=== PATIENT | male | born 1930 | race African-American/Black ===

== ENCOUNTER → 2017-09-13 | Outpatient (CLI) | payer MEDICARE, OTHER ==
--- NOTE | 2017-09-13 17:38 | RADIOLOGY REPORT (SQ) ---
EXAM DESCRIPTION: CHEST PA/LAT COMPLETED DATE/TIME: 09/13/2017 5:24 pm REASON FOR STUDY: Cough, Dementia in other diseases classified elsewhere with behavioral dist COMPARISON: 09/07/2016 EXAM PARAMETERS: NUMBER OF VIEWS: two views TECHNIQUE: Digital Frontal and Lateral radiographic views of the chest acquired. RADIATION DOSE: NA LIMITATIONS: none FINDINGS: LUNGS AND PLEURA: Mild chronic interstitial changes. No infiltrates or effusions. No mas s. MEDIASTINUM AND HILAR STRUCTURES: No masses or contour abnormalities. HEART AND VASCULAR STRUCTURES: No significant abnormality. BONES: No acute findings. HARDWARE: Pacemaker/defibrillator. OTHER: No other significant finding. IMPRESSION: Mild chronic lung changes with no acute cardiopulmonary disease. TECHNICAL DOCUMENTATION: JOB ID: [id number] [employer]- All Rights Reserved
== END ==
LOC: RAD 16:58
PROVIDERS: ATTEND Family Medicine
DX: R05 Cough (principal); F02.81 Dementia in other diseases classified elsewhere, unspecified severity, with behavioral disturbance
CPT/HCPCS: 71020

== ENCOUNTER 2017-09-17 15:45 | Emergency (ER) | payer MEDICARE, OTHER ==
[2017-09-17 16:36] LABS: ABSOLUTE EOSINOPHILS # (AUTO) 0.2 10^3/uL (0.0-0.6); ABSOLUTE LYMPHOCYTES (AUTO) 1.3 10^3/uL (0.5-4.7); ABSOLUTE MONOCYTES (AUTO) 0.5 10^3/uL (0.1-1.4); BASOPHILS % (AUTO) 0.5 % (0-2); EOSINOPHILS % (AUTO) 1.6 % (0-6); HEMOGLOBIN 17.9 g/dL (13.5-17.0); HGB HCT DIFFERENCE -2.2; LYMPHOCYTES % (AUTO) 12.9 % (13-45); MEAN CORPUSCULAR HEMOGLOBIN 33.1 pg (27.0-33.4); MEAN CORPUSCULAR VOLUME 104 fl (80-97); MONOCYTES % (AUTO) 4.6 % (3-13); RED CELL DISTRIBUTION WIDTH 17.7 % (11.5-14.0); SEGMENTED NEUTROPHILS % (AUTO) 80.4 % (42-78)
--- NOTE | 2017-09-17 16:37 | ER Document Report ---
ED Respiratory Problem - General Chief Complaint: Choked/Choking Stated Complaint: DIFFICULTY BREATHING Time Seen by Provider: 09/17/17 16:36 Mode of Arrival: Medic Information source: Patient, Relative - Patient's daughter is here with the patient. She is giving the information secondary to the patient having severe dementia. Cannot obtain history due to: Dementia TRAVEL OUTSIDE OF THE [place] IN LAST 30 DAYS: No - HPI Notes: Earlier today prior to arrival the patient was drinking water when he choked on it. He came out of his mouth and his nose. The daughter wanted him brought in to be examined to make sure he did not have any in his lungs. She states that he does see Dr. Monte and he had recent blood work however they have not gotten the results of it and she would like that as well. She states that he is due for a swallow study on the of this month and she is wondering if we can get it done today in the emergency department. Patient has no complaints - Related Data Allergies/Adverse Reactions: No Known Allergies Allergy (Unverified 12/06/11 18:45) Past Medical History - General Information source: [facility] Records Cannot obtain history due to: Dementia - Social History Smoking Status: Former Smoker Cigarette use (# per day): No Frequency of alcohol use: None Drug Abuse: None Lives with: Spouse/Significant other Family History: Reviewed & Not Pertinent - Past Medical History Cardiac Medical History: Reports: Hx Congestive Heart Failure, Hx Coronary Artery Disease, Hx Hypercholesterolemia, Hx Hypertension Denies: Hx Atrial Fibrillation, Hx Heart Attack, Hx Peripheral Vascular Disease, Hx Pulmonary Embolism, Hx Heart Murmur Pulmonary Medical History: Reports: Hx Bronchitis, Hx COPD, Hx Pneumonia Denies: Hx Asthma, Hx Respiratory Failure, Hx Sleep Apnea, Hx Tuberculosis Neurological Medical History: Reports: Hx Cerebrovascular Accident. Denies: Hx Seizures Renal/ Medical History: Reports: Hx Benign Prostatic Hyperplasia. Denies: Hx End Stage Renal Disease, Hx Kidney Stones, Hx Peritoneal Dialysis Malignancy Medical History: Denies Hx Lung Cancer Musculoskeltal Medical History: Reports Hx Arthritis, Denies Hx Fibromyalgia, Denies Hx Multiple Sclerosis, Denies Hx Muscular Dystrophy Psychiatric Medical History: Reports: Hx Dementia Denies: Hx Depression Traumatic Medical History: Denies: Hx Fractures Past Surgical History: Reports: Hx Cardiac Surgery - pacemaker dfib placed, Hx Pacemaker - Immunizations Hx Diphtheria, Pertussis, Tetanus Vaccination: Yes - unk Hx Pneumococcal Vaccination: 10/17/08 Review of Systems - Review of Systems Notes: Systems is obtained from the daughter as the patient has dementia. It is limited tothis. Constitutional: denies: Fever EENT: Difficulty swallowing Respiratory: Cough, Short of breath Gastrointestinal: denies: Diarrhea, Vomiting Hematologic/Lymphatic: No symptoms reported Neurological/Psychological: Confusion, Dementia Physical Exam - Vital signs Vitals: Pulse Ox 98 09/17/17 15:49 - Notes Notes: PHYSICAL EXAMINATION: GENERAL: Mireya zazueta male sitting quietly in the bed appearing to be in no acute distress. HEAD: Atraumatic, normocephalic. EYES: Pupils equal round and reactive to light, extraocular movements intact, sclera anicteric, conjunctiva are normal. ENT: Nares patent, oropharynx clear without exudates. Moist mucous membranes. NECK: Normal range of motion, supple without lymphadenopathy LUNGS: Mild expiratory wheezes left greater than right. Rhonchi left lower lung base. HEART: Regular rate and rhythm without murmurs. Pacer left anterior chest wall no signs or symptoms of infection. ABDOMEN: Soft, nontender, nondistended abdomen. No guarding, no rebound. No masses appreciated. Musculoskeletal: Normal range of motion, no pitting or edema. No cyanosis. NEUROLOGICAL: Cranial nerves grossly intact. Normal speech, alert to self only. Normal sensory, motor exams PSYCH: Normal mood, normal affect. SKIN: Warm, Dry, normal turgor, no rashes or lesions noted. Course - Re-evaluation Re-evalutation: 09/17/17 19:57 Patient remained stable while in the emergency department. I did discuss with the patient's daughter that the patient did have increased sodium. I did tell her that she would need to have this blood test repeated in the next few days. I told her to encourage water for the patient. She verbalized understanding. Patient does have mildly increased troponin. He has renal insufficiency as well as dehydration as well as elevated troponins historically. Patient did not complain of any chest pain today. His EKG does not show any acute changes. Will be discharged home post follow-up. Discussed with the patient's daughter that end-stage dementia does result in the patient having failure to thrive which includes decreased p.o. intake she verbalized understanding - Vital Signs Vital signs: Temp Pulse Resp BP Pulse Ox 22 H 123/70 99 09/17/17 19:01 09/17/17 19:01 09/17/17 19:01 - Laboratory Result Diagrams: 09/17/17 16:15 09/17/17 16:15 Laboratory results interpreted by me: 09/17/17 09/17/17 09/17/17 16:15 16:15 18:30 Hgb 17.9 H Hct 55.9 H MCV 104 H RDW 17.7 H Plt Count 951 H Seg Neutrophils % 80.4 H Lymphocytes % 12.9 L Sodium 157.4 H Chloride 116 H BUN 23 H Creatinine 1.45 H Est GFR ( Amer) 56 L Est GFR (Non-Af Amer) 46 L Glucose 138 H Creatine Kinase 45 L Urine Urobilinogen 2.0 H Urine Ascorbic Acid 40 H - Diagnostic Test Radiology results interpreted by me: 09/17/17 17:02 No acute abnormality - EKG Interpretation by Me Rate: Tachycardia - 105 V paced - Transfer of Care Notes: 09/17/17 18:52 Review the labs as well as a chest x-ray results and EKG with the patient's daughter. I also went over adults of test on the end of August. I did tell the patient's daughter that the patient was mildly dehydrated and that he would need to be encouraged to take in fluids. She is to be discharged home in the care of his daughter. He is to follow-up this swallow study in the . I did tell the patient's daughter to watch the patient closely over the next week. If he develops shortness of breath fever or a productive cough he is to follow-up with his primary medical doctor immediately or present to the ER for further evaluation. Patient's daughter verbalized understanding she was agreeable to the discharge plan Discharge - Discharge Clinical Impression: Hypernatremia, Mild dehydration Dementia Qualifiers: Dementia type: unspecified type Condition: Stable Additional Instructions: Is encouraged the patient to drink water. Please also follow-up with his primary medical doctor within the next week for repeat sodium level. Please also follow-up with the swallow eval as scheduled on September 29. Return to emergency department if you have any concerns Referrals: ALANNA MONTE MD [Primary Care Provider] - Follow up in 3-5 days (Please have a repeat sodium level checked in the next week)
[2017-09-17 16:49] LABS: HEMATOCRIT 55.9 % (37.9-51.0)
--- NOTE | 2017-09-17 16:53 | RADIOLOGY REPORT (SQ) ---
11 EXAM DESCRIPTION: CHEST SINGLE VIEW COMPLETED DATE/TIME: 09/17/2017 4:40 pm REASON FOR STUDY: bed 4 db COMPARISON: 817 EXAM PARAMETERS: NUMBER OF VIEWS: One view. TECHNIQUE: Single frontal radiographic view of the chest acquired. RADIATION DOSE: NA LIMITATIONS: None. FINDINGS: LUNGS AND PLEURA: No opacities, masses or pneumothorax. No pleural effusion. MEDIASTINUM AND HILAR STRUCTURES: No masses. Contour normal. HEART AND VASCULAR STRUCTURES: Heart normal in size. Normal vasculature. BONES: No acute findings. HARDWARE: Left anterior chest wall AICD. OTHER: No other significant finding. IMPRESSION: Stable radiographic appearance of the chest. No evidence of acute cardiopulmonary proce ss. TECHNICAL DOCUMENTATION: JOB ID: [id number] [employer]- All Rights Reserved
[2017-09-17 16:58] LABS: ALANINE AMINOTRANSFERASE 22 U/L (21-72); ALBUMIN 4.4 g/dL (3.5-5.0); ALKALINE PHOSPHATASE 89 U/L (38-126); ANION GAP 17 (5-19); ASPARTATE AMINO TRANSFERASE 25 U/L (17-59); BILIRUBIN,DIRECT 0.3 mg/dL (0.0-0.4); BILIRUBIN,TOTAL 0.4 mg/dL (0.2-1.3); BLOOD UREA NITROGEN 23 mg/dL (7-20); CALCIUM 9.7 mg/dL (8.4-10.2); CARBON DIOXIDE 24 mmol/L (22-30); CHLORIDE 116 mmol/L (98-107); CREATINE KINASE 45 U/L (55-170); CREATININE RESULT 1.45 mg/dL (0.52-1.25); GLUCOSE 138 mg/dL (75-110); POTASSIUM 4.7 mmol/L (3.6-5.0); SODIUM 157.4 mmol/L (137-145); TOTAL PROTEIN 7.7 g/dL (6.3-8.2)
[2017-09-17 17:09] LABS: CREATINE KINASE MB 1.53 ng/mL (<4.55)
[2017-09-17 17:16] LABS: TROPONIN I 0.034 ng/mL
[2017-09-17] MEDS ORDERED: NORMAL SALINE 500 ML IV ONE (17:23)
[2017-09-17 19:00] LABS: APPEARANCE,URINE CLEAR; BILIRUBIN,URINE NEGATIVE (NEGATIVE); GLUCOSE, URINE NEGATIVE (NEGATIVE); KETONES,URINE NEGATIVE (NEGATIVE); LEUKOCYTE ESTERASE,URINE NEGATIVE (NEGATIVE); NITRITE,URINE NEGATIVE (NEGATIVE); PROTEIN,URINE NEGATIVE (NEGATIVE); URINE SPECIFIC GRAVITY 1.017
[2017-09-17 20:45] VITALS: BP 137/70
--- NOTE | 2017-09-18 09:19 | EKG REPORT ---
SEVERITY:- ABNORMAL ECG - VENTRICULAR-PACED COMPLEXES NONSPECIFIC ST DEPRESSION POSSIBLE ATRIAL FIBRILLATION , REPEAT EKG WITH NO BASELINE TREMORS IF POSSIBLE. : Confirmed by: David Alexis MD 18-Sep-2017 09:18:21
== END 2017-09-17 20:44 | disposition home or self-care (01) ==
LOC: ER 15:45
DX: E87.0 Hyperosmolality and hypernatremia (principal); E86.0 Dehydration; N28.9 Disorder of kidney and ureter, unspecified; R13.10 Dysphagia, unspecified; I25.10 Atherosclerotic heart disease of native coronary artery without angina pectoris; I10 Essential (primary) hypertension; J44.9 Chronic obstructive pulmonary disease, unspecified; R05 Cough; R00.0 Tachycardia, unspecified; R06.02 Shortness of breath; F03.90 Unspecified dementia, unspecified severity, without behavioral disturbance, psychotic disturbance, mood disturbance, and anxiety; Z87.891 Personal history of nicotine dependence; Z95.810 Presence of automatic (implantable) cardiac defibrillator
CPT/HCPCS: 93005; 99285; 96360; 36415; 82553; 82550; 85025; 80053; 81001; 84484; 71010; 93010; J7040

== ENCOUNTER → 2017-10-11 | Outpatient (CLI) | payer MEDICARE, OTHER ==
[2017-10-11 09:31] LABS: ANION GAP 9 (5-19); BLOOD UREA NITROGEN 24 mg/dL (7-20); CALCIUM 9.6 mg/dL (8.4-10.2); CARBON DIOXIDE 26 mmol/L (22-30); CHLORIDE 109 mmol/L (98-107); CREATININE RESULT 1.47 mg/dL (0.52-1.25); GLUCOSE 101 mg/dL (75-110); POTASSIUM 4.2 mmol/L (3.6-5.0); SODIUM 144.3 mmol/L (137-145)
--- NOTE | 2017-10-11 11:34 | ST Modified Barium Swallow ---
Recommendation - Recommendations Recommendations: No skilled intervention indicated, no diet change recommendations. Advised patient's daughter to alternate bites and sips, and encourage occasional dry swallows during meals. Voiced understanding. Medical Diagnoses - Medical Diagnoses Medical Diagnosis Description & ICD-10 Code(s): dysphagia R13.10 Other Medical Diagnoses/Co-Morbidities: Per family report- 2 prior CVAs, pacemaker ST Modified Barium Swallow - General Date: 10/11/17 Referring Physician: Rah Carreno MD Date of Onset: 09/11/17 - approximate onset date Reason for Referral: increased coughing at meals - History History obtained from: Family -: Medical - Patient arrived with daughter, who acted as historian. She reports that the patient has demonstrated increased coughing during meals for about 1 month. The patient has had 2 prior CVAs, most recent in 2013. No recent pneumonia reported. Medications: per medication list brought by daughter: allopurinol, aricept, aspirin, flomax, acetazolamide, lasix, levetracetam, omeprazole, proair HFA, simvastatin, temazepam, flonase Allergies: none reported - Functional Status Prior Functional Status: INDEPENDENT: feeding - independent - Subjective Patient/caregiver goal(s): safe swallow Cognitive-Linguistic Function: Moderately Impaired Speech Intelligibility: Moderately dysarthric Current Nutritional Means: PO Current PO diet: Regular Current symptoms: Coughing Pain: Patient reports, 0/5 - Objective Assessment: Upright, Left Lateral - Food Trials Used Food trials used: Thin liquids, Pureed, Regular The patient: Was Able to Self Feed - Oral-Motor Skills Laryngeal Function: Volitional Cough - wfl, no volitional swallow - Assessment Oral prep: Normal Labial closure: Adequate Leakage: None Mastication: Adequate Lingual Movement: Normal Oral stage: Age appropriate - Pharyngeal Stage Initiation of Pharyngeal Stage Reflex: Normal Decreased laryngeal elevation: No Reduced Velopharyngeal Closure: no Reduced pressure generation: No reduced tongue-based retraction: No Pre-swallow pooling in valleculae: None Pre-Swallow pooling in pyriforms: None Reduced Thyro-Hyoid approximation: No Reduced epiglottic excursion: No Multiple Swallows with: Cleared w/ Liquid Assist Post-swallow residulas vallecular: Mild Post-Swallow residuals in pyriforms: None Pharyngeal Stage Comments: Timely swallow reflex noted. Some mild residue present in valleculae after the swallow on multiple textures. Patient able to clear residue with a liquid wash or with second swallow, needed verbal cue to complete dry swallow to clear residue. Penetration of residue from thin liquid trial seen, no aspiration. - Fall Risk Assessment Medications/Conditions that increase fall risks include: Antidepressants, sedatives, anti-arrhythmic, diuretic, benzodiazipenes, neuroleptics. BP regulation problems, cardiac problems, balance or gait deficits, neurological problems. Is patient considered at risk for falls: age appropriate Fall Risk Actions Taken: No action needed - Behavioral Observations During evaluation process patient: was pleasant, was cooperative Mental Status: Other - some confusion noted - Treatment / Educational Needs: Treatment/Education Needs: Treatment consisted of patient education on the role of the Speech Pathologist. Patient's plan of care and golas were communicated as well as scheduling and attendance policies. Recommendations for initial home program were shared. Patient demonstrated understanding and verbalized agreement. - Impression/Summary Laryngeal Penetration: Yes, Flash, after swallow Consistency: Thin Tracheal Aspiration: no Patient presents with: Pharyngeal stage dysph., Mild-Moderate Risk of Aspiration: Mild Risk of nutritional compromise: WNL Evaluation and Findings: Timely swallow reflex seen, mild residue noted in valleculae after the swallow on multiple textures. Residue of thin liquid seen to penetrate, but did not aspirate. Residue cleared with second swallow, patient required verbal cue to complete second swallow. - Recommendations Solid diet recommendations: Regular - may be downgraded due to patient's comfort level or dentition Liquid Diet Modification: Thin Pt/Family education and followup with MD: Yes Dysphagia therapy with [employer]: no Recommended techniques: Fully Upright During Meal, Small Bites and Sips, Alternate Bites/Sips Information, Precautions and Recommendations: Patient (Verbal), Family Member ( Written), Family Member (Verbal) - Time Total Time: 20 - Plan of Care Strategies to optimize patient understanding include:: ongoing assessment of educational needs, implementation of educational strategies, and re-education. - - -: Thank you for the opportunity to work with this patient and his/her family. Should you have any questions about this patient's plan or progress, I can be reached at [phone]. Charge G Code? - - -: Yes ST F.L. Impairment Category - Rationale Based On Rationale Based On: Func. Asses. Tool Results - Swallowing Current G8996: CI 1-19% Impaired Goal G8997: CI 1-19% Impaired Discharge G8998: CI 1-19% Impaired
--- NOTE | 2017-10-11 14:53 | RADIOLOGY REPORT (SQ) ---
EXAM DESCRIPTION: COOKIE SWALLOW COMPLETED DATE/TIME: 10/11/2017 8:59 am REASON FOR STUDY: DYSPHAGIA R13.10 DYSPHAGIA, UNSPECIFIED COMPARISON: Modified barium swallow 04/12/2012 TECHNIQUE: Videofluoroscopic swallowing examination was performed in conjunction with speech patholo gy. Videofluoroscopic imaging was obtained and reviewed and these are the findings: RADIATION DOSE: 2 minutes 34 seconds of fluoroscopy was used. 2 images saved to PACS. LIMITATIONS: None FINDINGS: The patient was brought into the fluoro room and placed upright on a modified barium swall ow chair. The patient was then given multiple consistencies mixed with barium to swallow under live fluoroscopic video guidance. According to the Speech Pathologist there was no penetration or aspirat ion. Post swallow residual contrast seen within the vallecular. Mild cricopharyngeal hypertrophy. IMPRESSION: NO EVIDENCE OF PENETRATION OR ASPIRATIONPLEASE SEE SPEECH PATHOLOGIST REPORT FOR OTHER F INDINGS AND RECOMMENDATIONS. COMMENT: Quality ID [id number]: Final reports for procedures using fluoroscopy that document radiation exp osure indices, or exposure time and number of fluorographic images (if radiation exposure indices are not available) TECHNICAL DOCUMENTATION: JOB ID: [id number] [employer]- All Rights Reserved
== END ==
LOC: RAD 08:15
PROVIDERS: ATTEND Family Medicine
DX: R13.10 Dysphagia, unspecified (principal); F02.81 Dementia in other diseases classified elsewhere, unspecified severity, with behavioral disturbance
CPT/HCPCS: 36415; 80048; 74230; 92611; G8996; G8997; G8998

== ENCOUNTER 2018-04-19 21:20 | Inpatient (IN) | payer OTHER, MEDICARE ==
--- NOTE | 2018-04-19 21:53 | ER Document Report ---
ED Respiratory Problem - General Chief Complaint: Shortness Of Breath Stated Complaint: COUGH/CONGESTION Time Seen by Provider: 04/19/18 21:35 Mode of Arrival: Medic Information source: Relative TRAVEL OUTSIDE OF THE [place] IN LAST 30 DAYS: No - HPI Patient complains to provider of: Cough Onset: This afternoon Duration: Intermittent episodes Initiating Event: No: Allergy, Aspiration/Choking, Exertion, Exposure to chemicals, Exposure to dust, Exposure to fumes, Exposure to mold, Exposure to smoke, Out of meds, Sports/exercise, URI, Other Quality of pain: No pain Severity: Moderate Context: Other - DEBILITATED 2nd TO PRIOR CVA's. denies: Hx asthma, Hx CHF, Hx COPD, Malignancy, Recent cardiac event, Recent foreign travel, Recent long distance trvl, Recent immobilization, Recent surgery, Smoker Short of Breath: Mild Cough: Productive Sputum amount: Small - WEAKNESS, HAS DIFFICULTY MOBILIZING Associated symptoms: Congestion, Cough, Sweaty, Other - COMPLAINED THIS PM OF FEELING UNWELL. DAUGHTER SAYS THIS IS UNUSUAL.. denies: Chills, Fever Similar symptoms previously: Yes - NOT RECENT Recently seen / treated by doctor: No - Related Data Allergies/Adverse Reactions: No Known Allergies Allergy (Unverified 12/06/11 18:45) Past Medical History - General Information source: Relative - Social History Smoking Status: Former Smoker - QUIT DECADES AGO Chew tobacco use (# tins/day): No Frequency of alcohol use: Rare Drug Abuse: None Lives with: Family - DAUGHTER Family History: Reviewed & Not Pertinent Patient has suicidal ideation: No Patient has homicidal ideation: No - Past Medical History Cardiac Medical History: Reports: Hx Congestive Heart Failure, Hx Coronary Artery Disease, Hx Hypercholesterolemia, Hx Hypertension Denies: Hx Atrial Fibrillation, Hx Heart Attack, Hx Peripheral Vascular Disease, Hx Pulmonary Embolism, Hx Heart Murmur Pulmonary Medical History: Reports: Hx Bronchitis, Hx COPD, Hx Pneumonia Denies: Hx Asthma, Hx Respiratory Failure, Hx Sleep Apnea, Hx Tuberculosis Neurological Medical History: Reports: Hx Cerebrovascular Accident - x 2. Denies: Hx Seizures Endocrine Medical History: Reports: None Renal/ Medical History: Reports: Hx Benign Prostatic Hyperplasia. Denies: Hx End Stage Renal Disease, Hx Kidney Stones, Hx Peritoneal Dialysis Malignancy Medical History: Reports None, Denies Hx Lung Cancer GI Medical History: Reports: None Musculoskeltal Medical History: Reports Hx Arthritis, Denies Hx Fibromyalgia, Denies Hx Multiple Sclerosis, Denies Hx Muscular Dystrophy Psychiatric Medical History: Reports: Hx Dementia Denies: Hx Depression Traumatic Medical History: Reports: None. Denies: Hx Fractures Past Surgical History: Reports: Hx Cardiac Surgery - pacemaker dfib placed, Hx Pacemaker - Immunizations Hx Diphtheria, Pertussis, Tetanus Vaccination: Yes - unk Hx Pneumococcal Vaccination: 10/17/08 Review of Systems - Review of Systems Constitutional: See HPI EENT: No symptoms reported Cardiovascular: No symptoms reported Respiratory: See HPI Gastrointestinal: No symptoms reported Genitourinary: No symptoms reported Musculoskeletal: No symptoms reported Skin: No symptoms reported Neurological/Psychological: Weakness, Speech impairment - MILD, CHRONIC. denies : Confusion Physical Exam - Vital signs Vitals: Pulse Ox 98 04/19/18 21:28 Interpretation: Tachycardic, Tachypneic - General General appearance: Lethargic - MILD, AWAKENS TO VOICE In distress: None - HEENT Head: Normocephalic Eyes: Normal Conjunctiva: Normal Ears: Normal Nasal: Normal Mouth/Lips: Normal Mucous membranes: Dry - MILDLY Pharynx: Normal Neck: Normal, Supple - Respiratory Respiratory status: No respiratory distress, Tachypnea Chest status: Nontender Breath sounds: Rales - RML, Rhonchi - RML - Cardiovascular Rhythm: Regular Heart sounds: Normal auscultation Murmur: No - Abdominal Inspection: Normal Distension: No distension Bowel sounds: Hypoactive - Extremities General upper extremity: Normal inspection General lower extremity: Normal inspection - Neurological Neuro grossly intact: Yes Cognition: Normal Orientation: AAOx4 - Psychological Associated symptoms: Normal affect, Normal mood - Skin Skin Temperature: Warm Skin Moisture: Dry Skin Color: Normal Skin Turgor: Elastic Course - Vital Signs Vital signs: Temp Pulse Resp BP Pulse Ox 98.5 F 29 H 113/78 96 04/19/18 22:35 04/19/18 23:01 04/19/18 23:01 04/19/18 23:01 - Laboratory Result Diagrams: 04/19/18 21:20 04/19/18 21:20 Laboratory results interpreted by me: 04/19/18 04/19/18 04/19/18 21:20 21:20 21:20 Hct 52.0 H MCV 101 H RDW 16.1 H Plt Count 934 H Sodium 147.0 H Potassium 5.1 H BUN 24 H Creatinine 1.35 H Est GFR (Non-Af Amer) 50 L NT-Pro-B Natriuret Pep 4920 H Urine Protein Urine Urobilinogen Urine Ascorbic Acid 04/19/18 22:33 Hct MCV RDW Plt Count Sodium Potassium BUN Creatinine Est GFR (Non-Af Amer) NT-Pro-B Natriuret Pep Urine Protein 30 H Urine Urobilinogen 4.0 H Urine Ascorbic Acid 20 H - Diagnostic Test Radiology reviewed: Image reviewed, Reports reviewed - EKG Interpretation by Me EKG shows normal: abnormal: Sinus rhythm - PACED RHYTHM Rate: Normal Rhythm: PVC's Jacobson/QRS: IVCD - Consults DR. MONTE Time consulted: 23:47 Consulted provider: will see as inpatient Discharge - Discharge Clinical Impression: Dehydration, Hypoxemia, Tachypnea, CVA, old, hemiparesis Condition: Fair Disposition: ADMITTED OBSERVATION Admitting Provider: Wai Unit Admitted: Telemetry Referrals: ALANNA MONTE MD [Primary Care Provider] - Follow up as needed
[2018-04-19 21:59] LABS: HEMOGLOBIN 16.9 g/dL (13.5-17.0); MEAN CORPUSCULAR HEMOGLOBIN 32.9 pg (27.0-33.4); MEAN CORPUSCULAR HGB CONC 32.5 g/dL (32.0-36.0); MEAN CORPUSCULAR VOLUME 101 fl (80-97); PLATELET COUNT 934 10^3/uL (150-450); RED BLOOD COUNT 5.15 10^6/uL (4.35-5.55); RED CELL DISTRIBUTION WIDTH 16.1 % (11.5-14.0); WHITE BLOOD COUNT 7.6 10^3/uL (4.0-10.5)
[2018-04-19 22:13] LABS: ALANINE AMINOTRANSFERASE 27 U/L (21-72); ALBUMIN 4.1 g/dL (3.5-5.0); ALKALINE PHOSPHATASE 69 U/L (38-126); ANION GAP 12 (5-19); ASPARTATE AMINO TRANSFERASE 26 U/L (17-59); BILIRUBIN,DIRECT 0.4 mg/dL (0.0-0.4); BILIRUBIN,TOTAL 0.4 mg/dL (0.2-1.3); BLOOD UREA NITROGEN 24 mg/dL (7-20); CALCIUM 9.6 mg/dL (8.4-10.2); CARBON DIOXIDE 30 mmol/L (22-30); CHLORIDE 105 mmol/L (98-107); GLUCOSE 105 mg/dL (75-110); POTASSIUM 5.1 mmol/L (3.6-5.0); TOTAL PROTEIN 7.4 g/dL (6.3-8.2)
[2018-04-19 22:18] LABS: ABSOLUTE LYMPHOCYTES# (MANUAL) 1.1 10^3/uL (0.5-4.7); ABSOLUTE MONOCYTES # (MANUAL) 0.6 10^3/uL (0.1-1.4); ABSOLUTE NEUTROPHILS# (MANUAL) 5.5 10^3/uL (1.7-8.2); BAND NEUTROPHILS % (MANUAL) 4 % (3-5); BASOPHILS % (MANUAL) 1 % (0-2); EOSINOPHILS % (MANUAL) 4 % (0-6); LYMPHOCYTES % (MANUAL) 14 % (13-45); MONOCYTES % (MANUAL) 8 % (3-13); SEGMENTED NEUTROPHILS % (MAN) 69 % (42-78); TOTAL CELLS COUNTED 100
[2018-04-19 22:19] LABS: ANISOCYTOSIS 1+; PLATELET COMMENT INCREASED
[2018-04-19 22:22] LABS: POIKILOCYTOSIS SLIGHT; POLYCHROMASIA SLIGHT; TARGET CELLS SLIGHT
[2018-04-19 22:25] LABS: CREATINE KINASE MB 1.36 ng/mL (<4.55); TROPONIN I 0.022 ng/mL
--- NOTE | 2018-04-19 22:43 | RADIOLOGY REPORT (SQ) ---
EXAM DESCRIPTION: XR CHEST 1 VIEW COMPLETED DATE/TME: 04/19/2018 21:35 CLINICAL HISTORY: 87 years Male, CONGESTION, HYPOXEMIA COMPARISON: 12.2.17. 09/13/2017, report only. NUMBER OF VIEWS/TECHNIQUE: 1/AP FINDINGS: Adequate lung volume, mild chronic interstitial markings, normal cardiac silhouette, atherosclerosis, left cardiac stimulator with leads, and intact bony thorax. IMPRESSION: No acute cardiopulmonary findings.
[2018-04-19] MEDS ORDERED: LEVOFLOXACIN 750 MG/D5W RTU 750 MG/150 ML RTUPB IV ONE (22:45)
[2018-04-19] MEDS ORDERED: NORMAL SALINE 1000 ML 500 ML IV PRN (22:48)
[2018-04-19 22:51] LABS: APPEARANCE,URINE SLIGHTLY-CLOUDY; BILIRUBIN,URINE NEGATIVE (NEGATIVE); COLOR,URINE YELLOW; GLUCOSE, URINE NEGATIVE (NEGATIVE); KETONES,URINE NEGATIVE (NEGATIVE); LEUKOCYTE ESTERASE,URINE NEGATIVE (NEGATIVE); NITRITE,URINE NEGATIVE (NEGATIVE); PROTEIN,URINE 30 mg/dL (NEGATIVE); URINE SPECIFIC GRAVITY 1.019
[2018-04-19] MEDS ORDERED: NORMAL SALINE 1000 ML 1,000 ML IV PRN (23:54)
[2018-04-19] MEDS ORDERED: IPRATROPIUM/ALBUTEROL 0.5-2.5 MG/3 ML AMPUL NEB PRN (23:54)
[2018-04-19] MEDS ORDERED: ACETAMINOPHEN 325 MG TABLET PO PRN (23:54)
[2018-04-19] MEDS ORDERED: GUAIFENESIN SYRP 200 MG/10 ML UDC PO PRN (23:54)
[2018-04-20] MEDS ORDERED: ACETAMINOPHEN 325 MG TABLET PO PRN (00:39)
[2018-04-20 06:27] LABS: ABSOLUTE BASOPHILS # (AUTO) 0.1 10^3/uL (0.0-0.2); ABSOLUTE EOSINOPHILS # (AUTO) 0.2 10^3/uL (0.0-0.6); ABSOLUTE LYMPHOCYTES (AUTO) 0.8 10^3/uL (0.5-4.7); ABSOLUTE MONOCYTES (AUTO) 0.5 10^3/uL (0.1-1.4); ABSOLUTE NEUT (AUTO) 5.3 10^3/uL (1.7-8.2); BASOPHILS % (AUTO) 1.4 % (0-2); EOSINOPHILS % (AUTO) 2.4 % (0-6); HEMATOCRIT 43.2 % (37.9-51.0); LYMPHOCYTES % (AUTO) 11.8 % (13-45); MEAN CORPUSCULAR HEMOGLOBIN 32.5 pg (27.0-33.4); MEAN CORPUSCULAR HGB CONC 32.6 g/dL (32.0-36.0); MEAN CORPUSCULAR VOLUME 100 fl (80-97); MONOCYTES % (AUTO) 7.3 % (3-13); PLATELET COUNT 734 10^3/uL (150-450); RED BLOOD COUNT 4.33 10^6/uL (4.35-5.55); RED CELL DISTRIBUTION WIDTH 16.3 % (11.5-14.0); SEGMENTED NEUTROPHILS % (AUTO) 77.1 % (42-78); TOTAL CELLS COUNTED % (AUTO) 100 %; WHITE BLOOD COUNT 6.8 10^3/uL (4.0-10.5)
[2018-04-20 06:36] LABS: HEMOGLOBIN 14.1 g/dL (13.5-17.0)
[2018-04-20 06:41] LABS: ALANINE AMINOTRANSFERASE 24 U/L (21-72); ALBUMIN 3.3 g/dL (3.5-5.0); ALKALINE PHOSPHATASE 57 U/L (38-126); ANION GAP 11 (5-19); ASPARTATE AMINO TRANSFERASE 19 U/L (17-59); BILIRUBIN,DIRECT 0.3 mg/dL (0.0-0.4); BILIRUBIN,TOTAL 0.4 mg/dL (0.2-1.3); BLOOD UREA NITROGEN 23 mg/dL (7-20); CALCIUM 8.7 mg/dL (8.4-10.2); CARBON DIOXIDE 23 mmol/L (22-30); CHLORIDE 111 mmol/L (98-107); GLUCOSE 87 mg/dL (75-110); POTASSIUM 4.8 mmol/L (3.6-5.0); SODIUM 145.1 mmol/L (137-145); TOTAL PROTEIN 5.9 g/dL (6.3-8.2)
--- NOTE | 2018-04-20 07:35 | EKG REPORT ---
SEVERITY:- ABNORMAL ECG - VENTRICULAR-PACED COMPLEXES NON-DIAGNOSTIC : Confirmed by: David Alexis MD 20-Apr-2018 07:34:50
[2018-04-20] MEDS ORDERED: CEFTRIAXONE SODIUM 1,000 MG in DEXTROSE 5%-WATER 50 ML IV SCH (10:00)
[2018-04-20] MEDS ORDERED: CEFTRIAXONE 1 GM/D5W RTU 1 GM/50 ML RTUPB IV SCH (10:00)
[2018-04-20] MEDS: ACETAZOLAMIDE 250 MG TABLET PO SCH (11:04)
[2018-04-20] MEDS: ENOXAPARIN SODIUM INJ 30 MG/0.3 ML DISP.SYRIN SUBCUT SCH (11:04)
[2018-04-20] MEDS: ALLOPURINOL 100 MG TABLET PO SCH (11:08)
[2018-04-20] MEDS: ASPIRIN 81 MG TABLET, ENT COATED PO SCH (11:09)
[2018-04-20] MEDS: AZITHROMYCIN 250 MG TABLET PO SCH (11:09)
[2018-04-20] MEDS: LANSOPRAZOLE 30 MG TAB.RAP.DR PO SCH (11:10)
[2018-04-20] MEDS: LEVETIRACETAM 500 MG TABLET PO SCH ×2 (11:10→17:30)
[2018-04-20] MEDS: TAMSULOSIN HCL 0.4 MG CAP.SR.24H PO SCH (11:11)
[2018-04-20] MEDS: CEFEPIME 1 GM/D5W RTU 1 GM/50 ML RTUPB IV SCH ×2 (11:12→22:21)
[2018-04-20] MEDS ORDERED: NORMAL SALINE 1000 ML 1,000 ML IV PRN (11:50)
--- NOTE | 2018-04-20 11:59 | PDOC H&P ---
History of Present Illness Admission Date/PCP: 04/19/18 23:58 ALANNA MONTE MD Patient complains of: Cough congestion'sAnd weakness History of Present Illness: HEMANT GRIFFITH is a 87 year old male This is a 87-year-old male with a significant history of the dementia with the history of the stroke and chronic sinus problem with the cough currently live with the family brought to the emergency department because patients not feeling well and increasing more cough and congestion'sIn the emergency department initial workup was all stable and ER physician thought patients may have labile dehydration and possible underlying pneumonia and decided to admit in the hospital for further evaluations Patients receive the IV antibiotic and IV fluid when I saw the patient on the floor with the family on a bedside patient's feeling much better still with some mild cough and congestion's Patient as usual underlying significant dementia but alert awake's patient's speech is always slurred denied any other symptoms Past Medical History Cardiac Medical History: Reports: Congestive Heart Failure, Coronary Artery Disease, Hyperlipidema, Hypertension Denies: Atrial Fibrillation, Myocardial Infarction, Peripheral Vascular Disease, Pulmonary Embolism, Heart Murmur Pulmonary Medical History: Reports: Bronchitis, Chronic Obstructive Pulmonary Disease (COPD), Pneumonia Denies: Asthma, Respiratory Failure, Sleep Apnea, Tuberculosis Neurological Medical History: Reports: Ischemic CVA, Seizures Endocrine Medical History: Reports: None Renal/ Medical History: Denies: End Stage Renal Disease Malignancy Medical History: Reports: None Denies: Lung Cancer GI Medical History: Reports: None, Gastroesophageal Reflux Disease Musculoskeltal Medical History: Reports: Arthritis Denies: Fibromyalgia Psychiatric Medical History: Reports: Dementia, Depression - anxiety Traumatic Medical History: Reports: None Past Surgical History Past Surgical History: Reports: Pacemaker Social History Lives with: Family - DAUGHTER Smoking Status: Former Smoker Frequency of Alcohol Use: Social Hx Recreational Drug Use: No Drugs: None Hx Prescription Drug Abuse: No Family History Family History: Reviewed & Not Pertinent Parental Family History Reviewed: Yes Children Family History Reviewed: Yes Sibling(s) Family History Reviewed.: Yes Medication/Allergy Home Medications: Allopurinol [Zyloprim 100 mg Tablet] 100 mg PO DAILY 07/18/14 Aspirin [Aspirin EC] 81 mg PO DAILY 07/18/14 Donepezil HCl [Aricept] 10 mg PO QHS 07/18/14 Furosemide [Lasix 20 mg Tablet] 20 mg PO QAMP PRN 07/18/14 Tamsulosin HCl [Flomax 0.4 mg Cap.sr] 0.4 mg PO DAILY 07/18/14 Acetazolamide [Diamox 250 mg Tab] 250 mg PO DAILY 04/19/18 Levetiracetam 1,000 mg PO Q12 04/19/18 Omeprazole 40 mg PO DAILY 04/19/18 Simvastatin 20 mg PO QHS 04/19/18 Allergies/Adverse Reactions: No Known Allergies Allergy (Unverified 12/06/11 18:45) Review of Systems Constitutional: PRESENT: weakness. ABSENT: chills, fever(s), headache(s), weight gain, weight loss Eyes: ABSENT: visual disturbances Ears: ABSENT: hearing changes Cardiovascular: ABSENT: chest pain, dyspnea on exertion, edema, orthropnea, palpitations Respiratory: PRESENT: cough. ABSENT: hemoptysis Gastrointestinal: ABSENT: abdominal pain, constipation, diarrhea, hematemesis, hematochezia, nausea, vomiting Genitourinary: ABSENT: dysuria, hematuria Musculoskeletal: ABSENT: joint swelling Integumentary: ABSENT: rash, wounds Neurological: ABSENT: abnormal gait, abnormal speech, confusion, dizziness, focal weakness, syncope Psychiatric: ABSENT: anxiety, depression, homidical ideation, suicidal ideation Endocrine: ABSENT: cold intolerance, heat intolerance, menstrual abnormalities, polydipsia, polyuria Hematologic/Lymphatic: ABSENT: easy bleeding, easy bruising, lymphadenopathy Physical Exam Vital Signs: Temp Pulse Resp BP Pulse Ox 97.5 F 77 16 113/78 98 04/20/18 08:44 04/20/18 08:44 04/20/18 08:44 04/20/18 08:44 04/20/18 08:44 Intake & Output 04/19/18 04/20/18 04/21/18 06:59 06:59 06:59 Intake Total 140 Balance 140 Weight 60.2 kg Physical Exam: Patient have underlying significant dementia but pleasant alert awake's and the left-sided hemiparesis and spasticity's General appearance: PRESENT: no acute distress Head exam: PRESENT: atraumatic, normocephalic Eye exam: PRESENT: conjunctiva pink, EOMI, PERRLA. ABSENT: scleral icterus Ear exam: PRESENT: normal external ear exam Mouth exam: PRESENT: moist, tongue midline Neck exam: PRESENT: full ROM. ABSENT: carotid bruit, JVD, lymphadenopathy, thyromegaly Respiratory exam: PRESENT: clear to auscultation charley Cardiovascular exam: PRESENT: RRR. ABSENT: diastolic murmur, rubs, systolic murmur Pulses: PRESENT: normal dorsalis pedis pul, +2 pedal pulses bilateral Vascular exam: PRESENT: normal capillary refill GI/Abdominal exam: PRESENT: normal bowel sounds, soft. ABSENT: distended, guarding, mass, organolmegaly, rebound, tenderness Rectal exam: PRESENT: deferred Extremities exam: ABSENT: pedal edema Neurological exam: PRESENT: alert, awake, oriented to person, oriented to place , oriented to time. ABSENT: motor sensory deficit Additional comments: Patient have a left-sided hemiparesis from the old strokes Psychiatric exam: PRESENT: appropriate affect, normal mood. ABSENT: homicidal ideation, suicidal ideation Skin exam: PRESENT: dry, intact, warm. ABSENT: cyanosis, rash Results Laboratory Results: 04/20/18 05:31 04/20/18 05:31 04/20/18 04/20/18 05:31 05:31 WBC 6.8 RBC 4.33 L Hgb 14.1 D Hct 43.2 MCV 100 H MCH 32.5 MCHC 32.6 RDW 16.3 H Plt Count 734 H Seg Neutrophils % 77.1 Lymphocytes % 11.8 L Monocytes % 7.3 Eosinophils % 2.4 Basophils % 1.4 Absolute Neutrophils 5.3 Absolute Lymphocytes 0.8 Absolute Monocytes 0.5 Absolute Eosinophils 0.2 Absolute Basophils 0.1 Sodium 145.1 H Potassium 4.8 Chloride 111 H Carbon Dioxide 23 Anion Gap 11 BUN 23 H Creatinine 1.03 Est GFR ( Amer) > 60 Est GFR (Non-Af Amer) > 60 Glucose 87 Calcium 8.7 Total Bilirubin 0.4 AST 19 ALT 24 Alkaline Phosphatase 57 Total Protein 5.9 L Albumin 3.3 L Impressions: Chest X-Ray 04/19/18 21:35 IMPRESSION: No acute cardiopulmonary findings. Assessment & Plan - Diagnosis (1) Chronic obstructive pulmonary disease Qualifiers: COPD type: chronic bronchitis Is this a current diagnosis for this admission?: Yes Plan: Will continues to nebulizer treatment and IV antibiotic and get the sputum culture negative the CT of the chest to rule out underlying pneumonia (2) Cough Is this a current diagnosis for this admission?: Yes Plan: Continues to cough medications continues to nebulizer treatments (3) Dementia Qualifiers: Dementia type: unspecified type Dementia behavioral disturbance: with behavioral disturbance Qualified Code(s): F03.91 - Unspecified dementia with behavioral disturbance Is this a current diagnosis for this admission?: Yes Plan: stable (4) CVA, old, hemiparesis Is this a current diagnosis for this admission?: Yes (5) Dehydration Is this a current diagnosis for this admission?: Yes Plan: start iv fluid (6) Benign prostate hyperplasia Qualifiers: Lower urinary tract symptom detail: unspecified Is this a current diagnosis for this admission?: Yes (7) CAD (coronary artery disease) Qualifiers: Coronary Disease-Associated Artery/Lesion type: unspecified vessel or lesion type Is this a current diagnosis for this admission?: Yes Plan: stable (8) Hyperlipemia Qualifiers: Hyperlipidemia type: unspecified Qualified Code(s): E78.5 - Hyperlipidemia , unspecified Is this a current diagnosis for this admission?: Yes Plan: stable (9) Hypertension Qualifiers: Hypertension type: essential hypertension Qualified Code(s): I10 - Essential (primary) hypertension Is this a current diagnosis for this admission?: Yes Plan: stable (10) Seizure disorder Is this a current diagnosis for this admission?: Yes Plan: Continues to Kera - Time Time Spent: 30 to 50 Minutes Medications reviewed and adjusted accordingly: Yes Within: Other - Inpatient Certification Medical Necessity: Need Close Monitoring Due to Risk of Patient Decompensation, Need For IV Fluids, Need for IV Antibiotics Post Hospital Care: D/C Transport Assistant Documentation - Plan Summary Plan Summary: Admit the patient in IMCU start the patient on IV fluid and IV antibiotic wait for the all the cultures discussed with the patient's family and the bedside's get the seizures precautions
--- NOTE | 2018-04-20 15:18 | RADIOLOGY REPORT (SQ) ---
EXAM DESCRIPTION: CT CHEST WITHOUT COMPLETED DATE/TIME: 04/20/2018 2:57 pm REASON FOR STUDY: cough COMPARISON: Chest x-ray 04/19/2018 CT 03/18/2016 TECHNIQUE: CT scan performed of the chest without intravenous contrast. Images reviewed with lung, soft tissue and bone windows. Reconstructed coronal and sagittal MPR images reviewed. All images st ored on PACS. All CT scanners at this facility use dose modulation, iterative reconstruction, and/or weight based d osing when appropriate to reduce radiation dose to as low as reasonably achievable (ALARA). [facility]: Dose Right [facility]: CareDose [facility]: Dose Right [facility]: Teradose 4D [facility]: [employer] RADIATION DOSE: CT Rad equipment meets quality standard of care and radiation dose reduction techniq ues were employed. CTDIvol: 12.5 mGy. DLP: 455 mGy-cm. mGy. LIMITATIONS: No technical limitations. FINDINGS: LUNGS AND PLEURA: Mild centrilobular emphysematous changes. A 3 cm solid mass abuts the p leura posteriorly on the right on image 42 series 4. A 13 mm nodule is contiguous with the larger no dule and is seen on image 52 series 4. A partially calcified pleural plaque is present on the right. There is a small left pleural effusion. HILAR AND MEDIASTINAL STRUCTURES: No identified masses or abnormal nodes. No obvious aneurysm. HEART AND VASCULAR STRUCTURES: No aneurysm. No pericardial effusion. UPPER ABDOMEN: No significant findings. Limited exam. THYROID AND OTHER SOFT TISSUES: No significant abnormality. BONES: Scoliosis. HARDWARE: Pacemaker/defibrillator. OTHER: No other significant findings. IMPRESSION: 1. Right pulmonary nodules. Recommend PET-CT. Recommend biopsy. 2. Centrilobular emphysema. 3. Small left pleural effusion. 4. Scoliosis. TECHNICAL DOCUMENTATION: JOB ID: [id number] Quality ID # [id number]: Final reports with documentation of one or more dose reduction techniques (e.g., Au tomated exposure control, adjustment of the mA and/or kV according to patient size, use of iterative reconstruction technique) 2010 [employer]- All Rights Reserved Reading location - IP/workstation name: [email or web address]
[2018-04-20] MEDS ORDERED: LEVOFLOXACIN 500 MG/D5W RTU 500 MG/100 ML RTUPB IV SCH (22:00)
[2018-04-20] MEDS: DONEPEZIL HCL 5 MG TABLET PO SCH (22:20)
[2018-04-20] MEDS: SIMVASTATIN 10 MG TABLET PO SCH (22:21)
[2018-04-21] MEDS ORDERED: FUROSEMIDE INJ/PF 40 MG/4 ML SDV IV ONE (01:45)
[2018-04-21 05:39] LABS: ABSOLUTE BASOPHILS # (AUTO) 0.1 10^3/uL (0.0-0.2); ABSOLUTE EOSINOPHILS # (AUTO) 0.1 10^3/uL (0.0-0.6); ABSOLUTE LYMPHOCYTES (AUTO) 0.7 10^3/uL (0.5-4.7); ABSOLUTE MONOCYTES (AUTO) 0.5 10^3/uL (0.1-1.4); BASOPHILS % (AUTO) 1.2 % (0-2); HEMATOCRIT 48.1 % (37.9-51.0); HEMOGLOBIN 15.6 g/dL (13.5-17.0); LYMPHOCYTES % (AUTO) 9.5 % (13-45); MEAN CORPUSCULAR HEMOGLOBIN 32.6 pg (27.0-33.4); MEAN CORPUSCULAR HGB CONC 32.5 g/dL (32.0-36.0); MEAN CORPUSCULAR VOLUME 100 fl (80-97); MONOCYTES % (AUTO) 6.6 % (3-13); PLATELET COUNT 808 10^3/uL (150-450); RED CELL DISTRIBUTION WIDTH 16.5 % (11.5-14.0); SEGMENTED NEUTROPHILS % (AUTO) 80.7 % (42-78); TOTAL CELLS COUNTED % (AUTO) 100 %; WHITE BLOOD COUNT 7.4 10^3/uL (4.0-10.5)
[2018-04-21 06:01] LABS: ALANINE AMINOTRANSFERASE 20 U/L (21-72); ALBUMIN 3.6 g/dL (3.5-5.0); ALKALINE PHOSPHATASE 65 U/L (38-126); ANION GAP 13 (5-19); ASPARTATE AMINO TRANSFERASE 25 U/L (17-59); BILIRUBIN,DIRECT 0.4 mg/dL (0.0-0.4); BILIRUBIN,TOTAL 0.5 mg/dL (0.2-1.3); BLOOD UREA NITROGEN 19 mg/dL (7-20); CALCIUM 9.5 mg/dL (8.4-10.2); CARBON DIOXIDE 23 mmol/L (22-30); CHLORIDE 110 mmol/L (98-107); GLUCOSE 90 mg/dL (75-110); POTASSIUM 4.5 mmol/L (3.6-5.0); SODIUM 146.4 mmol/L (137-145); TOTAL PROTEIN 6.7 g/dL (6.3-8.2)
--- NOTE | 2018-04-21 09:09 | PDOC PROGRESS REPORT ---
Subjective Progress Note for:: 04/21/18 Subjective:: Patient is currently doing fair Patient's CT of the chest shows a right-sided pulmonary mass Patients also have a pacemaker interrogated and the patient's currently the battery is Patient's denied any chest pain denied any shortness of the breath Reason For Visit: PNEUMONIA Physical Exam Vital Signs: Temp Pulse Resp BP Pulse Ox 98.8 F 88 18 131/78 H 98 04/21/18 04:00 04/21/18 04:00 04/21/18 04:00 04/21/18 04:00 04/21/18 04:00 Intake & Output 04/20/18 04/21/18 04/22/18 06:59 06:59 06:59 Intake Total 140 1447 Output Total 1125 Balance 140 322 Weight 60.2 kg 59 kg General appearance: PRESENT: no acute distress Head exam: PRESENT: atraumatic, normocephalic Eye exam: PRESENT: conjunctiva pink, EOMI, PERRLA. ABSENT: scleral icterus Ear exam: PRESENT: normal external ear exam Mouth exam: PRESENT: moist, tongue midline Neck exam: PRESENT: full ROM. ABSENT: carotid bruit, JVD, lymphadenopathy, thyromegaly Respiratory exam: PRESENT: clear to auscultation charley Cardiovascular exam: PRESENT: RRR. ABSENT: diastolic murmur, rubs, systolic murmur Pulses: PRESENT: normal dorsalis pedis pul, +2 pedal pulses bilateral Vascular exam: PRESENT: normal capillary refill GI/Abdominal exam: PRESENT: normal bowel sounds, soft. ABSENT: distended, guarding, mass, organolmegaly, rebound, tenderness Rectal exam: PRESENT: deferred Extremities exam: ABSENT: pedal edema Neurological exam: PRESENT: alert, awake. ABSENT: motor sensory deficit Psychiatric exam: PRESENT: appropriate affect, normal mood. ABSENT: homicidal ideation, suicidal ideation Skin exam: PRESENT: dry, intact, warm. ABSENT: cyanosis, rash Results Laboratory Results: 04/21/18 05:20 04/21/18 05:20 04/21/18 04/21/18 05:20 05:20 WBC 7.4 RBC 4.80 Hgb 15.6 Hct 48.1 MCV 100 H MCH 32.6 MCHC 32.5 RDW 16.5 H Plt Count 808 H Seg Neutrophils % 80.7 H Lymphocytes % 9.5 L Monocytes % 6.6 Eosinophils % 2.0 Basophils % 1.2 Absolute Neutrophils 6.0 Absolute Lymphocytes 0.7 Absolute Monocytes 0.5 Absolute Eosinophils 0.1 Absolute Basophils 0.1 Sodium 146.4 H Potassium 4.5 Chloride 110 H Carbon Dioxide 23 Anion Gap 13 BUN 19 Creatinine 1.07 Est GFR ( Amer) > 60 Est GFR (Non-Af Amer) > 60 Glucose 90 Calcium 9.5 Total Bilirubin 0.5 AST 25 ALT 20 L Alkaline Phosphatase 65 Total Protein 6.7 Albumin 3.6 Impressions: Chest X-Ray 04/19/18 21:35 IMPRESSION: No acute cardiopulmonary findings. Chest CT 04/20/18 00:00 IMPRESSION: 1. Right pulmonary nodules. Recommend PET-CT. Recommend biopsy. 2. Centrilobular emphysema. 3. Small left pleural effusion. 4. Scoliosis. Assessment & Plan - Diagnosis (1) Chronic obstructive pulmonary disease Qualifiers: COPD type: chronic bronchitis Is this a current diagnosis for this admission?: Yes Plan: Will continues to nebulizer treatment and IV antibiotic and get the sputum culture negative the CT of the chest to rule out underlying pneumonia (2) Cough Is this a current diagnosis for this admission?: Yes Plan: Continues to cough medications continues to nebulizer treatments (3) Dementia Qualifiers: Dementia type: unspecified type Dementia behavioral disturbance: with behavioral disturbance Qualified Code(s): F03.91 - Unspecified dementia with behavioral disturbance Is this a current diagnosis for this admission?: Yes Plan: stable (4) CVA, old, hemiparesis Is this a current diagnosis for this admission?: Yes (5) Dehydration Is this a current diagnosis for this admission?: Yes Plan: Currently all resolved (6) Benign prostate hyperplasia Qualifiers: Lower urinary tract symptom detail: unspecified Is this a current diagnosis for this admission?: Yes (7) CAD (coronary artery disease) Qualifiers: Coronary Disease-Associated Artery/Lesion type: unspecified vessel or lesion type Is this a current diagnosis for this admission?: Yes Plan: stable (8) Hyperlipemia Qualifiers: Hyperlipidemia type: unspecified Qualified Code(s): E78.5 - Hyperlipidemia , unspecified Is this a current diagnosis for this admission?: Yes Plan: stable (9) Hypertension Qualifiers: Hypertension type: essential hypertension Qualified Code(s): I10 - Essential (primary) hypertension Is this a current diagnosis for this admission?: Yes (10) Seizure disorder Is this a current diagnosis for this admission?: Yes Plan: Continues to Ayaz (11) Cardiac pacemaker Is this a current diagnosis for this admission?: Yes Plan: Currently the battery is not working consult the cardiology for further evaluations (12) Pulmonary mass Is this a current diagnosis for this admission?: Yes Plan: Consult the pulmonary for further evaluations - Time Time Spent with patient: 15-24 minutes Medications reviewed and adjusted accordingly: Yes Anticipated discharge: Other Within: Other - Inpatient Certification Medical Necessity: Need Close Monitoring Due to Risk of Patient Decompensation, Need for IV Antibiotics Post Hospital Care: D/C Oversize Load Pilot Escort Documentation - Plan Summary Plan Summary: Discussed with the patient's family regarding the patient's current conditions with all the test reports we will wait for the further evaluations per cardiology and pulmonary
[2018-04-21] MEDS: ASPIRIN 81 MG TABLET, ENT COATED PO SCH (10:12)
[2018-04-21] MEDS: AZITHROMYCIN 250 MG TABLET PO SCH (10:13)
[2018-04-21] MEDS: ACETAZOLAMIDE 250 MG TABLET PO SCH (10:13)
[2018-04-21] MEDS: ALLOPURINOL 100 MG TABLET PO SCH (10:13)
[2018-04-21] MEDS: TAMSULOSIN HCL 0.4 MG CAP.SR.24H PO SCH (10:14)
[2018-04-21] MEDS: FUROSEMIDE 20 MG TABLET PO SCH (10:14)
[2018-04-21] MEDS: LEVETIRACETAM 500 MG TABLET PO SCH ×2 (10:14→18:41)
[2018-04-21] MEDS: LANSOPRAZOLE 30 MG TAB.RAP.DR PO SCH (10:14)
[2018-04-21] MEDS: ENOXAPARIN SODIUM INJ 30 MG/0.3 ML DISP.SYRIN SUBCUT SCH (10:15)
[2018-04-21] MEDS: HYDROXYUREA 500 MG CAPSULE PO SCH (10:17)
[2018-04-21] MEDS: CEFEPIME 1 GM/D5W RTU 1 GM/50 ML RTUPB IV SCH ×2 (10:18→22:18)
--- NOTE | 2018-04-21 17:22 | PDOC CONSULTATION ---
Consultation Consult Date: 04/21/18 Attending physician:: ALANNA MONTE Consult reason:: Abnormal chest x-ray/lung mass History of Present Illness Admission Date/PCP: 04/19/18 23:58 ALANNA MONTE MD History of Present Illness: HEMANT GRIFFITH is a 87 year old male,With multiple medical problems presented to the emergency room 3 or 4 days increasing shortness of breath and a cough is productive mostly of dry efforts occasionally productive of some clear phlegm no hemoptysis PPD is negative dates unknown no history of chronic lung diseases child or adolescent admits to exposure to passive smoke as a child as well as an adult he himself has smoked at least a pack a day for the last 60 years but has not smoked in the last 20 years. 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 He has no pets no recent travel does not know a history of angina- like chest pain sleeps on 1-2 pillows occasional PND occasional nocturnal cough and intermittent episodes of edema Past Medical History Cardiac Medical History: Reports: Congestive Heart Failure, Coronary Artery Disease, Hyperlipidema, Hypertension Denies: Atrial Fibrillation, Myocardial Infarction, Peripheral Vascular Disease, Pulmonary Embolism, Heart Murmur Pulmonary Medical History: Reports: Bronchitis, Chronic Obstructive Pulmonary Disease (COPD), Pneumonia Denies: Asthma, Respiratory Failure, Sleep Apnea, Tuberculosis EENT Medical History: Reports: Cataracts Neurological Medical History: Reports: Ischemic CVA, Seizures Denies: Multiple Sclerosis Endocrine Medical History: Reports: None Denies: Obesity Renal/ Medical History: Denies: End Stage Renal Disease Malignancy Medical History: Denies: Lung Cancer GI Medical History: Reports: None, Gastroesophageal Reflux Disease Denies: Crohn's Disease, Ulcerative Colitis Musculoskeltal Medical History: Reports: Arthritis Denies: Fibromyalgia Psychiatric Medical History: Reports: Dementia, Depression - anxiety Traumatic Medical History: Reports: Traumatic Brain Injury Hematology: Denies: Sickle Cell Disease Infectious Medical History: Denies: Clostridium Difficile Past Surgical History Past Surgical History: Reports: Pacemaker Social History Information Source: Relative, [facility] Records Lives with: Family - DAUGHTER Smoking Status: Former Smoker Cigarettes Packs Per Day: 2 Number of Years Smokin Last Time Smoked: 25 Passive smoke exposure as: Both Frequency of Alcohol Use: Social Hx Recreational Drug Use: No Drugs: None Hx Prescription Drug Abuse: No Do you have pets?: No Have you had any respiratory illnesses as a child?: No Have you been exposed to any sick contacts recently?: No Have you had any recent respiratory illnesses?: No Have you travelled outside of [place] in the past 12 months?: No Family History Parental Family History Reviewed: No Children Family History Reviewed: No Sibling(s) Family History Reviewed.: No Medication/Allergy Home Medications: Allopurinol [Zyloprim 100 mg Tablet] 100 mg PO DAILY 07/18/14 Aspirin [Aspirin EC] 81 mg PO DAILY 07/18/14 Donepezil HCl [Aricept] 10 mg PO QHS 07/18/14 Furosemide [Lasix 20 mg Tablet] 20 mg PO QAMP PRN 07/18/14 Tamsulosin HCl [Flomax 0.4 mg Cap.sr] 0.4 mg PO DAILY 07/18/14 Acetazolamide [Diamox 250 mg Tab] 250 mg PO DAILY 04/19/18 Levetiracetam 1,000 mg PO Q12 04/19/18 Omeprazole 40 mg PO DAILY 04/19/18 Simvastatin 20 mg PO QHS 04/19/18 Allergies/Adverse Reactions: No Known Allergies Allergy (Unverified 12/06/11 18:45) Review of Systems ROS unobtainable: Due to mental status Physical Exam Vital Signs: Temp Pulse Resp BP Pulse Ox 98.8 F 88 18 131/78 H 98 04/21/18 04:00 04/21/18 04:00 04/21/18 04:00 04/21/18 04:00 04/21/18 04:00 Intake & Output 04/20/18 04/21/18 04/22/18 06:59 06:59 06:59 Intake Total 140 1447 Output Total 1125 Balance 140 322 Weight 60.2 kg 59 kg General appearance: PRESENT: no acute distress, cooperative, disheveled, hard of hearing Head exam: PRESENT: atraumatic, normocephalic Eye exam: PRESENT: conjunctiva pale, EOMI. ABSENT: nystagmus Mouth exam: PRESENT: dry mucosa, neck supple, tongue midline Teeth exam: PRESENT: edentulous Neck exam: ABSENT: carotid bruit, JVD, lymphadenopathy, thyromegaly, tracheal deviation, tracheostomy Respiratory exam: PRESENT: crackles, decreased breath sounds, prolonged expiratory phas, rhonchi, unlabored. ABSENT: retraction, stridor Cardiovascular exam: PRESENT: RRR, +S1, +S2 Pulses: PRESENT: normal radial pulses GI/Abdominal exam: PRESENT: hypoactive bowel sounds, soft Extremities exam: ABSENT: calf tenderness, clubbing, joint swelling Musculoskeletal exam: PRESENT: deformity, dislocation Neurological exam: PRESENT: awake, oriented to person. ABSENT: oriented to place, oriented to time Psychiatric exam: PRESENT: flat affect Skin exam: PRESENT: dry, warm Results Laboratory Results: 04/21/18 05:20 04/21/18 05:20 04/21/18 04/21/18 05:20 05:20 WBC 7.4 RBC 4.80 Hgb 15.6 Hct 48.1 MCV 100 H MCH 32.6 MCHC 32.5 RDW 16.5 H Plt Count 808 H Seg Neutrophils % 80.7 H Lymphocytes % 9.5 L Monocytes % 6.6 Eosinophils % 2.0 Basophils % 1.2 Absolute Neutrophils 6.0 Absolute Lymphocytes 0.7 Absolute Monocytes 0.5 Absolute Eosinophils 0.1 Absolute Basophils 0.1 Sodium 146.4 H Potassium 4.5 Chloride 110 H Carbon Dioxide 23 Anion Gap 13 BUN 19 Creatinine 1.07 Est GFR ( Amer) > 60 Est GFR (Non-Af Amer) > 60 Glucose 90 Calcium 9.5 Total Bilirubin 0.5 AST 25 ALT 20 L Alkaline Phosphatase 65 Total Protein 6.7 Albumin 3.6 Impressions: Chest X-Ray 04/19/18 21:35 IMPRESSION: No acute cardiopulmonary findings. Chest CT 04/20/18 00:00 IMPRESSION: 1. Right pulmonary nodules. Recommend PET-CT. Recommend biopsy. 2. Centrilobular emphysema. 3. Small left pleural effusion. 4. Scoliosis. Assessment & Plan - Diagnosis (1) CVA, old, hemiparesis Is this a current diagnosis for this admission?: Yes Plan: Appears to have expressive and possibly receptive aphasia (2) Chronic obstructive pulmonary disease Qualifiers: COPD type: chronic bronchitis Is this a current diagnosis for this admission?: Yes Plan: Generic Name Dose Route Start Last Admin Trade Name Freq PRN Reason Stop Dose Admin Albuterol/Ipratropium 3 ml 04/19/18 23:54 Duoneb 3 Ml Ampul NEB 05/19/18 23:53 [id number] PRN SHORTNESS OF BREATH Guaifenesin 200 mg 04/19/18 23:54 04/21/18 01:10 Robitussin Syrup 200 Mg/10 Ml Ud Cup PO 05/19/18 23:53 200 mg Q4HP PRN COUGH (3) Dementia Qualifiers: Dementia type: unspecified type Dementia behavioral disturbance: with behavioral disturbance Qualified Code(s): F03.91 - Unspecified dementia with behavioral disturbance Is this a current diagnosis for this admission?: Yes (4) Pulmonary mass Is this a current diagnosis for this admission?: Yes Plan: Ultimately the decision was made as the where the patient should be aggressively pursued for this 3 cm pleural-based mass his underlying conditions of dementia CVA as well as his advanced age may preclude an aggressive workup long prolonged discussion with the family and the primary care physician are necessary
[2018-04-21] MEDS: SIMVASTATIN 10 MG TABLET PO SCH (22:18)
[2018-04-21] MEDS: DONEPEZIL HCL 5 MG TABLET PO SCH (22:18)
[2018-04-22 05:10] LABS: ABSOLUTE BASOPHILS # (AUTO) 0.1 10^3/uL (0.0-0.2); ABSOLUTE EOSINOPHILS # (AUTO) 0.2 10^3/uL (0.0-0.6); ABSOLUTE MONOCYTES (AUTO) 0.5 10^3/uL (0.1-1.4); ABSOLUTE NEUT (AUTO) 5.4 10^3/uL (1.7-8.2); BASOPHILS % (AUTO) 1.3 % (0-2); HEMATOCRIT 46.5 % (37.9-51.0); HEMOGLOBIN 15.4 g/dL (13.5-17.0); LYMPHOCYTES % (AUTO) 13.8 % (13-45); MEAN CORPUSCULAR HEMOGLOBIN 33.3 pg (27.0-33.4); MEAN CORPUSCULAR HGB CONC 33.1 g/dL (32.0-36.0); MEAN CORPUSCULAR VOLUME 101 fl (80-97); MONOCYTES % (AUTO) 6.8 % (3-13); PLATELET COUNT 855 10^3/uL (150-450); RED BLOOD COUNT 4.63 10^6/uL (4.35-5.55); RED CELL DISTRIBUTION WIDTH 16.1 % (11.5-14.0); SEGMENTED NEUTROPHILS % (AUTO) 75.1 % (42-78); TOTAL CELLS COUNTED % (AUTO) 100 %; WHITE BLOOD COUNT 7.2 10^3/uL (4.0-10.5)
[2018-04-22 05:27] LABS: ALANINE AMINOTRANSFERASE 21 U/L (21-72); ALBUMIN 3.4 g/dL (3.5-5.0); ALKALINE PHOSPHATASE 63 U/L (38-126); ANION GAP 12 (5-19); ASPARTATE AMINO TRANSFERASE 23 U/L (17-59); BILIRUBIN,DIRECT 0.4 mg/dL (0.0-0.4); BILIRUBIN,TOTAL 0.6 mg/dL (0.2-1.3); BLOOD UREA NITROGEN 22 mg/dL (7-20); CALCIUM 9.3 mg/dL (8.4-10.2); CARBON DIOXIDE 23 mmol/L (22-30); CHLORIDE 109 mmol/L (98-107); GLUCOSE 80 mg/dL (75-110); POTASSIUM 5.1 mmol/L (3.6-5.0); TOTAL PROTEIN 6.2 g/dL (6.3-8.2)
[2018-04-22] MEDS: ACETAZOLAMIDE 250 MG TABLET PO SCH (10:34)
[2018-04-22] MEDS: ALLOPURINOL 100 MG TABLET PO SCH (10:36)
[2018-04-22] MEDS: FUROSEMIDE 20 MG TABLET PO SCH (10:37)
[2018-04-22] MEDS: LEVETIRACETAM 500 MG TABLET PO SCH ×2 (10:37→17:39)
[2018-04-22] MEDS: TAMSULOSIN HCL 0.4 MG CAP.SR.24H PO SCH (10:37)
[2018-04-22] MEDS: ENOXAPARIN SODIUM INJ 30 MG/0.3 ML DISP.SYRIN SUBCUT SCH (10:37)
[2018-04-22] MEDS: HYDROXYUREA 500 MG CAPSULE PO SCH (10:37)
[2018-04-22] MEDS: LANSOPRAZOLE 30 MG TAB.RAP.DR PO SCH (10:37)
[2018-04-22] MEDS: ASPIRIN 81 MG TABLET, ENT COATED PO SCH (10:37)
[2018-04-22] MEDS: CEFEPIME 1 GM/D5W RTU 1 GM/50 ML RTUPB IV SCH ×2 (10:37→21:55)
[2018-04-22] MEDS: AZITHROMYCIN 250 MG TABLET PO SCH (10:37)
--- NOTE | 2018-04-22 10:53 | PDOC PROGRESS REPORT ---
Subjective Progress Note for:: 04/22/18 Subjective:: Patient is currently doing fair Patient's CT of the chest shows a right-sided pulmonary mass Patients also have a pacemaker interrogated and the patient's currently the battery is Patient's denied any chest pain denied any shortness of the breath Reason For Visit: PNEUMONIA Physical Exam Vital Signs: Temp Pulse Resp BP Pulse Ox 97.4 F 59 L 20 109/70 100 04/22/18 08:01 04/22/18 08:01 04/22/18 08:01 04/22/18 08:01 04/22/18 08:01 Intake & Output 04/21/18 04/22/18 04/23/18 06:59 06:59 06:59 Intake Total 1447 605 Output Total 1125 375 Balance 322 230 Weight 59 kg 63.5 kg General appearance: PRESENT: no acute distress, well-developed, well-nourished Head exam: PRESENT: atraumatic, normocephalic Eye exam: PRESENT: conjunctiva pink, EOMI, PERRLA. ABSENT: scleral icterus Ear exam: PRESENT: normal external ear exam Mouth exam: PRESENT: moist, tongue midline Neck exam: PRESENT: full ROM. ABSENT: carotid bruit, JVD, lymphadenopathy, thyromegaly Respiratory exam: PRESENT: clear to auscultation charley Cardiovascular exam: PRESENT: RRR. ABSENT: diastolic murmur, rubs, systolic murmur Pulses: PRESENT: normal dorsalis pedis pul, +2 pedal pulses bilateral Vascular exam: PRESENT: normal capillary refill GI/Abdominal exam: PRESENT: normal bowel sounds, soft. ABSENT: distended, guarding, mass, organolmegaly, rebound, tenderness Rectal exam: PRESENT: deferred Extremities exam: ABSENT: pedal edema Neurological exam: PRESENT: alert, awake, oriented to person. ABSENT: motor sensory deficit Psychiatric exam: PRESENT: appropriate affect, normal mood. ABSENT: homicidal ideation, suicidal ideation Skin exam: PRESENT: dry, intact, warm. ABSENT: cyanosis, rash Results Laboratory Results: 04/22/18 04:47 04/22/18 04:47 04/22/18 04/22/18 04:47 04:47 WBC 7.2 RBC 4.63 Hgb 15.4 Hct 46.5 MCV 101 H MCH 33.3 MCHC 33.1 RDW 16.1 H Plt Count 855 H Seg Neutrophils % 75.1 Lymphocytes % 13.8 Monocytes % 6.8 Eosinophils % 3.0 Basophils % 1.3 Absolute Neutrophils 5.4 Absolute Lymphocytes 1.0 Absolute Monocytes 0.5 Absolute Eosinophils 0.2 Absolute Basophils 0.1 Sodium 144.0 Potassium 5.1 H Chloride 109 H Carbon Dioxide 23 Anion Gap 12 BUN 22 H Creatinine 1.11 Est GFR ( Amer) > 60 Est GFR (Non-Af Amer) > 60 Glucose 80 Calcium 9.3 Total Bilirubin 0.6 AST 23 ALT 21 Alkaline Phosphatase 63 Total Protein 6.2 L Albumin 3.4 L Impressions: Chest X-Ray 04/19/18 21:35 IMPRESSION: No acute cardiopulmonary findings. Chest CT 04/20/18 00:00 IMPRESSION: 1. Right pulmonary nodules. Recommend PET-CT. Recommend biopsy. 2. Centrilobular emphysema. 3. Small left pleural effusion. 4. Scoliosis. Assessment & Plan - Diagnosis (1) Chronic obstructive pulmonary disease Qualifiers: COPD type: chronic bronchitis Is this a current diagnosis for this admission?: Yes Plan: Will continues to nebulizer treatment and IV antibiotic and get the sputum culture negative the CT of the chest to rule out underlying pneumonia (2) Cough Is this a current diagnosis for this admission?: Yes Plan: Continues to cough medications continues to nebulizer treatments (3) Dementia Qualifiers: Dementia type: unspecified type Dementia behavioral disturbance: with behavioral disturbance Qualified Code(s): F03.91 - Unspecified dementia with behavioral disturbance Is this a current diagnosis for this admission?: Yes Plan: stable (4) CVA, old, hemiparesis Is this a current diagnosis for this admission?: Yes (5) Dehydration Is this a current diagnosis for this admission?: Yes Plan: Currently all resolved (6) Benign prostate hyperplasia Qualifiers: Lower urinary tract symptom detail: unspecified Is this a current diagnosis for this admission?: Yes (7) CAD (coronary artery disease) Qualifiers: Coronary Disease-Associated Artery/Lesion type: unspecified vessel or lesion type Is this a current diagnosis for this admission?: Yes Plan: stable (8) Hyperlipemia Qualifiers: Hyperlipidemia type: unspecified Qualified Code(s): E78.5 - Hyperlipidemia , unspecified Is this a current diagnosis for this admission?: Yes Plan: stable (9) Hypertension Qualifiers: Hypertension type: essential hypertension Qualified Code(s): I10 - Essential (primary) hypertension Is this a current diagnosis for this admission?: Yes Plan: stable (10) Seizure disorder Is this a current diagnosis for this admission?: Yes Plan: Continues to Ayaz (11) Cardiac pacemaker Is this a current diagnosis for this admission?: Yes Plan: Very extensive discussions with the daughter regarding the patient's pacemaker battery is not working and the family decided to not go for changing the pacemaker battery at this point discussed with myself in the Dr. Gongora with the family and Dr. Nicole evaluate the patient as an outpatient (12) Pulmonary mass Is this a current diagnosis for this admission?: Yes Plan: Discussed with the daughter about the pulmonary mass and discussed with the Dr. Dillon and patient see actually outpatient Dr. Han for thrombocytosis and the family will discuss with Dr. Han as outpatients (13) Urinary tract infection Qualifiers: Urinary tract infection type: site unspecified Is this a current diagnosis for this admission?: Yes Plan: continue IV antibiotic - Time Time Spent with patient: 15-24 minutes Medications reviewed and adjusted accordingly: Yes Anticipated discharge: Home Within: within 24 hours - Inpatient Certification Medical Necessity: Need Close Monitoring Due to Risk of Patient Decompensation, Need for IV Antibiotics
[2018-04-22] MEDS: DONEPEZIL HCL 5 MG TABLET PO SCH (21:52)
[2018-04-22] MEDS: SIMVASTATIN 10 MG TABLET PO SCH (21:53)
[2018-04-23] MEDS: AZITHROMYCIN 250 MG TABLET PO SCH (09:29)
[2018-04-23] MEDS: ASPIRIN 81 MG TABLET, ENT COATED PO SCH (09:29)
[2018-04-23] MEDS: LANSOPRAZOLE 30 MG TAB.RAP.DR PO SCH (09:29)
[2018-04-23] MEDS: TAMSULOSIN HCL 0.4 MG CAP.SR.24H PO SCH (09:29)
[2018-04-23] MEDS: ALLOPURINOL 100 MG TABLET PO SCH (09:29)
[2018-04-23] MEDS: LEVETIRACETAM 500 MG TABLET PO SCH (09:29)
[2018-04-23] MEDS: FUROSEMIDE 20 MG TABLET PO SCH (09:29)
[2018-04-23] MEDS: CEFEPIME 1 GM/D5W RTU 1 GM/50 ML RTUPB IV SCH (09:29)
[2018-04-23] MEDS: HYDROXYUREA 500 MG CAPSULE PO SCH (09:30)
[2018-04-23] MEDS: ENOXAPARIN SODIUM INJ 30 MG/0.3 ML DISP.SYRIN SUBCUT SCH (09:30)
[2018-04-23] MEDS: ACETAZOLAMIDE 250 MG TABLET PO SCH (09:30)
--- NOTE | 2018-04-23 10:25 | PDOC DISCHARGE SUMMARY ---
General - Admit/Disc Date/PCP Admission Date/Primary Care Provider: 04/19/18 23:58 ALANNA MONTE MD Discharge Date: 04/23/18 - Discharge Diagnosis (1) Chronic obstructive pulmonary disease Is this a current diagnosis for this admission?: Yes Summary: Currently all stable (2) Cough Is this a current diagnosis for this admission?: Yes Summary: Currently all resolving (3) Dementia Is this a current diagnosis for this admission?: Yes Summary: Mr. current medication (4) CVA, old, hemiparesis Is this a current diagnosis for this admission?: Yes Summary: Continues to physical therapy at home (5) Dehydration Is this a current diagnosis for this admission?: Yes Summary: Currently all resolved (6) Benign prostate hyperplasia Is this a current diagnosis for this admission?: Yes (7) CAD (coronary artery disease) Is this a current diagnosis for this admission?: Yes Summary: Currently all stable (8) Hyperlipemia Is this a current diagnosis for this admission?: Yes Summary: stable (9) Hypertension Is this a current diagnosis for this admission?: Yes Summary: stable (10) Seizure disorder Is this a current diagnosis for this admission?: Yes Summary: cont the [facility] (11) Cardiac pacemaker Is this a current diagnosis for this admission?: Yes Summary: Per discussed with the cardiology the patient's pacemaker battery is not working and discussed with the family and family will decide later on with the Dr. Gongora as outpatients for further need any change the battery are not (12) Pulmonary mass Is this a current diagnosis for this admission?: Yes Summary: Currently see outpatients Dr. Han for thrombocytosis and the family is going to make an appointment to see her for this pulmonary mass (13) Urinary tract infection Is this a current diagnosis for this admission?: Yes Summary: Continues to Keflex - Additional Information Discharge Diet: As Tolerated Discharge Activity: Activity As Tolerated Prescriptions: Cephalexin Monohydrate [Keflex 500 mg Capsule] 500 mg PO TID #21 capsule Furosemide [Lasix 20 mg Tablet] 20 mg PO DAILY #30 tablet Hydroxyurea [Hydrea 500 mg Capsule] 500 mg PO DAILY #30 capsule Home Medications: Furosemide [Lasix 20 mg Tablet] 20 mg PO QAMP PRN 07/18/14 Acetazolamide [Diamox 250 mg Tab] 250 mg PO DAILY 3 Days #30 04/23/18 Allopurinol [Zyloprim 100 mg Tablet] 100 mg PO DAILY 3 Days #30 04/23/18 Aspirin [Aspirin EC] 81 mg PO DAILY 3 Days #30 04/23/18 Cephalexin Monohydrate [Keflex 500 mg Capsule] 500 mg PO TID #21 capsule Donepezil HCl [Aricept] 10 mg PO QHS 3 Days #30 04/23/18 Furosemide [Lasix 20 mg Tablet] 20 mg PO DAILY #30 tablet 04/23/18 Hydroxyurea [Hydrea 500 mg Capsule] 500 mg PO DAILY #30 capsule 04/23/18 Levetiracetam 1,000 mg PO Q12 3 Days #60 04/23/18 Omeprazole 40 mg PO DAILY 3 Days #30 04/23/18 Simvastatin 20 mg PO QHS 3 Days #30 04/23/18 Tamsulosin HCl [Flomax 0.4 mg Cap.sr] 0.4 mg PO DAILY 3 Days #30 04/23/18 History of Present Illness History of Present Illness: HEMANT GRIFFITH is a 87 year old male This is a 87-year-old male with a significant history of the dementia with the history of the stroke and chronic sinus problem with the cough currently live with the family brought to the emergency department because patients not feeling well and increasing more cough and congestion'sIn the emergency department initial workup was all stable and ER physician thought patients may have labile dehydration and possible underlying pneumonia and decided to admit in the hospital for further evaluations Patients receive the IV antibiotic and IV fluid when I saw the patient on the floor with the family on a bedside patient's feeling much better still with some mild cough and congestion's Patient as usual underlying significant dementia but alert awake's patient's speech is always slurred denied any other symptoms Hospital Course Hospital Course: This is a 87-year-old male with a significant history of dementia and cerebrovascular accident and multiple other comorbidity brought to the emergency department because of the patient's increasing the cough and altered mental status patients initially admitting in the hospital for possible questionable pneumonia and UTI patients treated with IV antibiotic and IV fluid and patient's response very well Also had a pacemakers which integrated and the battery is not working a Dr. Gongora was consulted and suggest the family to decide with the needs to be changed the battery are not family will discuss later as outpatients Dr. Gongora Underwent for the CT of the chest. Pulmonary nodules and mass and Dr. Dillon was consulted because of the advanced age with dementia Santana suggest most likely conservative management and discussed with the family to discuss the Dr. Han which patient see for the thrombocytosis in the next week with candidate for any treatments or any biopsy Since otherwise remained stable other medical problem is stable in patients at this point family desire to take her back home Physical Exam Vital Signs: Temp Pulse Resp BP Pulse Ox 97.4 F 61 16 104/61 98 04/23/18 07:30 04/23/18 07:30 04/23/18 07:30 04/23/18 07:30 04/23/18 07:30 Intake & Output 04/22/18 04/23/18 04/24/18 06:59 06:59 06:59 Intake Total 605 915 Output Total 375 Balance 230 915 Weight 63.5 kg 61.7 kg Physical Exam: dementia but alert awake General appearance: PRESENT: no acute distress, well-developed, well-nourished Head exam: PRESENT: atraumatic, normocephalic Eye exam: PRESENT: conjunctiva pink, EOMI, PERRLA. ABSENT: scleral icterus Ear exam: PRESENT: normal external ear exam Mouth exam: PRESENT: moist, tongue midline Neck exam: PRESENT: full ROM. ABSENT: carotid bruit, JVD, lymphadenopathy, thyromegaly Respiratory exam: PRESENT: clear to auscultation charley Cardiovascular exam: PRESENT: RRR. ABSENT: diastolic murmur, rubs, systolic murmur Pulses: PRESENT: normal dorsalis pedis pul, +2 pedal pulses bilateral Vascular exam: PRESENT: normal capillary refill GI/Abdominal exam: PRESENT: normal bowel sounds, soft. ABSENT: distended, guarding, mass, organolmegaly, rebound, tenderness Rectal exam: PRESENT: deferred Neurological exam: PRESENT: alert, awake, oriented to person. ABSENT: motor sensory deficit Psychiatric exam: PRESENT: appropriate affect, normal mood. ABSENT: homicidal ideation, suicidal ideation Skin exam: PRESENT: dry, intact, warm. ABSENT: cyanosis, rash Results Laboratory Results: 04/22/18 04:47 04/22/18 04:47 Impressions: Chest X-Ray 04/19/18 21:35 IMPRESSION: No acute cardiopulmonary findings. Chest CT 04/20/18 00:00 IMPRESSION: 1. Right pulmonary nodules. Recommend PET-CT. Recommend biopsy. 2. Centrilobular emphysema. 3. Small left pleural effusion. 4. Scoliosis. Qualifiers - * PATIENT BEING DISCHARGED WITH ANY OF THE FOLLOWING DIAGNOSIS: No VTE patient discharged on overlapping Therapy?: Yes Plan Time Spent: Greater than 30 Minutes - Discharge home with the stable conditions follow outpatients Dr. Han the oncology and outpatient cardiology
[2018-04-23 13:07] VITALS: BP 107/66
== END 2018-04-23 13:46 | disposition home health service (06) | DRG 641 ==
LOC: ER 21:20 → OBSVTOIN 23:58 → EH 23:58 → 3S 04-20 02:30
PROVIDERS: ADMIT Family Medicine; ATTEND Family Medicine
PROC: 3E0F73Z Introduction of Anti-inflammatory into Respiratory Tract, Via Natural or Artificial Opening (ICD-10-PCS; principal; 2018-04-20)
DX: E86.0 Dehydration (principal); N39.0 Urinary tract infection, site not specified; T82.111A Breakdown (mechanical) of cardiac pulse generator (battery), initial encounter; I69.359 Hemiplegia and hemiparesis following cerebral infarction affecting unspecified side; E87.5 Hyperkalemia; R91.8 Other nonspecific abnormal finding of lung field; F03.90 Unspecified dementia, unspecified severity, without behavioral disturbance, psychotic disturbance, mood disturbance, and anxiety; I69.320 Aphasia following cerebral infarction; I11.0 Hypertensive heart disease with heart failure; I50.9 Heart failure, unspecified; E78.5 Hyperlipidemia, unspecified; I25.10 Atherosclerotic heart disease of native coronary artery without angina pectoris; J44.9 Chronic obstructive pulmonary disease, unspecified; K21.9 Gastro-esophageal reflux disease without esophagitis; M19.90 Unspecified osteoarthritis, unspecified site; F41.9 Anxiety disorder, unspecified; N40.0 Benign prostatic hyperplasia without lower urinary tract symptoms; G40.909 Epilepsy, unspecified, not intractable, without status epilepticus; D47.3 Essential (hemorrhagic) thrombocythemia; J32.9 Chronic sinusitis, unspecified; Z87.891 Personal history of nicotine dependence; Z79.899 Other long term (current) drug therapy
CPT/HCPCS: 36415; 71045; 71250; 80053; 81001; 82553; 83605; 83880; 84484; 85025; 87040; 87086; 87088; 87186; 93005; 93010; 96365; 99285; J0692; J1650; J1940; J1956; J3490; J7030

== ENCOUNTER → 2018-05-01 | Outpatient (CLI) | payer OTHER, MEDICARE ==
--- NOTE | 2018-05-01 14:45 | RADIOLOGY REPORT (SQ) ---
EXAM DESCRIPTION: CHEST PA/LATERAL COMPLETED DATE/TIME: 05/01/2018 12:05 pm REASON FOR STUDY: CHRONIC OBSTRUCTIVE PULMONARY DISEASE, UNSPECIFIED COMPARISON: 04/19/2018. EXAM PARAMETERS: NUMBER OF VIEWS: two views TECHNIQUE: Digital Frontal and Lateral radiographic views of the chest acquired. RADIATION DOSE: NA LIMITATIONS: none FINDINGS: LUNGS AND PLEURA: The patient's CT examination dated 04/20/2018 demonstrates right pulmonar y nodules. Hyperinflation of the lungs and flattening of the diaphragms, findings suggest COPD. No acute pulmonary consolidation. No pneumothorax or pleural effusion. MEDIASTINUM AND HILAR STRUCTURES: No masses or contour abnormalities. HEART AND VASCULAR STRUCTURES: Stable appearance. BONES: No acute findings. HARDWARE: Cardiac pacemaker/ defibrillator, unchanged finding. OTHER: No other significant finding. IMPRESSION: 1 No significant interval changes since the prior examination dated 04/19/2018. No acute findings. TECHNICAL DOCUMENTATION: JOB ID: [id number] [employer]- All Rights Reserved Reading location - IP/workstation name: [email or web address]
== END ==
LOC: OD 11:49
PROVIDERS: ATTEND Family Medicine
DX: J44.9 Chronic obstructive pulmonary disease, unspecified (principal)
CPT/HCPCS: 71046

== ENCOUNTER → 2018-05-14 | Outpatient (CLI) | payer MEDICARE, OTHER ==
--- NOTE | 2018-05-15 09:23 | RADIOLOGY REPORT (SQ) ---
EXAM DESCRIPTION: PET CT SKULL/THIGH COMPLETED DATE/TIME: 05/14/2018 7:25 pm REASON FOR STUDY: LUNG NODULE R91.8 OTHER NONSPECIFIC ABNORMAL FINDING OF LUNG FIELD COMPARISON: Chest CT dated 04/20/2018. RADIONUCLIDE AND DOSE: 10.0 mCi F18 FDG The route of agent administration: Intravenous FASTING BLOOD SUGAR: 86 mg/dl CONTRAST TYPE AND DOSE: No CT contrast given. TECHNIQUE: Blood glucose level was verified. Above dose of FDG was injected intravenously. 2-D seg mented attenuation correction images were obtained from the base of the skull to the midthighs. Nonc ontrast CT images were obtained for attenuation correction and fusion with emission images. CT image s were performed without oral or intravenous contrast and are not sensitive for parenchymal lesions. A series of overlapping emission PET images were obtained. Images reviewed and manipulated at [facility] work [facility] by the radiologist. Images stored on PACS. LIMITATIONS: None. FINDINGS: HEAD AND NECK: No areas of abnormal metabolic activity in the soft tissues of the head and neck. CHEST: No areas of abnormal metabolic activity in the chest. The previously seen oval mass in the rig ht lung has decreased in size. Current measurement is 0.6 by 2 cm. No abnormal activity on PET imag ing. This mass is near the major fissure and could represent fluid and/or pleural thickening along t he fissure. ABDOMEN AND PELVIS: No areas of abnormal metabolic activity in the abdomen or pelvis. Expected physi ologic activity is present in the genitourinary system and bowel. PROXIMAL LOWER EXTREMITIES: No areas of abnormal metabolic activity in the soft tissues of the lower extremities. BONES: No abnormal metabolic activity in the visualized skeleton. ADDITIONAL CT FINDINGS: Right inguinal hernia containing a loop of adjacent small bowel. No bowel ob struction. Degenerative changes in the spine. OTHER: No other significant findings. Background blood pool activity mean SUV 1.53. Background live r activity mean SUV 2.01. IMPRESSION: 1. THE PREVIOUSLY SEEN OVAL MASS IN THE RIGHT LUNG HAS DECREASED IN SIZE. THERE IS NO ABNORMAL METAB OLIC ACTIVITY. THIS MASS IS ADJACENT TO THE MAJOR FISSURE AND COULD BE DUE TO FLUID OR PLEURAL THICK ENING ALONG THE FISSURE. WOULD RECOMMEND FOLLOW-UP CT OF THE CHEST IN 3 MONTHS TO RE-EVALUATE. 2. REMAINDER OF THE PET SCAN IS OTHERWISE UNREMARKABLE. OTHER CT FINDINGS ABOVE. TECHNICAL DOCUMENTATION: JOB ID: [id number] [employer]- All Rights Reserved Reading location - IP/workstation name: [email or web address]
== END ==
LOC: RAD 16:46
PROVIDERS: ATTEND Internal Medicine Medical Oncology
DX: R91.8 Other nonspecific abnormal finding of lung field (principal)
CPT/HCPCS: 78815; A9552

== ENCOUNTER 2018-07-19 11:35 | Inpatient (IN) | payer MEDICARE, OTHER ==
[2018-07-19] MEDS ORDERED: NORMAL SALINE 500 ML IV ONE (11:58)
--- NOTE | 2018-07-19 11:58 | ER Document Report ---
ED General - General Mode of Arrival: Ambulatory Information source: Patient TRAVEL OUTSIDE OF THE [place] IN LAST 30 DAYS: No <NEW ARIZMENDI - Last Filed: 07/20/18 19:45> <JEREMY NAJERA - Last Filed: 07/20/18 22:00> - General Chief Complaint: Fall Stated Complaint: FALL/RIGHT HIP PAIN Time Seen by Provider: 07/19/18 11:47 Notes: 87-year-old male who presents to the emergency department today with complaints of increasing number of falls, weakness, and slight confusion. Family member at bedside states the patient lives with his and has a nighttime aide that comes to help. Family member reports that the patient has had difficulty walking, increasing over the last week or so. Family member states that the patient complained of right hip pain the last 2-3 days. When the nighttime aide arrived to the house the patient was found on the floor beside his bed as if he had fallen out of bed. Family member states the patient has had a slight cough but denies any fevers. (NEW ARIZMENDI) - Related Data Allergies/Adverse Reactions: No Known Allergies Allergy (Unverified 12/06/11 18:45) Past Medical History - General Information source: Relative, [facility] Records - Social History Smoking Status: Former Smoker Cigarette use (# per day): No Frequency of alcohol use: None Drug Abuse: None Lives with: Family Family History: Reviewed & Not Pertinent - Past Medical History Cardiac Medical History: Reports: Hx Congestive Heart Failure, Hx Coronary Artery Disease, Hx Hypercholesterolemia, Hx Hypertension Pulmonary Medical History: Reports: Hx Bronchitis, Hx COPD, Hx Pneumonia Neurological Medical History: Reports: Hx Cerebrovascular Accident - x 2, Hx Seizures Renal/ Medical History: Reports: Hx Benign Prostatic Hyperplasia GI Medical History: Reports: Hx Gastroesophageal Reflux Disease Musculoskeletal Medical History: Reports Hx Arthritis Psychiatric Medical History: Reports: Hx Dementia, Hx Depression - anxiety Traumatic Medical History: Reports: Hx Traumatic Brain Injury Past Surgical History: Reports: Hx Cardiac Surgery - pacemaker dfib placed, Hx Pacemaker - Immunizations Hx Diphtheria, Pertussis, Tetanus Vaccination: Yes - unk Hx Pneumococcal Vaccination: 10/17/08 <NEW ARIZMENDI - Last Filed: 07/20/18 19:45> Review of Systems - Review of Systems -: Yes ROS unobtainable due to patient's medical condition <NEW ARIZMENDI - Last Filed: 07/20/18 19:45> Physical Exam <NEW ARIZMENDI - Last Filed: 07/20/18 19:45> <JEREMY NAJERA - Last Filed: 07/20/18 22:00> - Vital signs Vitals: Pulse Ox 98 07/19/18 12:02 - Notes Notes: Physical Exam: General: Alert, appears well. HEENT: Normocephalic. Hematoma over the parietal temporal region. PERRL. Extraocular movements intact. Oropharynx clear. Neck: Supple. Non-tender. Respiratory: No respiratory distress. Wheezing bilaterally. Cardiovascular: Regular rate and rhythm. Abdominal: Normal Inspection. Non-tender. No distension. Normal Bowel Sounds. Back: Non-tender. No deformity or step off. Extremities: Moves all four extremities. Upper extremities: Right upper extremity contracture at baseline Lower extremities: Trace pitting edema bilaterally. Normal ROM. Neurological: Confused according to family member at bedside. Does not answer questions, follows some commands. Psychological: Unable to assess Skin: Warm. Dry. Normal color. (NEW ARIZMENDI) Course - Laboratory Result Diagrams: 07/20/18 04:54 07/20/18 04:54 <NEW ARIZMENDI - Last Filed: 07/20/18 19:45> - Laboratory Result Diagrams: 07/20/18 04:54 07/20/18 04:54 - Diagnostic Test Radiology reviewed: Reports reviewed <JEREMY NAJERA - Last Filed: 07/20/18 22:00> - Re-evaluation Re-evalutation: 07/19/18 15:07 Patient shows clinical signs of dehydration with brains change in mental status with no metabolic electrolyte or radiographic findings concerning findings. Discussed case with Dr. Carreno patient be admitted for acute encephalopathy and dehydration. Maintenance fluids started in the emergency department (JEREMY NAJERA) - Vital Signs Vital signs: Temp Pulse Resp BP Pulse Ox 97.5 F 92 16 131/79 H 96 07/20/18 19:40 07/20/18 20:03 07/20/18 20:03 07/20/18 19:40 07/20/18 20:03 - Laboratory Laboratory results interpreted by me: 07/19/18 07/19/18 07/19/18 12:21 12:21 12:21 MCV 100 H RDW 16.1 H Plt Count 710 H Seg Neutrophils % 78.6 H Lymphocytes % 8.4 L Chloride 109 H BUN 23 H Creatinine 1.39 H Est GFR ( Amer) 58 L Est GFR (Non-Af Amer) 48 L Direct Bilirubin 0.5 H Ammonia < 8.7 L TSH Urine Urobilinogen Urine Ascorbic Acid 07/19/18 07/19/18 12:21 12:21 MCV RDW Plt Count Seg Neutrophils % Lymphocytes % Chloride BUN Creatinine Est GFR ( Amer) Est GFR (Non-Af Amer) Direct Bilirubin Ammonia TSH 5.00 H Urine Urobilinogen 4.0 H Urine Ascorbic Acid 20 H Discharge <NEW ARIZMENDI - Last Filed: 07/20/18 19:45> - Discharge Admitting Provider: [facility] Unit Admitted: Medical Floor <JEREMY NAJERA - Last Filed: 07/20/18 22:00> - Discharge Clinical Impression: Acute encephalopathy, Dehydration Condition: Fair Disposition: ADMITTED OBSERVATION Scribe Attestation: 07/20/18 22:00 I personally performed the services described in the documentation, reviewed and edited the documentation which was dictated to the scribe in my presence, and it accurately records my words and actions. (JEREMY NAJERA) Scribe Documentation - Scribe Written by Huang:: Huang Collazo, 07/20/20181951 acting as scribe for :: Stepan <NEW ARIZMENDI - Last Filed: 07/20/18 19:45>
[2018-07-19 12:39] LABS: ABSOLUTE BASOPHILS # (AUTO) 0.1 10^3/uL (0.0-0.2); ABSOLUTE EOSINOPHILS # (AUTO) 0.1 10^3/uL (0.0-0.6); ABSOLUTE LYMPHOCYTES (AUTO) 0.6 10^3/uL (0.5-4.7); ABSOLUTE MONOCYTES (AUTO) 0.7 10^3/uL (0.1-1.4); ABSOLUTE NEUT (AUTO) 5.3 10^3/uL (1.7-8.2); BASOPHILS % (AUTO) 1.2 % (0-2); EOSINOPHILS % (AUTO) 1.8 % (0-6); HEMATOCRIT 50.6 % (37.9-51.0); HEMOGLOBIN 16.5 g/dL (13.5-17.0); LYMPHOCYTES % (AUTO) 8.4 % (13-45); MEAN CORPUSCULAR HEMOGLOBIN 32.6 pg (27.0-33.4); MEAN CORPUSCULAR HGB CONC 32.5 g/dL (32.0-36.0); MEAN CORPUSCULAR VOLUME 100 fl (80-97); PLATELET COUNT 710 10^3/uL (150-450); RED BLOOD COUNT 5.05 10^6/uL (4.35-5.55); RED CELL DISTRIBUTION WIDTH 16.1 % (11.5-14.0); SEGMENTED NEUTROPHILS % (AUTO) 78.6 % (42-78); TOTAL CELLS COUNTED % (AUTO) 100 %; WHITE BLOOD COUNT 6.7 10^3/uL (4.0-10.5)
[2018-07-19 12:53] LABS: ALANINE AMINOTRANSFERASE 23 U/L (21-72); ALBUMIN 3.9 g/dL (3.5-5.0); ALKALINE PHOSPHATASE 65 U/L (38-126); ANION GAP 8 (5-19); ASPARTATE AMINO TRANSFERASE 30 U/L (17-59); BILIRUBIN,DIRECT 0.5 mg/dL (0.0-0.4); BILIRUBIN,TOTAL 0.6 mg/dL (0.2-1.3); BLOOD UREA NITROGEN 23 mg/dL (7-20); CALCIUM 9.5 mg/dL (8.4-10.2); CARBON DIOXIDE 25 mmol/L (22-30); CHLORIDE 109 mmol/L (98-107); GLUCOSE 88 mg/dL (75-110); POTASSIUM 4.5 mmol/L (3.6-5.0); SODIUM 141.8 mmol/L (137-145); TOTAL PROTEIN 6.9 g/dL (6.3-8.2)
--- NOTE | 2018-07-19 13:13 | RADIOLOGY REPORT (SQ) ---
EXAM DESCRIPTION: CT HEAD WITHOUT COMPLETED DATE/TIME: 07/19/2018 1:02 pm REASON FOR STUDY: ams COMPARISON: 05/20/2016 TECHNIQUE: Axial images acquired through the brain without intravenous contrast. Images reviewed wi th bone, brain and subdural windows. Additional sagittal and coronal reconstructions were generated. Images stored on PACS. All CT scanners at this facility use dose modulation, iterative reconstruction, and/or weight based d osing when appropriate to reduce radiation dose to as low as reasonably achievable (ALARA). [facility]: Dose Right [facility]: CareDose [facility]: Dose Right [facility]: Teradose 4D [facility]: Smart [employer] RADIATION DOSE: CT Rad equipment meets quality standard of care and radiation dose reduction techniq ues were employed. CTDIvol: 53.2 mGy. DLP: 991 mGy-cm.mGy. LIMITATIONS: None. FINDINGS: VENTRICLES: Prominent. 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 No masses. No hemorrhage. No midline shift. Ar eas of low density in the white matter most likely due to chronic micro-vascular ischemic change. No evidence for acute infarction. CEREBELLUM: No masses. No hemorrhage. No alteration of density. No evidence for acute infarction. EXTRAAXIAL SPACES: Age-related involutional change. No fluid collections. No masses. ORBITS AND GLOBE: No intra- or extraconal masses. Normal contour of globe without masses. CALVARIUM: No fracture. PARANASAL SINUSES: No fluid or mucosal thickening. SOFT TISSUES: No mass or hematoma. OTHER: No other significant finding. IMPRESSION: Chronic ischemic changes. EVIDENCE OF ACUTE STROKE: NO. TECHNICAL DOCUMENTATION: JOB ID: [id number] Quality ID # [id number]: Final reports with documentation of one or more dose reduction techniques (e.g., Au tomated exposure control, adjustment of the mA and/or kV according to patient size, use of iterative reconstruction technique) 2010 [employer]- All Rights Reserved Reading location - IP/workstation name: [email or web address]
--- NOTE | 2018-07-19 13:43 | RADIOLOGY REPORT (SQ) ---
EXAM DESCRIPTION: HIP BILATERAL COMPLETED DATE/TIME: 07/19/2018 1:23 pm REASON FOR STUDY: ams COMPARISON: None. NUMBER OF VIEWS: Two views. TECHNIQUE: AP pelvis and additional frog-leg view of the right and left hip. LIMITATIONS: None. FINDINGS: MINERALIZATION: Normal. RIGHT HIP: No fracture or dislocation. Joint space well maintained. No worrisome bone lesions. LEFT HIP: No fracture or dislocation. Joint space well maintained. No worrisome bone lesions. PUBIS AND ISCHIUM: No fracture. PELVIS: No fracture. Mild bilateral SI joint sclerosis SACRUM: No fracture or dislocation. No worrisome bone lesions. LOWER LUMBAR SPINE: Disc space narrowing at L4-5 and L5-S1. SOFT TISSUES: Calcified pelvic phleboliths OTHER: No other significant finding. IMPRESSION: Bilateral SI joint sclerosis No acute fracture or malalignment of the hips or pelvis TECHNICAL DOCUMENTATION: JOB ID: [id number] [employer]- All Rights Reserved Reading location - IP/workstation name: [email or web address]
--- NOTE | 2018-07-19 13:45 | RADIOLOGY REPORT (SQ) ---
EXAM DESCRIPTION: CHEST SINGLE VIEW COMPLETED DATE/TIME: 07/19/2018 1:23 pm REASON FOR STUDY: ams COMPARISON: Chest films 05/01/2018, 09/13/2017 CT chest 04/20/2018 PET-CT 05/14/2018 EXAM PARAMETERS: NUMBER OF VIEWS: One view. TECHNIQUE: Single frontal radiographic view of the chest acquired. RADIATION DOSE: NA LIMITATIONS: None. FINDINGS: LUNGS AND PLEURA: No acute infiltrates. No pleural effusion or pneumothorax. MEDIASTINUM AND HILAR STRUCTURES: No masses. Contour normal. HEART AND VASCULAR STRUCTURES: Stable borderline cardiomegaly BONES: No acute findings. HARDWARE: Left-sided pacemaker/defibrillator unchanged OTHER: No other significant finding. IMPRESSION: NO ACUTE RADIOGRAPHIC FINDING IN THE CHEST. TECHNICAL DOCUMENTATION: JOB ID: [id number] [employer]- All Rights Reserved Reading location - IP/workstation name: [email or web address]
--- NOTE | 2018-07-19 13:48 | RADIOLOGY REPORT (SQ) ---
EXAM DESCRIPTION: KNEE RIGHT 4 VIEWS COMPLETED DATE/TIME: 07/19/2018 1:23 pm REASON FOR STUDY: FALL, ABRASIONS COMPARISON: None. NUMBER OF VIEWS: Four views. TECHNIQUE: AP, lateral, and both oblique radiographic images acquired of the right knee. LIMITATIONS: Limited exposure, AP view FINDINGS: MINERALIZATION: Normal. BONES: No acute fracture or dislocation. No worrisome bone lesions. JOINT: No effusion. SOFT TISSUES: No soft tissue swelling. No radio-opaque foreign body. OTHER: Popliteal artery calcifications are present IMPRESSION: No acute fracture. No knee joint effusion. No radiopaque foreign body in the soft tiss ues TECHNICAL DOCUMENTATION: JOB ID: [id number] [employer]- All Rights Reserved Reading location - IP/workstation name: [email or web address]
[2018-07-19 14:51] LABS: APPEARANCE,URINE CLEAR; BILIRUBIN,URINE NEGATIVE (NEGATIVE); CALCIUM OXALATE CRYSTALS,URINE RARE /HPF; COLOR,URINE YELLOW; GLUCOSE, URINE NEGATIVE (NEGATIVE); KETONES,URINE NEGATIVE (NEGATIVE); LEUKOCYTE ESTERASE,URINE NEGATIVE (NEGATIVE); NITRITE,URINE NEGATIVE (NEGATIVE); PROTEIN,URINE NEGATIVE (NEGATIVE); URINE SPECIFIC GRAVITY 1.016
[2018-07-19] MEDS ORDERED: NORMAL SALINE 1000 ML 1,000 ML IV ONE (14:58)
[2018-07-19] MEDS ORDERED: ACETAMINOPHEN 325 MG TABLET PO PRN (15:04)
[2018-07-19] MEDS ORDERED: CEFTRIAXONE 1 GM/D5W RTU 1 GM/50 ML RTUPB IV SCH (16:00)
[2018-07-19] MEDS: CEFTRIAXONE SODIUM 1,000 MG in DEXTROSE 5%-WATER 50 ML IV SCH (16:44)
--- NOTE | 2018-07-19 17:14 | PDOC H&P ---
History of Present Illness Admission Date/PCP: 07/19/18 15:14 ADAN JOYCE MD Patient complains of: Fall and altered mental status History of Present Illness: HEMANT GRIFFITH is a 87 year old male This is a 87-year-old male with a significant history of the dementiaWith a history of the cerebrovascular accidents with a left-sided weaknessWith a history of the seizures disorder history of the coronary diseaseHistory of the pacemaker placement in the multiple other comorbidity currently lives with his family brought to the emergency department because of the patient have a history of the fall yesterday and a more confused and altered mental status In the emergency department patient initial workup source the patient's renal insufficiency and dehydration's and patients more confused with some encephalopathy Patient according to the family more worsening the dementia since last several months Patient recently have a PET scan done by Dr. Joyce for the lung mass was all stable Patient's initial CT of the head and x-ray of the chest and the knee was all stable Patient's appetite is poor and patient's feeling more weak per the family When I saw the patient's patient is alert awake but little bit more confused compared to the normally At this point we decided to admit the patient's for the dehydration's renal failure and acute encephalopathy rule out other etiology Past Medical History Cardiac Medical History: Reports: Congestive Heart Failure, Coronary Artery Disease, Hyperlipidema, Hypertension Denies: Atrial Fibrillation, Myocardial Infarction, Peripheral Vascular Disease, Pulmonary Embolism, Heart Murmur Pulmonary Medical History: Reports: Bronchitis, Chronic Obstructive Pulmonary Disease (COPD), Pneumonia Denies: Asthma, Respiratory Failure, Sleep Apnea, Tuberculosis Neurological Medical History: Reports: Ischemic CVA, Seizures Endocrine Medical History: Reports: Diabetes Mellitus Type 2 Renal/ Medical History: Reports: Chronic Kidney Disease Denies: End Stage Renal Disease Malignancy Medical History: Denies: Lung Cancer GI Medical History: Reports: Gastroesophageal Reflux Disease Denies: Crohn's Disease, Ulcerative Colitis Musculoskeltal Medical History: Reports: Arthritis Denies: Fibromyalgia Psychiatric Medical History: Reports: Dementia, Depression - anxiety Traumatic Medical History: Reports: Traumatic Brain Injury Hematology: Denies: Sickle Cell Disease Infectious Medical History: Denies: Clostridium Difficile Past Surgical History Past Surgical History: Reports: Pacemaker Social History Smoking Status: Unknown if Ever Smoked Frequency of Alcohol Use: Social Hx Recreational Drug Use: No Drugs: None Hx Prescription Drug Abuse: No Family History Family History: Reviewed & Not Pertinent Parental Family History Reviewed: Yes Children Family History Reviewed: Yes Sibling(s) Family History Reviewed.: Yes Medication/Allergy Home Medications: Acetazolamide [Diamox 250 mg Tab] 250 mg PO DAILY 3 Days #30 04/23/18 Omeprazole 40 mg PO DAILY 3 Days #30 04/23/18 Tamsulosin HCl [Flomax 0.4 mg Cap.sr] 0.4 mg PO DAILY 3 Days #04/23/18 Allopurinol [Zyloprim 100 mg Tablet] 100 mg PO DAILY 07/19/18 Aspirin [Aspirin EC] 81 mg PO DAILY 07/19/18 Donepezil HCl [Aricept] 10 mg PO QHS 07/19/18 Furosemide [Lasix 20 mg Tablet] 20 mg PO DAILY PRN 07/19/18 Levetiracetam 1,000 mg PO DAILY 07/19/18 Simvastatin 40 mg PO QHS 07/19/18 Allergies/Adverse Reactions: No Known Allergies Allergy (Unverified 12/06/11 18:45) Review of Systems ROS unobtainable: Due to mental status All systems: reviewed and no additional remarkable complaints except as stated Physical Exam General appearance: PRESENT: no acute distress, hard of hearing, thin Head exam: PRESENT: atraumatic, normocephalic Eye exam: PRESENT: conjunctiva pink, EOMI, PERRLA. ABSENT: scleral icterus Ear exam: PRESENT: normal external ear exam Mouth exam: PRESENT: moist, tongue midline Neck exam: PRESENT: full ROM. ABSENT: carotid bruit, JVD, lymphadenopathy, thyromegaly Respiratory exam: PRESENT: clear to auscultation charley Cardiovascular exam: PRESENT: RRR. ABSENT: diastolic murmur, rubs, systolic murmur Pulses: PRESENT: normal dorsalis pedis pul, +2 pedal pulses bilateral Vascular exam: PRESENT: normal capillary refill GI/Abdominal exam: PRESENT: normal bowel sounds, soft. ABSENT: distended, guarding, mass, organolmegaly, rebound, tenderness Rectal exam: PRESENT: deferred Extremities exam: ABSENT: pedal edema Neurological exam: PRESENT: alert, altered, awake. ABSENT: motor sensory deficit Additional comments: right -sided weakness from the old stroke Psychiatric exam: PRESENT: appropriate affect, normal mood. ABSENT: homicidal ideation, suicidal ideation Skin exam: PRESENT: dry, intact, warm. ABSENT: cyanosis, rash Results Impressions: Knee X-Ray 07/19/18 00:00 IMPRESSION: No acute fracture. No knee joint effusion. No radiopaque foreign body in the soft tissues Chest X-Ray 07/19/18 11:57 IMPRESSION: NO ACUTE RADIOGRAPHIC FINDING IN THE CHEST. Head CT 07/19/18 11:57 IMPRESSION: Chronic ischemic changes. EVIDENCE OF ACUTE STROKE: NO. Hip X-Ray 07/19/18 11:57 IMPRESSION: Bilateral SI joint sclerosis No acute fracture or malalignment of the hips or pelvis Assessment & Plan - Diagnosis (1) Acute renal failure Qualifiers: Acute renal failure type: unspecified Qualified Code(s): N17.9 - Acute kidney failure, unspecified Is this a current diagnosis for this admission?: Yes Plan: Continuous IV fluid rule out the urinary tract infections (2) Acute encephalopathy Is this a current diagnosis for this admission?: Yes Plan: Will admit the patient still correct the dehydration's rule out any infections (3) Dehydration Is this a current diagnosis for this admission?: Yes Plan: Start the patient on IV fluid (4) CVA, old, hemiparesis Is this a current diagnosis for this admission?: Yes Plan: Get the physical therapy evaluations (5) Cardiac pacemaker Is this a current diagnosis for this admission?: Yes (6) Chronic obstructive pulmonary disease Qualifiers: COPD type: unspecified COPD Qualified Code(s): J44.9 - Chronic obstructive pulmonary disease, unspecified Is this a current diagnosis for this admission?: Yes Plan: Will continues the nebulizer treatments (7) Dementia Qualifiers: Dementia type: vascular dementia Dementia behavioral disturbance: with behavioral disturbance Qualified Code(s): F01.51 - Vascular dementia with behavioral disturbance Is this a current diagnosis for this admission?: Yes Plan: Continues to current medications (8) Fall Qualifiers: Encounter type: initial encounter Qualified Code(s): W19.XXXA - Unspecified fall, initial encounter Is this a current diagnosis for this admission?: Yes Plan: Get the physical therapy evaluations (9) Pulmonary mass Is this a current diagnosis for this admission?: Yes Plan: 7 PET scan was all stable follow outpatient Dr. Chan (10) Seizure disorder Is this a current diagnosis for this admission?: Yes Plan: Continues to suggest medication and seizures precautions (11) Benign prostate hyperplasia Qualifiers: Lower urinary tract symptom presence: symptoms absent Qualified Code(s): N40.0 - Benign prostatic hyperplasia without lower urinary tract symptoms Is this a current diagnosis for this admission?: Yes Plan: Continues to current medication (12) CAD (coronary artery disease) Qualifiers: Coronary Disease-Associated Artery/Lesion type: unspecified vessel or lesion type Associated angina: without angina Is this a current diagnosis for this admission?: Yes Plan: Currently all stable no EKG change (13) Hypertension Qualifiers: Hypertension type: essential hypertension Qualified Code(s): I10 - Essential (primary) hypertension Is this a current diagnosis for this admission?: Yes Plan: Continues to current medications (14) Thrombocytosis Is this a current diagnosis for this admission?: Yes Plan: Currently follow with Dr. Joyce - Time Time Spent: 50 to 70 Minutes Medications reviewed and adjusted accordingly: Yes Anticipated discharge: SNF Within: Other - Inpatient Certification Based on my medical assessment, after consideration of the patient's comorbidities, presenting symptoms, or acuity I expect that the services needed warrant INPATIENT care.: Yes I certify that my determination is in accordance with my understanding of Medicare's requirements for reasonable and necessary INPATIENT services [42 CFR 412.3e].: Yes Medical Necessity: Need Close Monitoring Due to Risk of Patient Decompensation, Need For IV Fluids, Need for IV Antibiotics Post Hospital Care: D/C Athletic Trainer Documentation - Plan Summary Plan Summary: Admit the patient on the medical floor see other MD orders discussed with the patient's power of personal injury attorney and family regarding the patient's current conditions
[2018-07-19] MEDS: ENOXAPARIN SODIUM INJ 30 MG/0.3 ML DISP.SYRIN SUBCUT SCH (18:51)
[2018-07-19] MEDS: DOCUSATE SODIUM 100 MG CAPSULE PO SCH (18:51)
[2018-07-19] MEDS: NORMAL SALINE 1000 ML 1,000 ML IV PRN (18:53)
[2018-07-19] MEDS: TAMSULOSIN HCL 0.4 MG CAP.SR.24H PO SCH (18:53)
[2018-07-19] MEDS: IPRATROPIUM/ALBUTEROL 0.5-2.5 MG/3 ML AMPUL NEB SCH (20:22)
[2018-07-19] MEDS: SIMVASTATIN 40 MG TABLET PO SCH (21:24)
[2018-07-19] MEDS: DONEPEZIL HCL 5 MG TABLET PO SCH (21:28)
[2018-07-19] MEDS ORDERED: (PENDING PHARMACY ID) (Simvastatin [Simvastatin] 40 MG) PO SCH (22:00)
[2018-07-19] MEDS ORDERED: (PENDING PHARMACY ID) (Donepezil Hcl [Aricept] 10 MG) PO SCH (22:00)
[2018-07-20] MEDS: IPRATROPIUM/ALBUTEROL 0.5-2.5 MG/3 ML AMPUL NEB SCH ×4 (02:43→20:01)
[2018-07-20 05:27] LABS: ABSOLUTE BASOPHILS # (AUTO) 0.1 10^3/uL (0.0-0.2); ABSOLUTE EOSINOPHILS # (AUTO) 0.1 10^3/uL (0.0-0.6); ABSOLUTE LYMPHOCYTES (AUTO) 0.6 10^3/uL (0.5-4.7); ABSOLUTE MONOCYTES (AUTO) 0.6 10^3/uL (0.1-1.4); ABSOLUTE NEUT (AUTO) 5.6 10^3/uL (1.7-8.2); BASOPHILS % (AUTO) 0.9 % (0-2); EOSINOPHILS % (AUTO) 1.3 % (0-6); HEMATOCRIT 40.6 % (37.9-51.0); HEMOGLOBIN 15.3 g/dL (13.5-17.0); LYMPHOCYTES % (AUTO) 8.5 % (13-45); MEAN CORPUSCULAR HEMOGLOBIN 37.4 pg (27.0-33.4); MEAN CORPUSCULAR HGB CONC 37.8 g/dL (32.0-36.0); MEAN CORPUSCULAR VOLUME 99 fl (80-97); MONOCYTES % (AUTO) 8.7 % (3-13); PLATELET COUNT 903 10^3/uL (150-450); RED BLOOD COUNT 4.09 10^6/uL (4.35-5.55); RED CELL DISTRIBUTION WIDTH 15.8 % (11.5-14.0); SEGMENTED NEUTROPHILS % (AUTO) 80.6 % (42-78); TOTAL CELLS COUNTED % (AUTO) 100 %; WHITE BLOOD COUNT 6.9 10^3/uL (4.0-10.5)
[2018-07-20 05:28] LABS: ANION GAP 12 (5-19); BLOOD UREA NITROGEN 19 mg/dL (7-20); CALCIUM 8.8 mg/dL (8.4-10.2); CARBON DIOXIDE 17 mmol/L (22-30); CHLORIDE 113 mmol/L (98-107); GLUCOSE 101 mg/dL (75-110); POTASSIUM 3.9 mmol/L (3.6-5.0); SODIUM 142.1 mmol/L (137-145)
[2018-07-20] MEDS: LANSOPRAZOLE 30 MG TAB.RAP.DR PO SCH (06:17)
--- NOTE | 2018-07-20 08:55 | EKG REPORT ---
SEVERITY:- ABNORMAL ECG - ATRIAL-VENTRICULAR DUAL-PACED RHYTHM : Confirmed by: Saira Maldonado 20-Jul-2018 08:55:17
[2018-07-20] MEDS ORDERED: LEVETIRACETAM 1000 MG PO SCH (10:00)
[2018-07-20] MEDS: ASPIRIN 81 MG TABLET, ENT COATED PO SCH (10:43)
[2018-07-20] MEDS: DOCUSATE SODIUM 100 MG CAPSULE PO SCH ×2 (10:43→17:21)
[2018-07-20] MEDS: ALLOPURINOL 100 MG TABLET PO SCH (10:43)
[2018-07-20] MEDS: NORMAL SALINE 1000 ML 1,000 ML IV PRN (10:43)
[2018-07-20] MEDS: ENOXAPARIN SODIUM INJ 30 MG/0.3 ML DISP.SYRIN SUBCUT SCH (10:44)
[2018-07-20] MEDS: LEVETIRACETAM 500 MG TABLET PO SCH (11:05)
[2018-07-20] MEDS: ACETAZOLAMIDE 250 MG TABLET PO SCH (11:05)
[2018-07-20] MEDS ORDERED: NORMAL SALINE 1000 ML 1,000 ML IV PRN (13:04)
--- NOTE | 2018-07-20 14:32 | PDOC PROGRESS REPORT ---
Subjective Progress Note for:: 07/20/18 Subjective:: Patient is currently doing fair Still little bit confused No fever no chills Patient urine cultures positive for the bacteria wait for the culture and sensitivity currently on IV Rocephin His kidney function is also improving Reason For Visit: FALL,ACUTE ENCEPHALOPATHY,ALTERED MENTAL STATUS Physical Exam Vital Signs: Temp Pulse Resp BP Pulse Ox 98.5 F 70 16 127/86 H 97 07/20/18 11:18 07/20/18 13:36 07/20/18 13:36 07/20/18 11:18 07/20/18 13:36 Intake & Output 07/19/18 07/20/18 07/21/18 06:59 06:59 06:59 Intake Total 237 1050 Balance 237 1050 Weight 53.8 kg General appearance: PRESENT: no acute distress, other Head exam: PRESENT: atraumatic, normocephalic Eye exam: PRESENT: conjunctiva pink, EOMI, PERRLA. ABSENT: scleral icterus Ear exam: PRESENT: normal external ear exam Mouth exam: PRESENT: moist, tongue midline Neck exam: PRESENT: full ROM. ABSENT: carotid bruit, JVD, lymphadenopathy, thyromegaly Respiratory exam: PRESENT: clear to auscultation charley Cardiovascular exam: PRESENT: RRR. ABSENT: diastolic murmur, rubs, systolic murmur Pulses: PRESENT: normal dorsalis pedis pul, +2 pedal pulses bilateral Vascular exam: PRESENT: normal capillary refill GI/Abdominal exam: PRESENT: normal bowel sounds, soft. ABSENT: distended, guarding, mass, organolmegaly, rebound, tenderness Rectal exam: PRESENT: deferred Extremities exam: ABSENT: pedal edema Additional comments: Right-sided's contracture due to the stroke Neurological exam: PRESENT: alert, awake, oriented to person. ABSENT: motor sensory deficit Psychiatric exam: PRESENT: appropriate affect, normal mood. ABSENT: homicidal ideation, suicidal ideation Skin exam: PRESENT: dry, intact, warm. ABSENT: cyanosis, rash Results Laboratory Results: 07/20/18 04:54 07/20/18 04:54 07/20/18 07/20/18 07/20/18 04:54 04:54 04:54 WBC 6.9 RBC 4.09 L Hgb 15.3 Hct 40.6 MCV 99 H MCH 37.4 H MCHC 37.8 H RDW 15.8 H Plt Count 903 H Seg Neutrophils % 80.6 H Lymphocytes % 8.5 L Monocytes % 8.7 Eosinophils % 1.3 Basophils % 0.9 Absolute Neutrophils 5.6 Absolute Lymphocytes 0.6 Absolute Monocytes 0.6 Absolute Eosinophils 0.1 Absolute Basophils 0.1 Sodium 142.1 Potassium 3.9 Chloride 113 H Carbon Dioxide 17 L Anion Gap 12 BUN 19 Creatinine 0.99 Est GFR ( Amer) > 60 Est GFR (Non-Af Amer) > 60 Glucose 101 Calcium 8.8 Ammonia < 8.7 L Impressions: Knee X-Ray 07/19/18 00:00 IMPRESSION: No acute fracture. No knee joint effusion. No radiopaque foreign body in the soft tissues Chest X-Ray 07/19/18 11:57 IMPRESSION: NO ACUTE RADIOGRAPHIC FINDING IN THE CHEST. Head CT 07/19/18 11:57 IMPRESSION: Chronic ischemic changes. EVIDENCE OF ACUTE STROKE: NO. Hip X-Ray 07/19/18 11:57 IMPRESSION: Bilateral SI joint sclerosis No acute fracture or malalignment of the hips or pelvis Assessment & Plan - Diagnosis (1) Urinary tract bacterial infections Is this a current diagnosis for this admission?: Yes Plan: Continuous IV antibiotics wait for the culture and sensitivity (2) Acute renal failure Qualifiers: Acute renal failure type: unspecified Qualified Code(s): N17.9 - Acute kidney failure, unspecified Is this a current diagnosis for this admission?: Yes Plan: Currently all resolving continues IV fluid (3) Acute encephalopathy Is this a current diagnosis for this admission?: Yes Plan: Likely due to the underlying UTI and worsening the dementia currently all get better (4) Dehydration Is this a current diagnosis for this admission?: Yes Plan: Start the patient on IV fluid (5) CVA, old, hemiparesis Is this a current diagnosis for this admission?: Yes Plan: Get the physical therapy evaluations (6) Cardiac pacemaker Is this a current diagnosis for this admission?: Yes (7) Chronic obstructive pulmonary disease Qualifiers: COPD type: unspecified COPD Qualified Code(s): J44.9 - Chronic obstructive pulmonary disease, unspecified Is this a current diagnosis for this admission?: Yes Plan: Will continues the nebulizer treatments (8) Dementia Qualifiers: Dementia type: vascular dementia Dementia behavioral disturbance: with behavioral disturbance Qualified Code(s): F01.51 - Vascular dementia with behavioral disturbance Is this a current diagnosis for this admission?: Yes Plan: Continues to current medications (9) Fall Qualifiers: Encounter type: initial encounter Qualified Code(s): W19.XXXA - Unspecified fall, initial encounter Is this a current diagnosis for this admission?: Yes Plan: Continues to physical therapy (10) Pulmonary mass Is this a current diagnosis for this admission?: Yes Plan: 7 PET scan was all stable follow outpatient Dr. Chan (11) Seizure disorder Is this a current diagnosis for this admission?: Yes Plan: Continues to suggest medication and seizures precautions (12) Benign prostate hyperplasia Qualifiers: Lower urinary tract symptom presence: symptoms absent Qualified Code(s): N40.0 - Benign prostatic hyperplasia without lower urinary tract symptoms Is this a current diagnosis for this admission?: Yes Plan: Continues to current medication (13) CAD (coronary artery disease) Qualifiers: Coronary Disease-Associated Artery/Lesion type: unspecified vessel or lesion type Associated angina: without angina Is this a current diagnosis for this admission?: Yes Plan: Currently all stable no EKG change (14) Hypertension Qualifiers: Hypertension type: essential hypertension Qualified Code(s): I10 - Essential (primary) hypertension Is this a current diagnosis for this admission?: Yes Plan: Continues to current medications (15) Thrombocytosis Is this a current diagnosis for this admission?: Yes Plan: Currently follow with Dr. Han - Time Time Spent with patient: 15-24 minutes Medications reviewed and adjusted accordingly: Yes Anticipated discharge: SNF Within: Other - Inpatient Certification Based on my medical assessment, after consideration of the patient's comorbidities, presenting symptoms, or acuity I expect that the services needed warrant INPATIENT care.: Yes I certify that my determination is in accordance with my understanding of Medicare's requirements for reasonable and necessary INPATIENT services [42 CFR 412.3e].: Yes Medical Necessity: Need Close Monitoring Due to Risk of Patient Decompensation, Need For IV Fluids, Need for IV Antibiotics Post Hospital Care: D/C Television Inspector Documentation - Plan Summary Plan Summary: See MD orders
[2018-07-20] MEDS: TAMSULOSIN HCL 0.4 MG CAP.SR.24H PO SCH (17:21)
[2018-07-20] MEDS: CEFTRIAXONE SODIUM 1,000 MG in DEXTROSE 5%-WATER 50 ML IV SCH (17:21)
[2018-07-20] MEDS: DONEPEZIL HCL 5 MG TABLET PO SCH (21:45)
[2018-07-20] MEDS: SIMVASTATIN 40 MG TABLET PO SCH (21:46)
[2018-07-21] MEDS: IPRATROPIUM/ALBUTEROL 0.5-2.5 MG/3 ML AMPUL NEB SCH ×4 (02:09→21:35)
[2018-07-21] MEDS: LANSOPRAZOLE 30 MG TAB.RAP.DR PO SCH (06:17)
[2018-07-21 06:47] LABS: ABSOLUTE EOSINOPHILS # (AUTO) 0.1 10^3/uL (0.0-0.6); ABSOLUTE LYMPHOCYTES (AUTO) 0.5 10^3/uL (0.5-4.7); ABSOLUTE MONOCYTES (AUTO) 0.6 10^3/uL (0.1-1.4); BASOPHILS % (AUTO) 0.7 % (0-2); HEMATOCRIT 47.3 % (37.9-51.0); HEMOGLOBIN 15.7 g/dL (13.5-17.0); LYMPHOCYTES % (AUTO) 6.4 % (13-45); MEAN CORPUSCULAR HEMOGLOBIN 33.2 pg (27.0-33.4); MEAN CORPUSCULAR HGB CONC 33.2 g/dL (32.0-36.0); MEAN CORPUSCULAR VOLUME 100 fl (80-97); PLATELET COUNT 628 10^3/uL (150-450); RED BLOOD COUNT 4.73 10^6/uL (4.35-5.55); RED CELL DISTRIBUTION WIDTH 15.9 % (11.5-14.0); SEGMENTED NEUTROPHILS % (AUTO) 82.9 % (42-78); TOTAL CELLS COUNTED % (AUTO) 100 %; WHITE BLOOD COUNT 7.2 10^3/uL (4.0-10.5)
[2018-07-21 07:05] LABS: ANION GAP 12 (5-19); BLOOD UREA NITROGEN 15 mg/dL (7-20); CARBON DIOXIDE 18 mmol/L (22-30); CHLORIDE 110 mmol/L (98-107); GLUCOSE 89 mg/dL (75-110); POTASSIUM 4.8 mmol/L (3.6-5.0); SODIUM 140.4 mmol/L (137-145)
[2018-07-21] MEDS: ASPIRIN 81 MG TABLET, ENT COATED PO SCH (08:59)
[2018-07-21] MEDS: LEVETIRACETAM 500 MG TABLET PO SCH (08:59)
[2018-07-21] MEDS: ALLOPURINOL 100 MG TABLET PO SCH (08:59)
[2018-07-21] MEDS: ENOXAPARIN SODIUM INJ 30 MG/0.3 ML DISP.SYRIN SUBCUT SCH (08:59)
[2018-07-21] MEDS: DOCUSATE SODIUM 100 MG CAPSULE PO SCH ×2 (08:59→18:05)
--- NOTE | 2018-07-21 13:13 | PDOC PROGRESS REPORT ---
Subjective Progress Note for:: 07/21/18 Subjective:: Patient is currently doing fair Still little bit confused No fever no chills Patient urine cultures positive for the bacteria wait for the culture and sensitivity currently on IV Rocephin His kidney function is also improving Reason For Visit: FALL,ACUTE ENCEPHALOPATHY,ALTERED MENTAL STATUS Physical Exam Vital Signs: Temp Pulse Resp BP Pulse Ox 97.8 F 99 20 125/81 97 07/21/18 11:31 07/21/18 11:31 07/21/18 11:31 07/21/18 11:31 07/21/18 11:31 Intake & Output 07/20/18 07/21/18 07/22/18 06:59 06:59 06:59 Intake Total 237 2760 Output Total 300 Balance 237 2460 Weight 53.8 kg 53.4 kg General appearance: PRESENT: no acute distress Eye exam: PRESENT: PERRLA Mouth exam: PRESENT: neck supple Respiratory exam: PRESENT: clear to auscultation charley Cardiovascular exam: PRESENT: +S1, +S2 GI/Abdominal exam: PRESENT: normal bowel sounds, soft Neurological exam: PRESENT: alert, awake Results Laboratory Results: 07/21/18 05:58 07/21/18 05:58 07/21/18 07/21/18 05:58 05:58 WBC 7.2 RBC 4.73 Hgb 15.7 Hct 47.3 MCV 100 H MCH 33.2 MCHC 33.2 RDW 15.9 H Plt Count 628 H Seg Neutrophils % 82.9 H Lymphocytes % 6.4 L Monocytes % 9.0 Eosinophils % 1.0 Basophils % 0.7 Absolute Neutrophils 6.0 Absolute Lymphocytes 0.5 Absolute Monocytes 0.6 Absolute Eosinophils 0.1 Absolute Basophils 0.0 Sodium 140.4 Potassium 4.8 Chloride 110 H Carbon Dioxide 18 L Anion Gap 12 BUN 15 Creatinine 1.01 Est GFR ( Amer) > 60 Est GFR (Non-Af Amer) > 60 Glucose 89 Calcium 9.0 Impressions: Knee X-Ray 07/19/18 00:00 IMPRESSION: No acute fracture. No knee joint effusion. No radiopaque foreign body in the soft tissues Chest X-Ray 07/19/18 11:57 IMPRESSION: NO ACUTE RADIOGRAPHIC FINDING IN THE CHEST. Head CT 07/19/18 11:57 IMPRESSION: Chronic ischemic changes. EVIDENCE OF ACUTE STROKE: NO. Hip X-Ray 07/19/18 11:57 IMPRESSION: Bilateral SI joint sclerosis No acute fracture or malalignment of the hips or pelvis Assessment & Plan - Diagnosis (1) Urinary tract bacterial infections Is this a current diagnosis for this admission?: Yes Plan: Continues IV Rocephin discharged with the Keflex (2) Acute renal failure Qualifiers: Acute renal failure type: unspecified Qualified Code(s): N17.9 - Acute kidney failure, unspecified Is this a current diagnosis for this admission?: Yes Plan: Currently all resolved (3) Acute encephalopathy Is this a current diagnosis for this admission?: Yes Plan: Currently all resolving (4) Dehydration Is this a current diagnosis for this admission?: Yes Plan: Currently all resolved stop the IV fluid (5) CVA, old, hemiparesis Is this a current diagnosis for this admission?: Yes Plan: Get the physical therapy evaluations (6) Cardiac pacemaker Is this a current diagnosis for this admission?: Yes (7) Chronic obstructive pulmonary disease Qualifiers: COPD type: unspecified COPD Qualified Code(s): J44.9 - Chronic obstructive pulmonary disease, unspecified Is this a current diagnosis for this admission?: Yes Plan: Will continues the nebulizer treatments (8) Dementia Qualifiers: Dementia type: vascular dementia Dementia behavioral disturbance: with behavioral disturbance Qualified Code(s): F01.51 - Vascular dementia with behavioral disturbance Is this a current diagnosis for this admission?: Yes Plan: Continues to current medications (9) Fall Qualifiers: Encounter type: initial encounter Qualified Code(s): W19.XXXA - Unspecified fall, initial encounter Is this a current diagnosis for this admission?: Yes Plan: Continues to physical therapy (10) Pulmonary mass Is this a current diagnosis for this admission?: Yes Plan: 7 PET scan was all stable follow outpatient Dr. Chan (11) Seizure disorder Is this a current diagnosis for this admission?: Yes Plan: Continues to suggest medication and seizures precautions (12) Benign prostate hyperplasia Qualifiers: Lower urinary tract symptom presence: symptoms absent Qualified Code(s): N40.0 - Benign prostatic hyperplasia without lower urinary tract symptoms Is this a current diagnosis for this admission?: Yes Plan: Continues to current medication (13) CAD (coronary artery disease) Qualifiers: Coronary Disease-Associated Artery/Lesion type: unspecified vessel or lesion type Associated angina: without angina Is this a current diagnosis for this admission?: Yes Plan: Currently all stable no EKG change (14) Hypertension Qualifiers: Hypertension type: essential hypertension Qualified Code(s): I10 - Essential (primary) hypertension Is this a current diagnosis for this admission?: Yes Plan: Continues to current medications (15) Thrombocytosis Is this a current diagnosis for this admission?: Yes Plan: Currently follow with Dr. Han - Time Time Spent with patient: 15-24 minutes Medications reviewed and adjusted accordingly: Yes Anticipated discharge: SNF Within: within 24 hours - Inpatient Certification Medical Necessity: Need Close Monitoring Due to Risk of Patient Decompensation Post Hospital Care: D/C Respiratory Therapist Documentation - Plan Summary Plan Summary: Plan to discharge the patient's tomorrow the rehab facility
[2018-07-21] MEDS: CEFTRIAXONE SODIUM 1,000 MG in DEXTROSE 5%-WATER 50 ML IV SCH (16:21)
[2018-07-21] MEDS: ACETAZOLAMIDE 250 MG TABLET PO SCH (16:21)
[2018-07-21] MEDS: TAMSULOSIN HCL 0.4 MG CAP.SR.24H PO SCH (18:05)
[2018-07-21] MEDS ORDERED: IPRATROPIUM/ALBUTEROL 0.5-2.5 MG/3 ML AMPUL NEB PRN (21:20)
[2018-07-21] MEDS: DONEPEZIL HCL 5 MG TABLET PO SCH (22:03)
[2018-07-21] MEDS: SIMVASTATIN 40 MG TABLET PO SCH (22:03)
[2018-07-22] MEDS: IPRATROPIUM/ALBUTEROL 0.5-2.5 MG/3 ML AMPUL NEB SCH ×4 (02:13→20:20)
[2018-07-22] MEDS: LANSOPRAZOLE 30 MG TAB.RAP.DR PO SCH (05:32)
[2018-07-22 05:35] LABS: ABSOLUTE BASOPHILS # (AUTO) 0.1 10^3/uL (0.0-0.2); ABSOLUTE EOSINOPHILS # (AUTO) 0.1 10^3/uL (0.0-0.6); ABSOLUTE LYMPHOCYTES (AUTO) 0.6 10^3/uL (0.5-4.7); ABSOLUTE NEUT (AUTO) 6.4 10^3/uL (1.7-8.2); BASOPHILS % (AUTO) 0.7 % (0-2); EOSINOPHILS % (AUTO) 1.2 % (0-6); HEMATOCRIT 45.7 % (37.9-51.0); HEMOGLOBIN 15.1 g/dL (13.5-17.0); LYMPHOCYTES % (AUTO) 6.9 % (13-45); MEAN CORPUSCULAR HEMOGLOBIN 32.8 pg (27.0-33.4); MEAN CORPUSCULAR VOLUME 99 fl (80-97); MONOCYTES % (AUTO) 12.9 % (3-13); PLATELET COUNT 648 10^3/uL (150-450); RED BLOOD COUNT 4.61 10^6/uL (4.35-5.55); RED CELL DISTRIBUTION WIDTH 15.9 % (11.5-14.0); SEGMENTED NEUTROPHILS % (AUTO) 78.3 % (42-78); TOTAL CELLS COUNTED % (AUTO) 100 %; WHITE BLOOD COUNT 8.1 10^3/uL (4.0-10.5)
[2018-07-22 06:00] LABS: BLOOD UREA NITROGEN 18 mg/dL (7-20); CALCIUM 8.7 mg/dL (8.4-10.2); CARBON DIOXIDE 20 mmol/L (22-30); GLUCOSE 78 mg/dL (75-110); POTASSIUM 4.8 mmol/L (3.6-5.0)
[2018-07-22 06:02] LABS: ANION GAP 10 (5-19); CHLORIDE 108 mmol/L (98-107)
[2018-07-22] MEDS: DOCUSATE SODIUM 100 MG CAPSULE PO SCH ×2 (09:21→17:32)
[2018-07-22] MEDS: ASPIRIN 81 MG TABLET, ENT COATED PO SCH (09:22)
[2018-07-22] MEDS: ENOXAPARIN SODIUM INJ 30 MG/0.3 ML DISP.SYRIN SUBCUT SCH (09:22)
[2018-07-22] MEDS: ACETAZOLAMIDE 250 MG TABLET PO SCH (09:22)
[2018-07-22] MEDS: ALLOPURINOL 100 MG TABLET PO SCH (09:22)
[2018-07-22] MEDS: LEVETIRACETAM 500 MG TABLET PO SCH (09:22)
[2018-07-22] MEDS ORDERED: METHYLPREDNISOLONE INJ 125 MG/2 ML SDV ONE (12:20)
[2018-07-22] MEDS ORDERED: METHYLPREDNISOLONE INJ 125 MG/2 ML SDV IV ONE (13:20)
--- NOTE | 2018-07-22 13:37 | RADIOLOGY REPORT (SQ) ---
EXAM DESCRIPTION: CT CHEST WITHOUT COMPLETED DATE/TIME: 07/22/2018 1:18 pm REASON FOR STUDY: chf COMPARISON: PET-CT 05/14/2018 CT chest 04/20/2018, 03/18/2016, 03/14/2012 Chest films 07/19/2018, 07/22/2018 TECHNIQUE: CT scan performed of the chest without intravenous contrast. Images reviewed with lung, soft tissue and bone windows. Reconstructed coronal and sagittal MPR images reviewed. All images st ored on PACS. All CT scanners at this facility use dose modulation, iterative reconstruction, and/or weight based d osing when appropriate to reduce radiation dose to as low as reasonably achievable (ALARA). [facility]: Dose Right [facility]: CareDose [facility]: Dose Right [facility]: Teradose 4D [facility]: Smart [employer] RADIATION DOSE: CT Rad equipment meets quality standard of care and radiation dose reduction techniq ues were employed. CTDIvol: 9.2 mGy. DLP: 358 mGy-cm. mGy. LIMITATIONS: No technical limitations. FINDINGS: LUNGS AND PLEURA: Persistent focal loculation of pleural fluid at the upper most edge of t he right major fissure on axial image 20, now 2.5 cm in greatest diameter (was 3 cm diameter 04/20/2018 ). Trace pleural fluid layers dependently in the right and left chest. Minimal right basilar atelectasis. Lungs are otherwise grossly clear. There is narrowing of the right upper lobe bronchus axial image 25, similar compared to 04/20/2018, and progressive since 03/18/2016. HILAR AND MEDIASTINAL STRUCTURES: Old calcified bilateral hilar and mediastinal lymph nodes. HEART AND VASCULAR STRUCTURES: Stable moderate to marked cardiomegaly UPPER ABDOMEN: No significant findings. Limited exam. THYROID AND OTHER SOFT TISSUES: No masses. No adenopathy. BONES: No significant finding. HARDWARE: Left-sided pacemaker unchanged OTHER: No other significant findings. IMPRESSION: Persistent focal loculation of pleural fluid at the upper most edge of the right major f issure. Trace pleural fluid layering dependently in the right and left chest. No pulmonary edema. New narrowing of the right upper lobe bronchus TECHNICAL DOCUMENTATION: JOB ID: [id number] Quality ID # [id number]: Final reports with documentation of one or more dose reduction techniques (e.g., Au tomated exposure control, adjustment of the mA and/or kV according to patient size, use of iterative reconstruction technique) 2010 [employer]- All Rights Reserved Reading location - IP/workstation name: [email or web address]
--- NOTE | 2018-07-22 13:39 | RADIOLOGY REPORT (SQ) ---
EXAM DESCRIPTION: CHEST SINGLE VIEW COMPLETED DATE/TIME: 07/22/2018 12:06 pm REASON FOR STUDY: lungs sound congested COMPARISON: Chest films 04/19/2018, 05/01/2018, 07/19/2018 EXAM PARAMETERS: NUMBER OF VIEWS: One view. TECHNIQUE: Single frontal radiographic view of the chest acquired. RADIATION DOSE: NA LIMITATIONS: None. FINDINGS: LUNGS AND PLEURA: No gross acute infiltrates. Trace pleural effusions seen on subsequent chest CT 07/22/2018 are not apparent by plain film. No dense consolidation worrisome for pneumonia. No pneumothorax. MEDIASTINUM AND HILAR STRUCTURES: No masses. Contour normal. HEART AND VASCULAR STRUCTURES: Stable cardiomegaly with pacemaker/defibrillator BONES: No acute findings. HARDWARE: Pacemaker/defibrillator OTHER: No other significant finding. IMPRESSION: NO ACUTE RADIOGRAPHIC FINDING IN THE CHEST. TECHNICAL DOCUMENTATION: JOB ID: [id number] [employer]- All Rights Reserved Reading location - IP/workstation name: [email or web address]
--- NOTE | 2018-07-22 15:04 | PDOC PROGRESS REPORT ---
Subjective Progress Note for:: 07/22/18 Subjective:: Patient was seen by the bedside, he was visibly audibly wheezing, on auscultation of his chest there is diffuse wheeze of both lung field, CT chest was done without contrast, it demonstrated persistent focal loculation of pleural fluid at the uppermost edge of the right major fissure, slightly decreased in size compared to the imaging from 04/20/2018 there is narrowing of the right upper lobe bronchus similar to 04/20/2018 and progressive since [address] chest finding clinically the expected physical finding should be focal wheezing but on auscultation there is diffuse wheezing, patient already on bronchodilators,, history of COPD Reason For Visit: FALL,ACUTE ENCEPHALOPATHY,ALTERED MENTAL STATUS Physical Exam Vital Signs: Temp Pulse Resp BP Pulse Ox 97.5 F 72 18 106/69 96 07/22/18 11:26 07/22/18 14:30 07/22/18 14:30 07/22/18 11:26 07/22/18 14:30 Intake & Output 07/21/18 07/22/18 07/23/18 06:59 06:59 06:59 Intake Total 2760 786 Output Total 300 100 Balance 2460 686 Weight 53.4 kg 53.6 kg General appearance: PRESENT: severe distress Eye exam: PRESENT: PERRLA Respiratory exam: PRESENT: wheezes Cardiovascular exam: PRESENT: +S1, +S2 GI/Abdominal exam: PRESENT: soft Neurological exam: PRESENT: alert Results Laboratory Results: 07/22/18 04:47 07/22/18 04:47 07/22/18 07/22/18 04:47 04:47 WBC 8.1 RBC 4.61 Hgb 15.1 Hct 45.7 MCV 99 H MCH 32.8 MCHC 33.0 RDW 15.9 H Plt Count 648 H Seg Neutrophils % 78.3 H Lymphocytes % 6.9 L Monocytes % 12.9 Eosinophils % 1.2 Basophils % 0.7 Absolute Neutrophils 6.4 Absolute Lymphocytes 0.6 Absolute Monocytes 1.0 Absolute Eosinophils 0.1 Absolute Basophils 0.1 Sodium 138.0 Potassium 4.8 Chloride 108 H Carbon Dioxide 20 L Anion Gap 10 BUN 18 Creatinine 1.11 Est GFR ( Amer) > 60 Est GFR (Non-Af Amer) > 60 Glucose 78 Calcium 8.7 07/22/18 04:47 NT-Pro-B Natriuret Pep 41358 H Impressions: Knee X-Ray 07/19/18 00:00 IMPRESSION: No acute fracture. No knee joint effusion. No radiopaque foreign body in the soft tissues Head CT 07/19/18 11:57 IMPRESSION: Chronic ischemic changes. EVIDENCE OF ACUTE STROKE: NO. Hip X-Ray 07/19/18 11:57 IMPRESSION: Bilateral SI joint sclerosis No acute fracture or malalignment of the hips or pelvis Chest X-Ray 07/22/18 11:41 IMPRESSION: NO ACUTE RADIOGRAPHIC FINDING IN THE CHEST. Chest CT 07/22/18 12:13 IMPRESSION: Persistent focal loculation of pleural fluid at the upper most edge of the right major fissure. Trace pleural fluid layering dependently in the right and left chest. No pulmonary edema. New narrowing of the right upper lobe bronchus Assessment & Plan - Diagnosis (1) Acute exacerbation of chronic obstructive pulmonary disease (COPD) Is this a current diagnosis for this admission?: Yes Plan: Start Solu-Medrol 125 mg every 8 hours, continue bronchodilators, continue antibiotic (2) Acute encephalopathy Is this a current diagnosis for this admission?: Yes
[2018-07-22] MEDS: CEFTRIAXONE SODIUM 1,000 MG in DEXTROSE 5%-WATER 50 ML IV SCH (16:13)
[2018-07-22] MEDS: TAMSULOSIN HCL 0.4 MG CAP.SR.24H PO SCH (17:32)
[2018-07-22] MEDS: SIMVASTATIN 40 MG TABLET PO SCH (21:09)
[2018-07-22] MEDS: METHYLPREDNISOLONE INJ 125 MG/2 ML SDV IV SCH (21:09)
[2018-07-22] MEDS: DONEPEZIL HCL 5 MG TABLET PO SCH (21:09)
[2018-07-22 23:17] LABS: ARTERIAL BLOOD BASE EXCESS -8.5 mmol/L; ARTERIAL BLOOD H2CO3 0.95 mmol/L (1.05-1.35); ARTERIAL BLOOD O2 SATURATION 96.3 % (94-98); ARTERIAL BLOOD PCO2 31.5 mmHg (35-45); ARTERIAL BLOOD PH 7.33 (7.35-7.45); ARTERIAL BLOOD PO2 88.9 mmHg (80-100)
[2018-07-22 23:19] LABS: ARTERIAL BLOOD FIO2 ROOM AIR
[2018-07-23] MEDS: IPRATROPIUM/ALBUTEROL 0.5-2.5 MG/3 ML AMPUL NEB SCH ×4 (02:22→20:32)
[2018-07-23] MEDS: LANSOPRAZOLE 30 MG TAB.RAP.DR PO SCH (05:06)
[2018-07-23] MEDS: METHYLPREDNISOLONE INJ 125 MG/2 ML SDV IV SCH ×3 (05:43→22:28)
[2018-07-23] MEDS: ACETAZOLAMIDE 250 MG TABLET PO SCH (09:54)
[2018-07-23] MEDS: ENOXAPARIN SODIUM INJ 30 MG/0.3 ML DISP.SYRIN SUBCUT SCH (09:54)
[2018-07-23] MEDS: LEVETIRACETAM 500 MG TABLET PO SCH (09:54)
[2018-07-23] MEDS: ASPIRIN 81 MG TABLET, ENT COATED PO SCH (09:54)
[2018-07-23] MEDS: DOCUSATE SODIUM 100 MG CAPSULE PO SCH ×2 (09:54→17:09)
[2018-07-23] MEDS: ALLOPURINOL 100 MG TABLET PO SCH (09:55)
[2018-07-23] MEDS ORDERED: FUROSEMIDE INJ/PF 40 MG/4 ML SDV ONE (14:34)
[2018-07-23] MEDS: CEFTRIAXONE SODIUM 1,000 MG in DEXTROSE 5%-WATER 50 ML IV SCH (15:04)
[2018-07-23] MEDS ORDERED: FUROSEMIDE INJ/PF 40 MG/4 ML SDV IV ONE (15:30)
--- NOTE | 2018-07-23 16:55 | PDOC PROGRESS REPORT ---
Subjective Progress Note for:: 07/23/18 Subjective:: Patient was seen by the bedside, he was visibly audibly wheezing, on auscultation of his chest there is diffuse wheeze of both lung field, CT chest was done without contrast, it demonstrated persistent focal loculation of pleural fluid at the uppermost edge of the right major fissure, slightly decreased in size compared to the imaging from 04/20/2018 there is narrowing of the right upper lobe bronchus similar to 04/20/2018 and progressive since [address] chest finding clinically the expected physical finding should be focal wheezing but on auscultation there is diffuse wheezing, patient already on bronchodilators,, history of COPD Reason For Visit: FALL,ACUTE ENCEPHALOPATHY,ALTERED MENTAL STATUS Physical Exam Vital Signs: Temp Pulse Resp BP Pulse Ox 97.9 F 105 H 16 119/73 100 07/23/18 15:36 07/23/18 15:36 07/23/18 15:36 07/23/18 15:36 07/23/18 15:36 Intake & Output 07/22/18 07/23/18 07/24/18 06:59 06:59 06:59 Intake Total 786 316 50 Output Total 100 325 Balance 686 -9 50 Weight 53.6 kg 53.6 kg General appearance: PRESENT: mild distress Eye exam: PRESENT: PERRLA Respiratory exam: PRESENT: rales, rhonchi Cardiovascular exam: PRESENT: +S1, +S2 GI/Abdominal exam: PRESENT: soft Neurological exam: PRESENT: alert Results Laboratory Results: 07/22/18 04:47 07/22/18 04:47 07/22/18 23:05 Carbonic Acid 0.95 L HCO3/H2CO3 Ratio 16:1 ABG pH 7.33 L ABG pCO2 31.5 L ABG pO2 88.9 ABG HCO3 16.0 L ABG O2 Saturation 96.3 ABG Base Excess -8.5 FiO2 ROOM AIR 07/22/18 04:47 NT-Pro-B Natriuret Pep 08424 H Impressions: Knee X-Ray 07/19/18 00:00 IMPRESSION: No acute fracture. No knee joint effusion. No radiopaque foreign body in the soft tissues Head CT 07/19/18 11:57 IMPRESSION: Chronic ischemic changes. EVIDENCE OF ACUTE STROKE: NO. Hip X-Ray 07/19/18 11:57 IMPRESSION: Bilateral SI joint sclerosis No acute fracture or malalignment of the hips or pelvis Chest X-Ray 07/22/18 11:41 IMPRESSION: NO ACUTE RADIOGRAPHIC FINDING IN THE CHEST. Chest CT 07/22/18 12:13 IMPRESSION: Persistent focal loculation of pleural fluid at the upper most edge of the right major fissure. Trace pleural fluid layering dependently in the right and left chest. No pulmonary edema. New narrowing of the right upper lobe bronchus Assessment & Plan - Diagnosis (1) Acute exacerbation of chronic obstructive pulmonary disease (COPD) Is this a current diagnosis for this admission?: Yes (2) Acute encephalopathy Is this a current diagnosis for this admission?: Yes - Plan Summary Plan Summary: Continue treatment, give Lasix 40 mg IV
[2018-07-23] MEDS: TAMSULOSIN HCL 0.4 MG CAP.SR.24H PO SCH (17:09)
[2018-07-23] MEDS: SIMVASTATIN 40 MG TABLET PO SCH (22:28)
[2018-07-23] MEDS: DONEPEZIL HCL 5 MG TABLET PO SCH (22:28)
[2018-07-24] MEDS: IPRATROPIUM/ALBUTEROL 0.5-2.5 MG/3 ML AMPUL NEB SCH ×3 (02:02→13:38)
[2018-07-24] MEDS: LANSOPRAZOLE 30 MG TAB.RAP.DR PO SCH (05:24)
[2018-07-24] MEDS: METHYLPREDNISOLONE INJ 125 MG/2 ML SDV IV SCH ×2 (05:29→14:06)
--- NOTE | 2018-07-24 09:08 | PDOC TRANSFER SUMMARY ---
General - Admit/Disc Date/PCP Admission Date/Primary Care Provider: 07/19/18 15:14 ADAN JOYCE MD Discharge Date: 07/24/18 - Discharge Diagnosis (1) Urinary tract bacterial infections Is this a current diagnosis for this admission?: Yes Summary: Currently all resolving (2) Acute renal failure Is this a current diagnosis for this admission?: Yes Summary: Currently all resolved (3) Acute encephalopathy Is this a current diagnosis for this admission?: Yes Summary: Currently all resolved (4) Dehydration Is this a current diagnosis for this admission?: Yes Summary: All resolved (5) CVA, old, hemiparesis Is this a current diagnosis for this admission?: Yes Summary: Continues to physical therapy minor right-sided weakness (6) Cardiac pacemaker Is this a current diagnosis for this admission?: Yes Summary: Follow with the Dr. Gongora as an outpatient (7) Chronic obstructive pulmonary disease Is this a current diagnosis for this admission?: Yes Summary: Continues with as needed nebulizer treatment (8) Dementia Is this a current diagnosis for this admission?: Yes Summary: Continues to current medication (9) Fall Is this a current diagnosis for this admission?: Yes Summary: Physical therapyFall precautions (10) Pulmonary mass Is this a current diagnosis for this admission?: Yes Summary: Patient of a PET scan was done in May [address] Joyce (11) Seizure disorder Is this a current diagnosis for this admission?: Yes Summary: Continues to current medication (12) Benign prostate hyperplasia Is this a current diagnosis for this admission?: Yes Summary: Currently all stable (13) CAD (coronary artery disease) Is this a current diagnosis for this admission?: Yes Summary: Follow with the Dr. Gongora as outpatient (14) Hypertension Is this a current diagnosis for this admission?: Yes Summary: Currently all stable (15) Thrombocytosis Is this a current diagnosis for this admission?: Yes Summary: Patients follow outpatients Dr. Joyce for that - Additional Information Resuscitation Status: Do Not Resuscitate Discharge Diet: Diabetic Discharge Activity: Activity As Tolerated Prescriptions: Cephalexin Monohydrate [Keflex 500 mg Capsule] 500 mg PO BID #10 capsule Ipratropium/Albuterol Sulfate [Duoneb 3 ml Ampul] 3 ml NEB RTQ6 PRN #1 vial.[email or web address] PRN Reason: Home Medications: Acetazolamide [Diamox 250 mg Tab] 250 mg PO DAILY 3 Days #30 04/23/18 Omeprazole 40 mg PO DAILY 3 Days #30 04/23/18 Tamsulosin HCl [Flomax 0.4 mg Cap.sr] 0.4 mg PO DAILY 3 Days #30 04/23/18 Allopurinol [Zyloprim 100 mg Tablet] 100 mg PO DAILY 07/19/18 Aspirin [Aspirin EC] 81 mg PO DAILY 07/19/18 Donepezil HCl [Aricept] 10 mg PO QHS 07/19/18 Furosemide [Lasix 20 mg Tablet] 20 mg PO DAILY PRN 07/19/18 Levetiracetam 1,000 mg PO DAILY 07/19/18 Simvastatin 40 mg PO QHS 07/19/18 Cephalexin Monohydrate [Keflex 500 mg Capsule] 500 mg PO BID #10 capsule Ipratropium/Albuterol Sulfate [Duoneb 3 ml Ampul] 3 ml NEB RTQ6 PRN #1 [email or web address].[facility] 07/24/18 History of Present Illness Admission Date/PCP: 07/19/18 15:14 ADAN JOYCE MD History of Present Illness: HEMANT GRIFFITH is a 87 year old male This is a 87-year-old male with a significant history of the dementiaWith a history of the cerebrovascular accidents with a left-sided weaknessWith a history of the seizures disorder history of the coronary diseaseHistory of the pacemaker placement in the multiple other comorbidity currently lives with his family brought to the emergency department because of the patient have a history of the fall yesterday and a more confused and altered mental status In the emergency department patient initial workup source the patient's renal insufficiency and dehydration's and patients more confused with some encephalopathy Patient according to the family more worsening the dementia since last several months Patient recently have a PET scan done by Dr. Joyce for the lung mass was all stable Patient's initial CT of the head and x-ray of the chest and the knee was all stable Patient's appetite is poor and patient's feeling more weak per the family When I saw the patient's patient is alert awake but little bit more confused compared to the normally At this point we decided to admit the patient's for the dehydration's renal failure and acute encephalopathy rule out other etiology Hospital Course Hospital Course: This is a 87-year-old male with the medical problem as above came with altered mental status encephalopathy dehydration's any urinary tract infections She was treated with IV Rocephin grew up the gram-negative organism sensitive to Rocephin and switch to the p.o. Keflex Is all medical problem with stable renal failure and dehydration is all resolved and encephalopathy is all resolved Patient still have underlying baseline dementia which sometimes patient gets agitated and some behavior issue currently on no medications History of the old strokes with right-sided weakness at this point with external discussions with the patient's daughter who has the power of state attorney send the patient's to the rehab facility for further strengthening of the muscles and the may be a good not improving needs to long-term care Patients follow outpatients Dr. Joyce for pulmonary mass and thrombocytosis have upcoming appointment to see her Patients follow outpatients Dr. Gongora for the cardiac pacemaker Physical Exam Vital Signs: Temp Pulse Resp BP Pulse Ox 97.8 F 100 20 120/71 97 07/24/18 08:00 07/24/18 08:18 07/24/18 08:18 07/24/18 08:00 07/24/18 08:18 Intake & Output 07/23/18 07/24/18 07/25/18 06:59 06:59 06:59 Intake Total 316 605 Output Total 325 275 Balance -9 330 Weight 53.6 kg 43 kg General appearance: PRESENT: no acute distress, well-developed, well-nourished Head exam: PRESENT: atraumatic, normocephalic Eye exam: PRESENT: conjunctiva pink, EOMI, PERRLA. ABSENT: scleral icterus Ear exam: PRESENT: normal external ear exam Mouth exam: PRESENT: moist, tongue midline Neck exam: ABSENT: carotid bruit, JVD, lymphadenopathy, thyromegaly Respiratory exam: PRESENT: clear to auscultation charley. ABSENT: rales, rhonchi, wheezes Cardiovascular exam: PRESENT: RRR. ABSENT: diastolic murmur, rubs, systolic murmur Pulses: PRESENT: normal dorsalis pedis pul Vascular exam: PRESENT: normal capillary refill GI/Abdominal exam: PRESENT: normal bowel sounds, soft. ABSENT: distended, guarding, mass, organolmegaly, rebound, tenderness Rectal exam: PRESENT: deferred Extremities exam: PRESENT: full ROM. ABSENT: calf tenderness, clubbing, pedal edema Neurological exam: PRESENT: alert, awake, oriented to person. ABSENT: motor sensory deficit Psychiatric exam: PRESENT: appropriate affect, normal mood. ABSENT: homicidal ideation, suicidal ideation Skin exam: PRESENT: dry, intact, warm. ABSENT: cyanosis, rash Results Laboratory Results: 07/22/18 04:47 07/22/18 04:47 07/22/18 04:47 NT-Pro-B Natriuret Pep [id number] H Impressions: Knee X-Ray 07/19/18 00:00 IMPRESSION: No acute fracture. No knee joint effusion. No radiopaque foreign body in the soft tissues Head CT 07/19/18 11:57 IMPRESSION: Chronic ischemic changes. EVIDENCE OF ACUTE STROKE: NO. Hip X-Ray 07/19/18 11:57 IMPRESSION: Bilateral SI joint sclerosis No acute fracture or malalignment of the hips or pelvis Chest X-Ray 07/22/18 11:41 IMPRESSION: NO ACUTE RADIOGRAPHIC FINDING IN THE CHEST. Chest CT 07/22/18 12:13 IMPRESSION: Persistent focal loculation of pleural fluid at the upper most edge of the right major fissure. Trace pleural fluid layering dependently in the right and left chest. No pulmonary edema. New narrowing of the right upper lobe bronchus Transfer Plan - Time Spent with Patient Time spent with patient: Greater than 30 Minutes Qualifiers - * PATIENT BEING DISCHARGED WITH ANY OF THE FOLLOWING DIAGNOSIS: No VTE patient discharged on overlapping Therapy?: Yes Plan Time Spent: Greater than 30 Minutes - Discharge from rehab facility continues to physical therapy and fall precautions and seizures precautions
[2018-07-24] MEDS: DOCUSATE SODIUM 100 MG CAPSULE PO SCH (09:37)
[2018-07-24] MEDS: ALLOPURINOL 100 MG TABLET PO SCH (09:37)
[2018-07-24] MEDS: ENOXAPARIN SODIUM INJ 30 MG/0.3 ML DISP.SYRIN SUBCUT SCH (09:37)
[2018-07-24] MEDS: LEVETIRACETAM 500 MG TABLET PO SCH (09:37)
[2018-07-24] MEDS: ASPIRIN 81 MG TABLET, ENT COATED PO SCH (09:37)
[2018-07-24] MEDS: ACETAZOLAMIDE 250 MG TABLET PO SCH (09:38)
[2018-07-24 12:50] VITALS: BP 112/77
== END 2018-07-24 15:26 | DRG 690 ==
LOC: ER 11:35 → OBSVTOIN 15:14 → EH 15:14 → 4S 17:21
PROVIDERS: ADMIT Family Medicine; ATTEND Family Medicine
PROC: 3E0F73Z Introduction of Anti-inflammatory into Respiratory Tract, Via Natural or Artificial Opening (ICD-10-PCS; principal; 2018-07-19)
DX: N39.0 Urinary tract infection, site not specified (principal); N17.9 Acute kidney failure, unspecified; I69.351 Hemiplegia and hemiparesis following cerebral infarction affecting right dominant side; G93.40 Encephalopathy, unspecified; G95.89 Other specified diseases of spinal cord; F01.51 Vascular dementia, unspecified severity, with behavioral disturbance; J44.1 Chronic obstructive pulmonary disease with (acute) exacerbation; E86.0 Dehydration; Z66 Do not resuscitate; Z95.0 Presence of cardiac pacemaker; W19.XXXA Unspecified fall, initial encounter; R91.8 Other nonspecific abnormal finding of lung field; G40.909 Epilepsy, unspecified, not intractable, without status epilepticus; I25.10 Atherosclerotic heart disease of native coronary artery without angina pectoris; D47.3 Essential (hemorrhagic) thrombocythemia; I13.10 Hypertensive heart and chronic kidney disease without heart failure, with stage 1 through stage 4 chronic kidney disease, or unspecified chronic kidney disease; N40.1 Benign prostatic hyperplasia with lower urinary tract symptoms; E11.22 Type 2 diabetes mellitus with diabetic chronic kidney disease; E78.00 Pure hypercholesterolemia, unspecified; N18.9 Chronic kidney disease, unspecified; M19.90 Unspecified osteoarthritis, unspecified site; F32.9 Major depressive disorder, single episode, unspecified; F41.9 Anxiety disorder, unspecified; K21.9 Gastro-esophageal reflux disease without esophagitis; Z79.82 Long term (current) use of aspirin; Z79.899 Other long term (current) drug therapy; Z87.820 Personal history of traumatic brain injury; Z87.891 Personal history of nicotine dependence
CPT/HCPCS: 36415; 36600; 70450; 71045; 71250; 73522; 80048; 80053; 81001; 82140; 82803; 83735; 83880; 84443; 85025; 87040; 87086; 87088; 87186; 90471; 90686; 93005; 93010; 94640; 96360; 99285; G0008; G8978-GP; G8979-GP; G8996-GN; G8997-GN; G8998-GN; J0696; J1650; J1940; J2930; J3490; J7030; J7620

== ENCOUNTER 2018-07-25 20:02 | Inpatient (IN) | payer OTHER, MEDICARE ==
[2018-07-25] MEDS ORDERED: IPRATROPIUM/ALBUTEROL 0.5-2.5 MG/3 ML AMPUL NEB ONE (20:10)
[2018-07-25] MEDS ORDERED: PREDNISONE 20 MG TABLET PO ONE (20:10)
[2018-07-25] MEDS ORDERED: METHYLPREDNISOLONE INJ 125 MG/2 ML SDV IV ONE (20:14)
--- NOTE | 2018-07-25 20:31 | ER Document Report ---
ED General - General Chief Complaint: Breathing Difficulty Stated Complaint: FALL/BACK PAIN Time Seen by Provider: 07/25/18 20:15 TRAVEL OUTSIDE OF THE [place] IN LAST 30 DAYS: No - HPI Notes: Patient is a 87-year-old male that presents to the emergency department for chief complaint of fall. Patient was brought in by EMS from shelter facility after he had 2 falls today. long term reported that the falls were unwitnessed. I do not have any further history on the falls and patient's dementia limits HPI. His daughter states that he has had recent frequent falls and was just discharged to the shelter facility recently. Patient's only complaint to me is pain all over. Daughter states that he does have a DNR order and does not wish to to be put on a ventilator. She also states he has a pacemaker that has batteries and they will not be replacing his pacemaker batteries. EMS states that he was 87% on room air and sounded wheezing, his oxygen improved on 2 L nasal cannula. Past Medical History: Dementia, CKD, epilepsy, stroke Past Surgical History: Pacemaker Social History: Unknown Family History: Reviewed and noncontributory for presenting illness Allergies: Reviewed, see documented allergy list. REVIEW OF SYSTEMS: Unable to obtain because of dementia PHYSICAL EXAMINATION: Vital signs reviewed, nursing noted reviewed. GENERAL: Well-appearing, well-nourished and in no acute distress. HEAD: normocephalic. EYES: Eyes appear normal, extraocular movements intact, sclera anicteric, conjunctiva are normal. ENT: nares patent, oropharynx clear without exudates. Moist mucous membranes. No facial bone tenderness or laxity, no nasal septal hematoma NECK: C-collar in place, no midline tenderness. supple without lymphadenopathy LUNGS: Audible wheezing diffusely with tachypnea and accessory muscle use HEART: Regular rate and rhythm without murmurs ABDOMEN: Soft, nontender, normoactive bowel sounds. No rebound, guarding, or rigidity. No masses appreciated. EXTREMITIES: Nontender, good range of motion, no pitting or edema. Pelvis stable NEUROLOGICAL: Oriented to person only. Right upper extremity flexion contraction. Spontaneous movement of bilateral legs and left arm. No appreciable sensory loss. PSYCH: Normal mood, normal affect. SKIN: Warm, Dry, normal turgor. Right upper eyelid abrasion with no active bleeding - Related Data Allergies/Adverse Reactions: No Known Allergies Allergy (Unverified 12/06/11 18:45) Past Medical History - Social History Smoking Status: Unknown if Ever Smoked Family History: Reviewed & Not Pertinent - Past Medical History Cardiac Medical History: Reports: Hx Congestive Heart Failure, Hx Coronary Artery Disease, Hx Hypercholesterolemia, Hx Hypertension Denies: Hx Atrial Fibrillation, Hx Heart Attack, Hx Peripheral Vascular Disease, Hx Pulmonary Embolism, Hx Heart Murmur Pulmonary Medical History: Reports: Hx Bronchitis, Hx COPD, Hx Pneumonia Denies: Hx Asthma, Hx Respiratory Failure, Hx Sleep Apnea, Hx Tuberculosis Neurological Medical History: Reports: Hx Cerebrovascular Accident - x 2, Hx Seizures Endocrine Medical History: Reports: Hx Diabetes Mellitus Type 2 Renal/ Medical History: Reports: Hx Benign Prostatic Hyperplasia. Denies: Hx End Stage Renal Disease, Hx Kidney Stones, Hx Peritoneal Dialysis Malignancy Medical History: Denies Hx Lung Cancer GI Medical History: Reports: Hx Gastroesophageal Reflux Disease. Denies: Hx Crohn's Disease, Hx Ulcerative Colitis Musculoskeletal Medical History: Reports Hx Arthritis, Denies Hx Fibromyalgia, Denies Hx Multiple Sclerosis, Denies Hx Muscular Dystrophy Psychiatric Medical History: Reports: Hx Dementia, Hx Depression - anxiety Traumatic Medical History: Reports: Hx Traumatic Brain Injury. Denies: Hx Fractures Infectious Medical History: Denies: Hx C-Diff Past Surgical History: Reports: Hx Cardiac Surgery - pacemaker dfib placed, Hx Pacemaker - Immunizations Hx Diphtheria, Pertussis, Tetanus Vaccination: Yes - unk Hx Pneumococcal Vaccination: 10/17/08 Review of Systems - Review of Systems Notes: Dictated Physical Exam - Vital signs Vitals: Pulse Ox 97 07/25/18 20:07 - Notes Notes: Dictated Course - Re-evaluation Re-evalutation: 07/25/18 20:3Vitals reviewed. Nursing notes reviewed. Patient has significant increased work of breathing and wheezing and was given steroids and nebulized breathing treatments. 07/25/18 21:22 Patient's respiratory status was improved after aerosols. He is still oxygenating on nasal cannula and is requiring oxygen. Chest x-ray is unremarkable. Patient has an elevated lactate and WBC count. He is meeting sepsis criteria. He was given broad-spectrum antibiotics and IV hydration. Fluids have improved his heart rate. I discussed his care with Dr. Carreno who requested CT scan of the chest to evaluate for possible aspiration. Patient also has an indeterminate troponin at 0.066 and will be given rectal aspirin, repeat troponin was ordered. EKG showed no changes from prior. Patient will be admitted to the hospital for further management of his hypoxia and sepsis. Patient's family in agreement with the plan. Dr. Carreno accepted admission. Laboratory 07/25/18 07/25/18 07/25/18 20:25 20:25 20:25 WBC 12.7 H RBC 5.35 Hgb 17.6 H Hct 53.5 H MCV 100 H MCH 32.8 MCHC 32.9 RDW 16.0 H Plt Count 751 H Total Counted 100 Seg Neutrophils % Not Reportable Seg Neuts % (Manual) 87 H Band Neutrophils % 1 L Lymphocytes % Not Reportable Lymphocytes % (Manual) 1 L Atypical Lymphs % 3 Monocytes % Not Reportable Monocytes % (Manual) 8 Eosinophils % Not Reportable Eosinophils % (Manual) 0 Basophils % Not Reportable Basophils % (Manual) 0 Absolute Neutrophils Not Reportable Abs Neuts (Manual) 11.2 H Absolute Lymphocytes Not Reportable Abs Lymphs (Manual) 0.5 Absolute Monocytes Not Reportable Abs Monocytes (Manual) 1.0 Absolute Eosinophils Not Reportable Absolute Eos (Manual) 0.0 Absolute Basophils Not Reportable Abs Basophils (Manual) 0.0 Toxic Granulation SLIGHT Toxic Vacuolation PRESENT Platelet Comment ADEQUATE Anisocytosis 1+ Tear Drop Cells 2+ Carbonic Acid HCO3/H2CO3 Ratio ABG pH ABG pCO2 ABG pO2 ABG HCO3 ABG Total CO2 ABG O2 Saturation ABG Base Excess FiO2 Sodium 138.3 Potassium 4.5 Chloride 104 Carbon Dioxide 26 Anion Gap 8 BUN 35 H Creatinine 1.36 H Est GFR ( Amer) > 60 Est GFR (Non-Af Amer) 50 L Glucose 117 H Lactic Acid Calcium 9.4 Total Bilirubin 0.6 Direct Bilirubin 0.4 Neonat Total Bilirubin Not Reportable Neonat Direct Bilirubin Not Reportable Neonat Indirect Bili Not Reportable AST 57 ALT 31 Alkaline Phosphatase 61 Troponin I 0.066 Total Protein 7.7 Albumin 4.2 07/25/18 07/25/18 20:25 20:44 WBC RBC Hgb Hct MCV MCH MCHC RDW Plt Count Total Counted Seg Neutrophils % Seg Neuts % (Manual) Band Neutrophils % Lymphocytes % Lymphocytes % (Manual) Atypical Lymphs % Monocytes % Monocytes % (Manual) Eosinophils % Eosinophils % (Manual) Basophils % Basophils % (Manual) Absolute Neutrophils Abs Neuts (Manual) Absolute Lymphocytes Abs Lymphs (Manual) Absolute Monocytes Abs Monocytes (Manual) Absolute Eosinophils Absolute Eos (Manual) Absolute Basophils Abs Basophils (Manual) Toxic Granulation Toxic Vacuolation Platelet Comment Anisocytosis Tear Drop Cells Carbonic Acid 1.12 HCO3/H2CO3 Ratio 19:1 ABG pH 7.39 ABG pCO2 37.3 ABG pO2 145.7 H ABG HCO3 22.0 ABG Total CO2 23.2 ABG O2 Saturation 98.9 H ABG Base Excess -2.4 FiO2 2L Sodium Potassium Chloride Carbon Dioxide Anion Gap BUN Creatinine Est GFR ( Amer) Est GFR (Non-Af Amer) Glucose Lactic Acid 2.7 H Calcium Total Bilirubin Direct Bilirubin Neonat Total Bilirubin Neonat Direct Bilirubin Neonat Indirect Bili AST ALT Alkaline Phosphatase Troponin I Total Protein Albumin Chest X-Ray 07/25/18 00:00 IMPRESSION: Cardiomegaly without CHF. 07/25/18 22:01 CT head and cervical spine negative for acute injury - Vital Signs Vital signs: Temp Pulse Resp BP Pulse Ox 31 H 116/60 96 07/25/18 20:28 07/25/18 20:28 07/25/18 20:28 - Laboratory Result Diagrams: 07/25/18 20:25 07/25/18 20:25 Laboratory results interpreted by me: 07/25/18 07/25/18 07/25/18 20:25 20:25 20:25 WBC 12.7 H Hgb 17.6 H Hct 53.5 H MCV 100 H RDW 16.0 H Plt Count 751 H Seg Neuts % (Manual) 87 H Band Neutrophils % 1 L Lymphocytes % (Manual) 1 L Abs Neuts (Manual) 11.2 H ABG pO2 ABG O2 Saturation BUN 35 H Creatinine 1.36 H Est GFR (Non-Af Amer) 50 L Glucose 117 H Lactic Acid 2.7 H 07/25/18 20:44 WBC Hgb Hct MCV RDW Plt Count Seg Neuts % (Manual) Band Neutrophils % Lymphocytes % (Manual) Abs Neuts (Manual) ABG pO2 145.7 H ABG O2 Saturation 98.9 H BUN Creatinine Est GFR (Non-Af Amer) Glucose Lactic Acid - EKG Interpretation by Me Additional EKG results interpreted by me: 07/25/18 20:38 2031: Ventricularly paced rhythm, rate 99, normal axis, PVCs, no significant change from 07/19/18 Discharge - Discharge Clinical Impression: COPD exacerbation, Hypoxia, Severe sepsis, Elevated troponin Closed head injury Qualifiers: Encounter type: initial encounter Qualified Code(s): S09.90XA - Unspecified injury of head, initial encounter Abrasion of right eyelid Qualifiers: Encounter type: initial encounter Qualified Code(s): S00.211A - Abrasion of right eyelid and periocular area, initial encounter Condition: Stable Disposition: ADMITTED INPATIENT Admitting Provider: Carreno Unit Admitted: Telemetry
[2018-07-25] MEDS ORDERED: NORMAL SALINE 1000 ML 1,000 ML IV ONE (20:33)
[2018-07-25] MEDS: ALBUTEROL SULFATE 0.083% NEB 2.5 MG/3 ML AMPUL NEB SCH ×2 (20:34→20:58)
--- NOTE | 2018-07-25 20:48 | RADIOLOGY REPORT (SQ) ---
"EXAM DESCRIPTION: CHEST SINGLE VIEW COMPLETED DATE/TIME: 07/25/2018 8:21 pm REASON FOR STUDY: fall COMPARISON: Chest x-ray 07/22/2018. CT 07/22/2018 EXAM PARAMETERS: NUMBER OF VIEWS: One view. TECHNIQUE: Single frontal radiographic view of the chest acquired. RADIATION DOSE: NA LIMITATIONS: None. FINDINGS: LUNGS AND PLEURA: No opacities, masses or pneumothorax. No pleural effusion. MEDIASTINUM AND HILAR STRUCTURES: No masses. Contour normal. HEART AND VASCULAR STRUCTURES: Cardiomegaly. No pulmonary edema. BONES: No acute findings. HARDWARE: Pacemaker/defibrillator. OTHER: No other significant finding. IMPRESSION: Cardiomegaly without CHF. 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
[2018-07-25 20:53] LABS: HEMATOCRIT 53.5 % (37.9-51.0); HEMOGLOBIN 17.6 g/dL (13.5-17.0); MEAN CORPUSCULAR HEMOGLOBIN 32.8 pg (27.0-33.4); MEAN CORPUSCULAR HGB CONC 32.9 g/dL (32.0-36.0); MEAN CORPUSCULAR VOLUME 100 fl (80-97); PLATELET COUNT 751 10^3/uL (150-450); RED BLOOD COUNT 5.35 10^6/uL (4.35-5.55); WHITE BLOOD COUNT 12.7 10^3/uL (4.0-10.5)
[2018-07-25] MEDS ORDERED: PIPERACILLIN/TAZOBACTAM 3.375 GM VIAL IV ONE (20:54)
[2018-07-25] MEDS ORDERED: VANCOMYCIN HCL INJ 1000 MG VIAL IV ONE (20:54)
[2018-07-25 21:00] LABS: ALANINE AMINOTRANSFERASE 31 U/L (21-72); ALBUMIN 4.2 g/dL (3.5-5.0); ALKALINE PHOSPHATASE 61 U/L (38-126); ANION GAP 8 (5-19); ASPARTATE AMINO TRANSFERASE 57 U/L (17-59); BILIRUBIN,DIRECT 0.4 mg/dL (0.0-0.4); BILIRUBIN,TOTAL 0.6 mg/dL (0.2-1.3); BLOOD UREA NITROGEN 35 mg/dL (7-20); CALCIUM 9.4 mg/dL (8.4-10.2); CARBON DIOXIDE 26 mmol/L (22-30); CHLORIDE 104 mmol/L (98-107); GLUCOSE 117 mg/dL (75-110); POTASSIUM 4.5 mmol/L (3.6-5.0); SODIUM 138.3 mmol/L (137-145); TOTAL PROTEIN 7.7 g/dL (6.3-8.2)
[2018-07-25 21:09] LABS: ARTERIAL BLOOD BASE EXCESS -2.4 mmol/L; ARTERIAL BLOOD FIO2 2L; ARTERIAL BLOOD H2CO3 1.12 mmol/L (1.05-1.35); ARTERIAL BLOOD O2 SATURATION 98.9 % (94-98); ARTERIAL BLOOD PCO2 37.3 mmHg (35-45); ARTERIAL BLOOD PH 7.39 (7.35-7.45); ARTERIAL BLOOD PO2 145.7 mmHg (80-100); ARTERIAL BLOOD TOTAL CO2 23.2 mmol/L (23-27)
[2018-07-25 21:14] LABS: ABSOLUTE LYMPHOCYTES# (MANUAL) 0.5 10^3/uL (0.5-4.7); ABSOLUTE NEUTROPHILS# (MANUAL) 11.2 10^3/uL (1.7-8.2); BAND NEUTROPHILS % (MANUAL) 1 % (3-5); BASOPHILS % (MANUAL) 0 % (0-2); EOSINOPHILS % (MANUAL) 0 % (0-6); LYMPHOCYTES % (MANUAL) 1 % (13-45); MONOCYTES % (MANUAL) 8 % (3-13); SEGMENTED NEUTROPHILS % (MAN) 87 % (42-78); TOTAL CELLS COUNTED 100
[2018-07-25 21:16] LABS: ANISOCYTOSIS 1+; TEAR DROP CELLS 2+; TOXIC GRANULATION SLIGHT; TOXIC VACUOLATION PRESENT
[2018-07-25 21:18] LABS: PLATELET COMMENT ADEQUATE
[2018-07-25] MEDS ORDERED: ASPIRIN 600 MG SUPP, RECTAL PR ONE (21:24)
[2018-07-25] MEDS ORDERED: ACETAMINOPHEN 325 MG TABLET PO PRN (21:26)
--- NOTE | 2018-07-25 21:38 | RADIOLOGY REPORT (SQ) ---
CT BRAIN AND CERVICAL SPINE WITHOUT IV CONTRAST HISTORY: Trauma. COMPARISON: 07/19/2018 TECHNIQUE: CT scan of the brain and cervical spine. This exam was performed according to our departmental dose-optimization program, which includes automated exposure control, adjustment of the mA and/or kV according to patient size and/or use of iterative reconstruction technique. FINDINGS: BRAIN: Diffuse involutional changes are present. Large areas of encephalomalacia involving the left MCA and [employer] territories. Scattered areas of hypoattenuation within the periventricular white matter likely representing chronic microvascular ischemia. The gresham-white matter differentiation is preserved without evidence of acute infarction. No acute intracranial hemorrhage or extra-axial fluid collection is seen. No midline shift, mass effect, or hydrocephalus. No air-fluid levels are seen in the sinuses. No calvarial fracture. CERVICAL SPINE: No acute fracture. Cervical alignment is maintained without static listhesis. Multilevel degenerative disc disease along with facet arthropathy is present. No significant canal stenosis. No prevertebral soft tissue swelling. IMPRESSION: 1. No acute intracranial abnormality. 2. No acute fracture or static listhesis of the cervical spine.
--- NOTE | 2018-07-25 21:38 | RADIOLOGY REPORT (SQ) ---
CT BRAIN AND CERVICAL SPINE WITHOUT IV CONTRAST HISTORY: Trauma. COMPARISON: 07/19/2018 TECHNIQUE: CT scan of the brain and cervical spine. This exam was performed according to our departmental dose-optimization program, which includes automated exposure control, adjustment of the mA and/or kV according to patient size and/or use of iterative reconstruction technique. FINDINGS: BRAIN: Diffuse involutional changes are present. Large areas of encephalomalacia involving the left MCA and [employer] territories. Scattered areas of hypoattenuation within the periventricular white matter likely representing chronic microvascular ischemia. The gresham-white matter differentiation is preserved without evidence of acute infarction. No acute intracranial hemorrhage or extra-axial fluid collection is seen. No midline shift, mass effect, or hydrocephalus. No air-fluid levels are seen in the sinuses. No calvarial fracture. CERVICAL SPINE: No acute fracture. Cervical alignment is maintained without static listhesis. Multilevel degenerative disc disease along with facet arthropathy is present. No significant canal stenosis. No prevertebral soft tissue swelling. IMPRESSION: 1. No acute intracranial abnormality. 2. No acute fracture or static listhesis of the cervical spine.
[2018-07-25] MEDS ORDERED: (PENDING PHARMACY ID) (Donepezil Hcl [Aricept] 10 MG) PO SCH (22:00)
[2018-07-25] MEDS ORDERED: (PENDING PHARMACY ID) (Simvastatin [Simvastatin] 40 MG) PO SCH (22:00)
--- NOTE | 2018-07-25 22:00 | RADIOLOGY REPORT (SQ) ---
EXAM DESCRIPTION: CT CHEST WITHOUT IV CONTRAST COMPLETED DATE/TME: 07/25/2018 21:21 CLINICAL HISTORY: 87 years, Male, hypoxia COMPARISON: None. TECHNIQUE: CT of the chest was done, without intravenous contrast in orthogonal planes Images stored on PACS. All CT scanners at this facility use dose modulation, iterative reconstruction, and/or weight based dosing when appropriate to reduce radiation dose to as low as reasonably achievable (ALARA). [facility]: Dose Right [facility]: CareDose [facility]: Dose Right [facility]: Teradose 4D [facility]: [employer] LIMITATIONS: None. FINDINGS: There are underlying changes of COPD. In the right posteromedial upper lobe there is a semilunar mass measuring 2.2 x 1.2 x 1.3 cm, abutting the superior medial aspect of the right major fissure. This may represent a true lung base mass or may represent loculated pleural fluid in this portion of the right major fissure. There is no discrete airspace infiltrate or pleural effusion. There is no pericardial effusion. There is no pathological lymphadenopathy in the mediastinum or the hilar regions. There is no aneurysmal dilatation of the thoracic aorta. The visualized upper abdominal viscera is unremarkable mild multilevel degenerative changes seen in the thoracic spine. Note is made of left sided AICD with good position of the AICD wires IMPRESSION: There are underlying changes of COPD. In the right posteromedial upper lobe there is a semilunar mass measuring 2.2 x 1.2 x 1.3 cm, abutting the superior medial aspect of the right major fissure. This may represent a true lung base mass or may represent loculated pleural fluid in this portion of the right major fissure. Further evaluation of this finding with a contrast-enhanced CT of the chest is requested TECHNICAL DOCUMENTATION: Quality ID # [id number]: Final reports with documentation of one or more dose reduction techniques (e.g., Automated exposure control, adjustment of the mA and/or kV according to patient size, use of iterative reconstruction technique) 2010 [employer]- All Rights Reserved
[2018-07-25] MEDS ORDERED: CEFEPIME 2 GM/D5W RTU 2 GM/50 ML RTUPB IV ONE (22:15)
[2018-07-26] MEDS: FUROSEMIDE INJ/PF 20 MG/2 ML SDV IV SCH ×2 (00:17→10:04)
[2018-07-26] MEDS: METRONIDAZOLE 500 MG/NS RTU 500 MG/100 ML RTUPB IV SCH ×2 (00:18→06:04)
[2018-07-26 01:39] LABS: CREATINE KINASE MB 6.06 ng/mL (<4.55); TROPONIN I 0.093 ng/mL
[2018-07-26 02:01] LABS: APPEARANCE,URINE CLEAR; BILIRUBIN,URINE NEGATIVE (NEGATIVE); COLOR,URINE STRAW; GLUCOSE, URINE NEGATIVE (NEGATIVE); KETONES,URINE NEGATIVE (NEGATIVE); LEUKOCYTE ESTERASE,URINE NEGATIVE (NEGATIVE); NITRITE,URINE NEGATIVE (NEGATIVE); PROTEIN,URINE NEGATIVE (NEGATIVE); UROBILINOGEN,URINE NEGATIVE mg/dL (<2.0)
[2018-07-26 02:02] LABS: URINE SPECIFIC GRAVITY 1.006
[2018-07-26] MEDS: IPRATROPIUM/ALBUTEROL 0.5-2.5 MG/3 ML AMPUL NEB SCH ×4 (02:08→20:08)
[2018-07-26] MEDS: LANSOPRAZOLE 30 MG TAB.RAP.DR PO SCH (06:04)
[2018-07-26 07:38] LABS: HEMATOCRIT 46.6 % (37.9-51.0); MEAN CORPUSCULAR HEMOGLOBIN 32.3 pg (27.0-33.4); MEAN CORPUSCULAR VOLUME 98 fl (80-97); PLATELET COUNT 632 10^3/uL (150-450); RED BLOOD COUNT 4.75 10^6/uL (4.35-5.55); RED CELL DISTRIBUTION WIDTH 15.9 % (11.5-14.0); WHITE BLOOD COUNT 9.8 10^3/uL (4.0-10.5)
[2018-07-26 07:47] LABS: ALANINE AMINOTRANSFERASE 36 U/L (21-72); ALBUMIN 3.2 g/dL (3.5-5.0); ALKALINE PHOSPHATASE 44 U/L (38-126); ANION GAP 9 (5-19); ASPARTATE AMINO TRANSFERASE 42 U/L (17-59); BILIRUBIN,DIRECT 0.3 mg/dL (0.0-0.4); BILIRUBIN,TOTAL 0.5 mg/dL (0.2-1.3); BLOOD UREA NITROGEN 30 mg/dL (7-20); CALCIUM 8.8 mg/dL (8.4-10.2); CARBON DIOXIDE 22 mmol/L (22-30); CHLORIDE 109 mmol/L (98-107); CREATINE KINASE 445 U/L (55-170); GLUCOSE 132 mg/dL (75-110); POTASSIUM 4.8 mmol/L (3.6-5.0); SODIUM 140.2 mmol/L (137-145); TOTAL PROTEIN 5.9 g/dL (6.3-8.2)
[2018-07-26 07:48] LABS: HEMOGLOBIN 15.4 g/dL (13.5-17.0)
[2018-07-26 08:01] LABS: ABSOLUTE LYMPHOCYTES# (MANUAL) 0.1 10^3/uL (0.5-4.7); ABSOLUTE MONOCYTES # (MANUAL) 0.4 10^3/uL (0.1-1.4); ABSOLUTE NEUTROPHILS# (MANUAL) 9.3 10^3/uL (1.7-8.2); BASOPHILS % (MANUAL) 0 % (0-2); EOSINOPHILS % (MANUAL) 0 % (0-6); LYMPHOCYTES % (MANUAL) 1 % (13-45); MONOCYTES % (MANUAL) 4 % (3-13); NUCLEATED RED BLOOD CELLS 1 /100 WBC (0); SEGMENTED NEUTROPHILS % (MAN) 95 % (42-78); TOTAL CELLS COUNTED 100
[2018-07-26 08:02] LABS: BURR CELLS 1+; OVALOCYTES 1+; PLATELET COMMENT INCREASED; POIKILOCYTOSIS 1+; SCHISTOCYTES SLIGHT; TOXIC GRANULATION SLIGHT; TOXIC VACUOLATION PRESENT
[2018-07-26 08:04] LABS: TROPONIN I 0.075 ng/mL
--- NOTE | 2018-07-26 09:16 | PDOC H&P ---
History of Present Illness Admission Date/PCP: 07/25/18 21:25 ALANNA MONTE MD Patient complains of: FallAnd hypoxia History of Present Illness: HEMANT GRIFFITH is a 87 year old male This is a 87-year-old male with a significant history of the dementia history of the coronary artery disease cardiac pacemaker and a history of the pulmonary mass and multiple medical issues just recently admitted by the UTI and discharge couple of days in a long-term brought to the ER by EMS because of the history of the couple of fall without any witness In the long-term Patients also hypoxic to 87% on room air per EMS in the emergency department patient have a CT of the head was negative for any acute finding CT of the C- spine is also negative and patient CT of the chest primus continues with the pulmonary mass Patient having no other broken injury when I saw the patient on the floor patient is back to the baseline denied any chest pain denied any shortness of the breath patient's currently in the room air with a 94%'s Patient also have a questionable pneumonia versus infections with a possible UTI with the lactic acid is 2.4 and patient's white count was 12 Patient's otherwise denied any chest pain denied any shortness of the breath Past Medical History Cardiac Medical History: Reports: Congestive Heart Failure, Coronary Artery Disease, Hyperlipidema, Hypertension Denies: Atrial Fibrillation, Myocardial Infarction, Peripheral Vascular Disease, Pulmonary Embolism, Heart Murmur Pulmonary Medical History: Reports: Bronchitis, Chronic Obstructive Pulmonary Disease (COPD), Pneumonia Denies: Asthma, Respiratory Failure, Sleep Apnea, Tuberculosis Neurological Medical History: Reports: Ischemic CVA, Seizures Endocrine Medical History: Reports: Diabetes Mellitus Type 2 Renal/ Medical History: Reports: Chronic Kidney Disease Denies: End Stage Renal Disease Malignancy Medical History: Denies: Lung Cancer GI Medical History: Reports: Gastroesophageal Reflux Disease Denies: Crohn's Disease, Ulcerative Colitis Musculoskeltal Medical History: Reports: Arthritis Denies: Fibromyalgia Psychiatric Medical History: Reports: Dementia, Depression - anxiety Traumatic Medical History: Reports: Traumatic Brain Injury Hematology: Denies: Sickle Cell Disease Infectious Medical History: Denies: Clostridium Difficile Past Surgical History Past Surgical History: Reports: Pacemaker Social History Smoking Status: Unknown if Ever Smoked Frequency of Alcohol Use: None Hx Recreational Drug Use: No Drugs: None Hx Prescription Drug Abuse: No - Advance Directive Resuscitation Status: Full Code Family History Family History: Reviewed & Not Pertinent, Arthritis Parental Family History Reviewed: Yes Children Family History Reviewed: Yes Sibling(s) Family History Reviewed.: Yes Medication/Allergy Allergies/Adverse Reactions: No Known Allergies Allergy (Unverified 12/06/11 18:45) Review of Systems ROS unobtainable: Due to mental status All systems: reviewed and no additional remarkable complaints except as stated Physical Exam Vital Signs: Temp Pulse Resp BP Pulse Ox 98.4 F 80 22 H 121/67 93 07/26/18 03:00 07/26/18 03:00 07/26/18 03:00 07/26/18 03:00 07/26/18 03:00 Intake & Output 07/25/18 07/26/18 07/27/18 06:59 06:59 06:59 Intake Total 1100 Output Total 100 Balance 1000 Weight 60.3 kg General appearance: PRESENT: no acute distress Head exam: PRESENT: atraumatic, normocephalic Eye exam: PRESENT: conjunctiva pink, EOMI, PERRLA. ABSENT: scleral icterus Ear exam: PRESENT: normal external ear exam Mouth exam: PRESENT: moist, tongue midline Neck exam: PRESENT: full ROM. ABSENT: carotid bruit, JVD, lymphadenopathy, thyromegaly Respiratory exam: PRESENT: clear to auscultation charley Cardiovascular exam: PRESENT: RRR. ABSENT: diastolic murmur, rubs, systolic murmur Pulses: PRESENT: normal dorsalis pedis pul, +2 pedal pulses bilateral Vascular exam: PRESENT: normal capillary refill GI/Abdominal exam: PRESENT: normal bowel sounds, soft. ABSENT: distended, guarding, mass, organolmegaly, rebound, tenderness Rectal exam: PRESENT: deferred Extremities exam: ABSENT: pedal edema Neurological exam: PRESENT: alert, awake, oriented to person. ABSENT: motor sensory deficit Additional comments: Right-sided old stroke weakness Psychiatric exam: PRESENT: appropriate affect, normal mood. ABSENT: homicidal ideation, suicidal ideation Skin exam: PRESENT: dry, intact, warm. ABSENT: cyanosis, rash Results Laboratory Results: 07/26/18 07:15 07/26/18 07:15 07/26/18 07/26/18 07/26/18 00:54 01:30 07:15 WBC 9.8 RBC 4.75 Hgb 15.4 D Hct 46.6 MCV 98 H MCH 32.3 MCHC 33.0 RDW 15.9 H Plt Count 632 H Seg Neutrophils % Not Reportable Lymphocytes % Not Reportable Monocytes % Not Reportable Eosinophils % Not Reportable Basophils % Not Reportable Absolute Neutrophils Not Reportable Absolute Lymphocytes Not Reportable Absolute Monocytes Not Reportable Absolute Eosinophils Not Reportable Absolute Basophils Not Reportable Sodium Potassium Chloride Carbon Dioxide Anion Gap BUN Creatinine Est GFR ( Amer) Est GFR (Non-Af Amer) Glucose Lactic Acid 2.7 H Calcium Magnesium Total Bilirubin AST ALT Alkaline Phosphatase Total Protein Albumin Urine Color STRAW Urine Appearance CLEAR Urine pH 5.0 Ur Specific [place] 1.006 Urine Protein NEGATIVE Urine Glucose (UA) NEGATIVE Urine Ketones NEGATIVE Urine Blood NEGATIVE Urine Nitrite NEGATIVE Ur Leukocyte Esterase NEGATIVE Urine WBC (Auto) 0 Urine RBC (Auto) 1 07/26/18 07:15 WBC RBC Hgb Hct MCV MCH MCHC RDW Plt Count Seg Neutrophils % Lymphocytes % Monocytes % Eosinophils % Basophils % Absolute Neutrophils Absolute Lymphocytes Absolute Monocytes Absolute Eosinophils Absolute Basophils Sodium 140.2 Potassium 4.8 Chloride 109 H Carbon Dioxide 22 Anion Gap 9 BUN 30 H Creatinine 1.03 Est GFR ( Amer) > 60 Est GFR (Non-Af Amer) > 60 Glucose 132 H Lactic Acid Calcium 8.8 Magnesium 2.5 H Total Bilirubin 0.5 AST 42 ALT 36 Alkaline Phosphatase 44 Total Protein 5.9 L Albumin 3.2 L Urine Color Urine Appearance Urine pH Ur Specific [place] Urine Protein Urine Glucose (UA) Urine Ketones Urine Blood Urine Nitrite Ur Leukocyte Esterase Urine WBC (Auto) Urine RBC (Auto) 07/26/18 07/26/18 07/26/18 00:54 00:54 07:15 Creatine Kinase 577 H Cancelled CK-MB (CK-2) 6.06 H Troponin I 0.093 NT-Pro-B Natriuret Pep 07/26/18 07/26/18 07/26/18 07:15 07:15 07:15 Creatine Kinase 445 H CK-MB (CK-2) 5.00 H Troponin I 0.075 NT-Pro-B Natriuret Pep 40598 H Cancelled Impressions: Chest X-Ray 07/25/18 00:00 IMPRESSION: Cardiomegaly without CHF. Cervical Spine CT 07/25/18 20:26 IMPRESSION: 1. No acute intracranial abnormality. 2. No acute fracture or static listhesis of the cervical spine. Head CT 07/25/18 20:26 IMPRESSION: 1. No acute intracranial abnormality. 2. No acute fracture or static listhesis of the cervical spine. Chest CT 07/25/18 21:21 IMPRESSION: There are underlying changes of COPD. In the right posteromedial upper lobe there is a semilunar mass measuring 2.2 x 1.2 x 1.3 cm, abutting the superior medial aspect of the right major fissure. This may represent a true lung base mass or may represent loculated pleural fluid in this portion of the right major fissure. Further evaluation of this finding with a contrast-enhanced CT of the chest is requested TECHNICAL DOCUMENTATION: Quality ID # [id number]: Final reports with documentation of one or more dose reduction techniques (e.g., Automated exposure control, adjustment of the mA and/or kV according to patient size, use of iterative reconstruction technique) 2010 [employer]- All Rights Reserved Assessment & Plan - Diagnosis (1) Congestive heart failure Qualifiers: Heart failure type: diastolic Heart failure chronicity: acute Qualified Code(s): I50.31 - Acute diastolic (congestive) heart failure Is this a current diagnosis for this admission?: Yes Plan: Will get the 2D echocardiogram continues to IV Lasix (2) Sepsis Qualifiers: Sepsis type: sepsis due to unspecified organism Qualified Code(s): A41.9 - Sepsis, unspecified organism Is this a current diagnosis for this admission?: Yes Plan: Will wait for the all the cultures possible underlying pneumonia also will continues with IV antibiotic (3) Acute exacerbation of chronic obstructive pulmonary disease (COPD) Is this a current diagnosis for this admission?: Yes Plan: Continues to DuoNeb nebulizer treatments (4) Elevated troponin Is this a current diagnosis for this admission?: Yes Plan: We will consult the cardiology for further evaluations (5) CVA, old, hemiparesis Is this a current diagnosis for this admission?: Yes Plan: CT of the head was all negative (6) Cardiac pacemaker Is this a current diagnosis for this admission?: Yes Plan: Follow with the cardiology (7) Dementia Qualifiers: Dementia type: vascular dementia Dementia behavioral disturbance: with behavioral disturbance Qualified Code(s): F01.51 - Vascular dementia with behavioral disturbance Is this a current diagnosis for this admission?: Yes (8) Fall Qualifiers: Encounter type: initial encounter Qualified Code(s): W19.XXXA - Unspecified fall, initial encounter Is this a current diagnosis for this admission?: Yes Plan: Patient with significant dementia and the patient have a issue with the right- sided weakness from old strokes need of physical therapy and fall precautions (9) Pulmonary mass Is this a current diagnosis for this admission?: Yes Plan: Is currently see a Dr. Han as outpatients (10) Rhabdomyolysis Qualifiers: Rhabdomyolysis type: traumatic Encounter type: initial encounter Qualified Code(s): T79.6XXA - Traumatic ischemia of muscle, initial encounter Is this a current diagnosis for this admission?: Yes Plan: With the recent fall (11) Seizure disorder Is this a current diagnosis for this admission?: Yes Plan: Continues to Ayaz (12) Thrombocytosis Is this a current diagnosis for this admission?: Yes Plan: Patient is currently follow with the Dr. Han as outpatient (13) Benign prostate hyperplasia Qualifiers: Lower urinary tract symptom presence: symptoms absent Qualified Code(s): N40.0 - Benign prostatic hyperplasia without lower urinary tract symptoms Is this a current diagnosis for this admission?: Yes (14) CAD (coronary artery disease) Qualifiers: Coronary Disease-Associated Artery/Lesion type: unspecified vessel or lesion type Associated angina: without angina Is this a current diagnosis for this admission?: Yes - Time Time Spent: 50 to 70 Minutes Medications reviewed and adjusted accordingly: Yes Anticipated discharge: SNF Within: Other - Inpatient Certification Based on my medical assessment, after consideration of the patient's comorbidities, presenting symptoms, or acuity I expect that the services needed warrant INPATIENT care.: Yes Medical Necessity: Need Close Monitoring Due to Risk of Patient Decompensation, Need for IV Antibiotics Post Hospital Care: D/C [employer] Documentation - Plan Summary Plan Summary: Admit the patient's was in the telemetry bed consult the cardiology get the echocardiogram continues to IV antibiotics wait for the cultures and continues to monitor the patient patient is currently a DNR as per discussed with the patient's family
[2018-07-26] MEDS ORDERED: LEVETIRACETAM 1000 MG PO SCH (10:00)
[2018-07-26] MEDS: ACETAZOLAMIDE 250 MG TABLET PO SCH (10:05)
[2018-07-26] MEDS: LEVETIRACETAM 500 MG TABLET PO SCH (10:05)
[2018-07-26] MEDS: TAMSULOSIN HCL 0.4 MG CAP.SR.24H PO SCH (10:05)
[2018-07-26] MEDS: ENOXAPARIN SODIUM INJ 30 MG/0.3 ML DISP.SYRIN SUBCUT SCH (10:06)
[2018-07-26] MEDS: ALLOPURINOL 100 MG TABLET PO SCH (10:06)
[2018-07-26] MEDS: ASPIRIN 81 MG TABLET, ENT COATED PO SCH (10:07)
[2018-07-26] MEDS: CEFEPIME 2 GM/D5W RTU 2 GM/50 ML RTUPB IV SCH ×2 (10:08→21:11)
--- NOTE | 2018-07-26 10:13 | EKG REPORT ---
SEVERITY:- ABNORMAL ECG - VENTRICULAR-PACED COMPLEXES : Confirmed by: Radha Gonogra MD 26-Jul-2018 10:11:45
[2018-07-26 14:33] LABS: CREATINE KINASE MB 4.23 ng/mL (<4.55); TROPONIN I 0.063 ng/mL
--- NOTE | 2018-07-26 18:08 | XCELERA REPORT ---
[address] [address] Transthoracic Echocardiogram Report Name: HEMANT GRIFFITH Age: 87 yrs Gender: Male : 1930 Patient Status: Inpatient Patient Location: [address] [place], [place] [address]A Study Date: 07/26/2018 10:17 AM Weight: 132 lb Procedure: A complete two-dimensional transthoracic echocardiogram was performed (2D, M-mode, spectral and color flow Doppler). The study was technically difficult with many images being suboptimal in quality. Reason For Study: chf Ordering Physician: ALANNA MONTE Performed By: Luma Higginbotham Interpretation Summary LVEF severely depressed LV is mildly dilated. Left atrium is mildly dilated. Mild to moderate mitral regurgitation noted. Moderate tricuspid regurgitation noted. Moderate to severe pulmonary hypertension noted. IVC noted to be mildly dilated. Incidental note of pacemaker/defibrillator leads noted traversing the tricuspid valve. MMode/2D Measurements & Calculations RVDd: 1.8 cm LVIDd: 5.7 cm FS: 14.5 % Ao root diam: 2.8 cm IVSd: 0.83 cm LVIDs: 4.9 cm EDV(Teich): 159.1 ml Ao root area: 6.2 cm2 LVPWd: 0.84 cm ESV(Teich): 110.6 ml EF(Teich): 30.5 % LA dimension: 3.4 cm Doppler Measurements & Calculations MV E max chauncey: MV P1/2t max chauncey: Ao V2 max: LV V1 max P.6 cm/sec 63.6 cm/sec 109.3 cm/sec 3.3 mmHg MV A max chauncey: MV P1/2t: 45.1 msec Ao max PG: LV V1 max: 71.0 cm/sec 4.8 mmHg 91.4 cm/sec MV E/A: 0.90 MVA(P1/2t): 4.9 cm2 MV dec slope: 413.2 cm/sec2 MV dec time: 0.18 sec PA V2 max: PI end-d chauncey: TR max chauncey: MV P1/2t-pr_phl: 76.5 cm/sec 146.6 cm/sec 325.8 cm/sec 45.1 msec PA max PG: TR max P.3 mmHg 42.5 mmHg Left Ventricle The left ventricle is mildly dilated. Left ventricular systolic function is moderate to severely reduced. The Ejection Fraction estimate is 30-35%. Doppler measurements suggest pseudonormalized left ventricular relaxation, which is associated with grade II/IV or mild to moderate diastolic dysfunction. Severe diffuse hypokinesia noted. Inferior and inferolateral wall appear akinetic. Right Ventricle The right ventricle is grossly normal size. The right ventricular systolic function is normal. Atria The right atrium is normal in size. The left atrium is mildly dilated. Interarterial septum not well visualized and not well dopplered. Cannot comment on ASD/PFO presence. Mitral Valve The mitral valve leaflets are sclerotic, but show no functional abnormalities. There is no mitral valve stenosis. There is a moderate amount of mitral regurgitation. Aortic Valve The aortic valve is not well visualized secondary to technical limitations. There is no aortic valve stenosis. There is a trace to mild amount of aortic regurgitation. Tricuspid Valve The tricuspid valve is not well visualized, but is grossly normal. There is no tricuspid stenosis. There is a moderate amount of tricuspid regurgitation. There is moderate to severe pulmonary hypertension by echo. Right ventricular systolic pressure is estimated to be elevated at 50-60mmHg. Pulmonic Valve The pulmonic valve is not well visualized. Great Vessels The aortic root is not well visualized but is probably normal size. The inferior vena cava appeared dilated and decreased < 50% with respiration (RAP 15-20 mmHg). Effusions There is no pericardial effusion. : ALANNA MONTE > Saira Maldonado
--- NOTE | 2018-07-26 20:07 | PDOC CONSULTATION ---
Consultation Consult Date: 07/26/18 Attending physician:: ALANNA MONTE Consult reason:: Cardiomyopathy, respiratory distress History of Present Illness Admission Date/PCP: 07/25/18 21:25 ALANNA MONTE MD Patient complains of: Shortness of breath History of Present Illness: HEMANT GRIFFITH is a 87 year old male with a significant history of the dementia history of the coronary artery disease cardiac pacemaker and a history of the pulmonary mass and multiple medical issues just recently admitted by the UTI and discharge couple of days in a senior care brought to the ER by EMS because of the history of the couple of fall without any witness In the senior care Patients also hypoxic to 87% on room air per EMS in the emergency department patient have a CT of the head was negative for any acute finding CT of the C- spine is also negative and patient CT of the chest primus continues with the pulmonary mass Patient having no other broken injury when I saw the patient on the floor patient is back to the baseline denied any chest pain denied any shortness of the breath patient's currently in the room air with a 94%'s Patient also have a questionable pneumonia versus infections with a possible UTI with the lactic acid is 2.4 and patient's white count was 12 Patient's otherwise denied any chest pain denied any shortness of the breath Patient had a 2D echocardiogram which showed severely depressed LVEF. Patient noted to be in mild respiratory distress with some gurgling sound. There is also some concern whether patient's pacemaker defibrillator is working normally or not. Past Medical History Cardiac Medical History: Reports: Congestive Heart Failure, Coronary Artery Disease, Hyperlipidema, Hypertension Denies: Atrial Fibrillation, Myocardial Infarction, Peripheral Vascular Disease, Pulmonary Embolism, Heart Murmur Pulmonary Medical History: Reports: Bronchitis, Chronic Obstructive Pulmonary Disease (COPD), Pneumonia Denies: Asthma, Respiratory Failure, Sleep Apnea, Tuberculosis Neurological Medical History: Reports: Ischemic CVA, Seizures Endocrine Medical History: Reports: Diabetes Mellitus Type 2 Renal/ Medical History: Reports: Chronic Kidney Disease Denies: End Stage Renal Disease Malignancy Medical History: Denies: Lung Cancer GI Medical History: Reports: Gastroesophageal Reflux Disease Denies: Crohn's Disease, Ulcerative Colitis Musculoskeltal Medical History: Reports: Arthritis Denies: Fibromyalgia Psychiatric Medical History: Reports: Dementia, Depression - anxiety Traumatic Medical History: Reports: Traumatic Brain Injury Hematology: Denies: Sickle Cell Disease Infectious Medical History: Denies: Clostridium Difficile Past Surgical History Past Surgical History: Reports: Internal Defibrillator, Pacemaker Social History Information Source: Relative Smoking Status: Unknown if Ever Smoked Frequency of Alcohol Use: None Hx Recreational Drug Use: No Drugs: None Hx Prescription Drug Abuse: No - Advance Directive Resuscitation Status: Do Not Resuscitate Surrogate healthcare decision maker:: Patient's daughter at the surrogate decision-maker Family History Family History: Reviewed & Not Pertinent, Arthritis Parental Family History Reviewed: Yes Children Family History Reviewed: Yes Sibling(s) Family History Reviewed.: Yes Medication/Allergy Home Medications: Acetazolamide [Diamox 250 mg Tab] 250 mg PO DAILY 07/26/18 Allopurinol [Zyloprim 100 mg Tablet] 100 mg PO DAILY 07/26/18 Aspirin [Aspirin EC] 81 mg PO DAILY 07/26/18 Donepezil HCl [Aricept] 10 mg PO QHS 07/26/18 Furosemide [Lasix 20 mg Tablet] 20 mg PO DAILYP PRN 07/26/18 Ipratropium/Albuterol Sulfate [Duoneb 3 ml Ampul] 1 vial NEB Q6HP PRN 07/26/18 Levetiracetam [Keppra] 1,000 mg PO DAILY 07/26/18 Omeprazole 40 mg PO DAILY 07/26/18 Simvastatin [Zocor 40 mg Tablet] 40 mg PO QHS 07/26/18 Tamsulosin HCl [Flomax 0.4 mg Cap.sr] 0.4 mg PO DAILY 07/26/18 Allergies/Adverse Reactions: No Known Allergies Allergy (Unverified 12/06/11 18:45) Review of Systems ROS unobtainable: Due to mental status Physical Exam Vital Signs: Temp Pulse Resp BP Pulse Ox 97.5 F 71 17 113/65 94 07/26/18 12:00 07/26/18 14:00 07/26/18 13:54 07/26/18 12:00 07/26/18 13:54 Intake & Output 07/25/18 07/26/18 07/27/18 06:59 06:59 06:59 Intake Total 1100 100 Output Total 100 150 Balance 1000 -50 Weight 60.3 kg 60.3 kg Exam: GENERAL: well-nourished and in no acute distress. Patient is alert but not oriented to person only HEAD: Atraumatic, normocephalic. EYES: Pupils equal round and reactive to light, extraocular movements intact, sclera anicteric, conjunctiva are normal. ENT: TMs normal, nares patent, oropharynx clear without exudates. Moist mucous membranes. No oral ulcerations or bleeding gums noted NECK: supple without lymphadenopathy or JVD. Trachea is central. No cervical or axillary lymphadenopathy noted. Carotids are 2+ LUNGS: Breath sounds bibasilar fine crackles at bases. No significant dullness noted. CHEST: Palpation of chest wall shows no significant chest wall tenderness. HEART: [place] MSWS, No PSH, 2/6 TAM[place]A aortic area, 1/6 [place] systolic murmur mitral area, rubs or gallops. ABDOMEN: Soft, no significant tenderness appreciated, normoactive bowel sounds. No guarding, no rebound. No rigidity noted . No masses appreciated. EXTREMITIES: Pedal pulses are 1-2+, no calf tenderness noted, Trace + pedal edema noted. No clubbing or cyanosis. NEUROLOGICAL: Patient is alert but is not able to participate in neurological exam because of patient's current mental status PSYCH: Patient cannot participate in a neurologic and psych exam because of the patient's current mental status SKIN: No significant ecchymosis, rash, ulcerations or signs of pruritus noted. MUSCULOSKELETAL EXAM: No significant joint swelling noted. Results Laboratory Results: 07/26/18 07:15 07/26/18 07:15 07/26/18 07/26/18 07/26/18 00:54 01:30 07:15 WBC 9.8 RBC 4.75 Hgb 15.4 D Hct 46.6 MCV 98 H MCH 32.3 MCHC 33.0 RDW 15.9 H Plt Count 632 H Seg Neutrophils % Not Reportable Lymphocytes % Not Reportable Monocytes % Not Reportable Eosinophils % Not Reportable Basophils % Not Reportable Absolute Neutrophils Not Reportable Absolute Lymphocytes Not Reportable Absolute Monocytes Not Reportable Absolute Eosinophils Not Reportable Absolute Basophils Not Reportable Sodium Potassium Chloride Carbon Dioxide Anion Gap BUN Creatinine Est GFR ( Amer) Est GFR (Non-Af Amer) Glucose Lactic Acid 2.7 H Calcium Magnesium Total Bilirubin AST ALT Alkaline Phosphatase Total Protein Albumin Urine Color STRAW Urine Appearance CLEAR Urine pH 5.0 Ur Specific Chase 1.006 Urine Protein NEGATIVE Urine Glucose (UA) NEGATIVE Urine Ketones NEGATIVE Urine Blood NEGATIVE Urine Nitrite NEGATIVE Ur Leukocyte Esterase NEGATIVE Urine WBC (Auto) 0 Urine RBC (Auto) 1 07/26/18 07:15 WBC RBC Hgb Hct MCV MCH MCHC RDW Plt Count Seg Neutrophils % Lymphocytes % Monocytes % Eosinophils % Basophils % Absolute Neutrophils Absolute Lymphocytes Absolute Monocytes Absolute Eosinophils Absolute Basophils Sodium 140.2 Potassium 4.8 Chloride 109 H Carbon Dioxide 22 Anion Gap 9 BUN 30 H Creatinine 1.03 Est GFR ( Amer) > 60 Est GFR (Non-Af Amer) > 60 Glucose 132 H Lactic Acid Calcium 8.8 Magnesium 2.5 H Total Bilirubin 0.5 AST 42 ALT 36 Alkaline Phosphatase 44 Total Protein 5.9 L Albumin 3.2 L Urine Color Urine Appearance Urine pH Ur Specific Chase Urine Protein Urine Glucose (UA) Urine Ketones Urine Blood Urine Nitrite Ur Leukocyte Esterase Urine WBC (Auto) Urine RBC (Auto) 07/26/18 07/26/18 07/26/18 00:54 00:54 07:15 Creatine Kinase 577 H Cancelled CK-MB (CK-2) 6.06 H Troponin I 0.093 NT-Pro-B Natriuret Pep 07/26/18 07/26/18 07/26/18 07:15 07:15 07:15 Creatine Kinase 445 H CK-MB (CK-2) 5.00 H Troponin I 0.075 NT-Pro-B Natriuret Pep [id number] H Cancelled 07/26/18 07/26/18 13:56 13:56 Creatine Kinase 383 H CK-MB (CK-2) 4.23 Troponin I 0.063 NT-Pro-B Natriuret Pep EKG Comments: Multiple telemetry strips reviewed. It shows a sensed V paced beats. Impressions: Chest X-Ray 07/25/18 00:00 IMPRESSION: Cardiomegaly without CHF. Cervical Spine CT 07/25/18 20:26 IMPRESSION: 1. No acute intracranial abnormality. 2. No acute fracture or static listhesis of the cervical spine. Head CT 07/25/18 20:26 IMPRESSION: 1. No acute intracranial abnormality. 2. No acute fracture or static listhesis of the cervical spine. Chest CT 07/25/18 21:21 IMPRESSION: There are underlying changes of COPD. In the right posteromedial upper lobe there is a semilunar mass measuring 2.2 x 1.2 x 1.3 cm, abutting the superior medial aspect of the right major fissure. This may represent a true lung base mass or may represent loculated pleural fluid in this portion of the right major fissure. Further evaluation of this finding with a contrast-enhanced CT of the chest is requested TECHNICAL DOCUMENTATION: Quality ID # 436: Final reports with documentation of one or more dose reduction techniques (e.g., Automated exposure control, adjustment of the mA and/or kV according to patient size, use of iterative reconstruction technique) 2010 [employer]- All Rights Reserved Assessment & Plan - Diagnosis (1) Congestive heart failure Qualifiers: Heart failure type: diastolic Heart failure chronicity: acute Qualified Code(s): I50.31 - Acute diastolic (congestive) heart failure Is this a current diagnosis for this admission?: Yes (2) Chronic obstructive pulmonary disease Qualifiers: COPD type: unspecified COPD Qualified Code(s): J44.9 - Chronic obstructive pulmonary disease, unspecified Is this a current diagnosis for this admission?: Yes (3) Dementia Qualifiers: Dementia type: unspecified type Dementia behavioral disturbance: without behavioral disturbance Qualified Code(s): F03.90 - Unspecified dementia without behavioral disturbance Is this a current diagnosis for this admission?: Yes (4) CAD (coronary artery disease) Qualifiers: Coronary Disease-Associated Artery/Lesion type: unspecified vessel or lesion type Associated angina: without angina Is this a current diagnosis for this admission?: Yes (5) Hyperlipemia Qualifiers: Hyperlipidemia type: unspecified Qualified Code(s): E78.5 - Hyperlipidemia , unspecified Is this a current diagnosis for this admission?: Yes (6) Hypertension Qualifiers: Hypertension type: essential hypertension Qualified Code(s): I10 - Essential (primary) hypertension Is this a current diagnosis for this admission?: Yes (7) Cardiac defibrillator in situ Is this a current diagnosis for this admission?: Yes - Notes Notes: Congestive heart failure: This is related to severe systolic dysfunction along with diastolic dysfunction. Recommend diuretic therapy. Patient will also benefit on entresto/NOELLE inhibitor/ARB therapy, beta-kian therapy, hydralazine nitrate therapy depending on his tolerability. Overall prognosis is however guarded because of patient's baseline poor status. COPD: This seems to be significant problems. Continue current therapy. CAD: 2D echo does show wall motion abnormalities. At this point will recommend medical management. Patient not a candidate for heart catheterization. Hyperlipidemia: Continue statin therapy Hypertension: Recommend liberal blood pressure control. Cardiac defibrillator in situ: Patient's daughter in the room. It seems patient defibrillator was interrogated during last admission and was noted to have depletion of the generator. At that time the family did not want patient to undergo battery change out procedure. They still do not want to do a defibrillator generator change out. Telemetry strips reviewed however shows normal pacing functioning. Currently patient been made a DNR. - Time Time Spent: 30 to 50 Minutes - CODE STATUS : was discussed, patient remains DO NOT RESUSCITATE. Surrogate decision-maker unchanged. Multiple medical problems were addressed. More than 50% of the time spent coordinating care, discussing management plans with involved caregivers. Management plans discussed with involved personnels. Medical decision making was of moderate to high complexity, patient's has multiple comorbidities. Medications reviewed and adjusted accordingly: Yes
[2018-07-26] MEDS: DONEPEZIL HCL 5 MG TABLET PO SCH ×2 (21:12)
[2018-07-26] MEDS: SIMVASTATIN 40 MG TABLET PO SCH ×2 (21:12)
[2018-07-27] MEDS: IPRATROPIUM/ALBUTEROL 0.5-2.5 MG/3 ML AMPUL NEB SCH ×4 (02:17→19:47)
[2018-07-27 04:11] LABS: HEMATOCRIT 47.4 % (37.9-51.0); HEMOGLOBIN 15.5 g/dL (13.5-17.0); MEAN CORPUSCULAR HEMOGLOBIN 31.8 pg (27.0-33.4); MEAN CORPUSCULAR HGB CONC 32.6 g/dL (32.0-36.0); MEAN CORPUSCULAR VOLUME 98 fl (80-97); PLATELET COUNT 674 10^3/uL (150-450); RED BLOOD COUNT 4.86 10^6/uL (4.35-5.55); RED CELL DISTRIBUTION WIDTH 15.7 % (11.5-14.0); WHITE BLOOD COUNT 9.4 10^3/uL (4.0-10.5)
[2018-07-27 04:28] LABS: ABSOLUTE LYMPHOCYTES# (MANUAL) 0.9 10^3/uL (0.5-4.7); ABSOLUTE MONOCYTES # (MANUAL) 0.8 10^3/uL (0.1-1.4); ABSOLUTE NEUTROPHILS# (MANUAL) 7.6 10^3/uL (1.7-8.2); BAND NEUTROPHILS % (MANUAL) 2 % (3-5); BASOPHILS % (MANUAL) 0 % (0-2); EOSINOPHILS % (MANUAL) 0 % (0-6); LYMPHOCYTES % (MANUAL) 10 % (13-45); MONOCYTES % (MANUAL) 9 % (3-13); SEGMENTED NEUTROPHILS % (MAN) 79 % (42-78); TOTAL CELLS COUNTED 100
[2018-07-27 04:29] LABS: ANISOCYTOSIS 1+; PLATELET COMMENT INCREASED
[2018-07-27] MEDS: LANSOPRAZOLE 30 MG TAB.RAP.DR PO SCH (05:46)
[2018-07-27] MEDS: CEFEPIME 2 GM/D5W RTU 2 GM/50 ML RTUPB IV SCH ×2 (09:21→21:41)
[2018-07-27] MEDS: ENOXAPARIN SODIUM INJ 30 MG/0.3 ML DISP.SYRIN SUBCUT SCH (09:21)
[2018-07-27] MEDS: LEVETIRACETAM 500 MG TABLET PO SCH (09:21)
[2018-07-27] MEDS: FUROSEMIDE INJ/PF 20 MG/2 ML SDV IV SCH (09:21)
[2018-07-27] MEDS: ASPIRIN 81 MG TABLET, ENT COATED PO SCH (09:21)
[2018-07-27] MEDS: ACETAZOLAMIDE 250 MG TABLET PO SCH (09:21)
[2018-07-27] MEDS: TAMSULOSIN HCL 0.4 MG CAP.SR.24H PO SCH (09:21)
[2018-07-27] MEDS: ALLOPURINOL 100 MG TABLET PO SCH (09:21)
--- NOTE | 2018-07-27 10:07 | PDOC PROGRESS REPORT ---
Subjective Progress Note for:: 07/27/18 Subjective:: Patient is currently doing well Denied any chest pain denied any shortness of the breath Since echocardiogram suggest a low EF and patient is currently on IV Lasix Seen by the activities director Reason For Visit: SEPSIS, ASPIRATION PNEUMONIA Physical Exam Vital Signs: Temp Pulse Resp BP Pulse Ox 99.1 F 81 20 112/71 96 07/27/18 07:53 07/27/18 07:53 07/27/18 07:53 07/27/18 07:53 07/27/18 07:53 Intake & Output 07/26/18 07/27/18 07/28/18 06:59 06:59 06:59 Intake Total 1100 150 100 Output Total 100 150 Balance 1000 0 100 Weight 60.3 kg 59 kg General appearance: PRESENT: no acute distress, well-developed, well-nourished Head exam: PRESENT: atraumatic, normocephalic Eye exam: PRESENT: conjunctiva pink, EOMI, PERRLA. ABSENT: scleral icterus Ear exam: PRESENT: normal external ear exam Mouth exam: PRESENT: moist, tongue midline Neck exam: PRESENT: full ROM. ABSENT: carotid bruit, JVD, lymphadenopathy, thyromegaly Respiratory exam: PRESENT: clear to auscultation charley Cardiovascular exam: PRESENT: RRR. ABSENT: diastolic murmur, rubs, systolic murmur Pulses: PRESENT: normal dorsalis pedis pul, +2 pedal pulses bilateral Vascular exam: PRESENT: normal capillary refill GI/Abdominal exam: PRESENT: normal bowel sounds, soft. ABSENT: distended, guarding, mass, organolmegaly, rebound, tenderness Rectal exam: PRESENT: deferred Extremities exam: ABSENT: pedal edema Neurological exam: PRESENT: alert, awake, oriented to person, oriented to place , oriented to time, oriented to situation, CN II-XII grossly intact. ABSENT: motor sensory deficit Psychiatric exam: PRESENT: appropriate affect, normal mood. ABSENT: homicidal ideation, suicidal ideation Skin exam: PRESENT: dry, intact, warm. ABSENT: cyanosis, rash Results Laboratory Results: 07/27/18 03:37 07/26/18 07:15 07/27/18 07/27/18 03:37 03:37 WBC 9.4 RBC 4.86 Hgb 15.5 Hct 47.4 MCV 98 H MCH 31.8 MCHC 32.6 RDW 15.7 H Plt Count 674 H Seg Neutrophils % Not Reportable Lymphocytes % Not Reportable Monocytes % Not Reportable Eosinophils % Not Reportable Basophils % Not Reportable Absolute Neutrophils Not Reportable Absolute Lymphocytes Not Reportable Absolute Monocytes Not Reportable Absolute Eosinophils Not Reportable Absolute Basophils Not Reportable Magnesium 2.3 07/26/18 07/26/18 07/26/18 00:54 00:54 07:15 Creatine Kinase 577 H Cancelled CK-MB (CK-2) 6.06 H Troponin I 0.093 NT-Pro-B Natriuret Pep 07/26/18 07/26/18 07/26/18 07:15 07:15 07:15 Creatine Kinase 445 H CK-MB (CK-2) 5.00 H Troponin I 0.075 NT-Pro-B Natriuret Pep [id number] H Cancelled 07/26/18 07/26/18 13:56 13:56 Creatine Kinase 383 H CK-MB (CK-2) 4.23 Troponin I 0.063 NT-Pro-B Natriuret Pep Impressions: Chest X-Ray 07/25/18 00:00 IMPRESSION: Cardiomegaly without CHF. Cervical Spine CT 07/25/18 20:26 IMPRESSION: 1. No acute intracranial abnormality. 2. No acute fracture or static listhesis of the cervical spine. Head CT 07/25/18 20:26 IMPRESSION: 1. No acute intracranial abnormality. 2. No acute fracture or static listhesis of the cervical spine. Chest CT 07/25/18 21:21 IMPRESSION: There are underlying changes of COPD. In the right posteromedial upper lobe there is a semilunar mass measuring 2.2 x 1.2 x 1.3 cm, abutting the superior medial aspect of the right major fissure. This may represent a true lung base mass or may represent loculated pleural fluid in this portion of the right major fissure. Further evaluation of this finding with a contrast-enhanced CT of the chest is requested TECHNICAL DOCUMENTATION: Quality ID # 436: Final reports with documentation of one or more dose reduction techniques (e.g., Automated exposure control, adjustment of the mA and/or kV according to patient size, use of iterative reconstruction technique) 2010 [employer]- All Rights Reserved Assessment & Plan - Diagnosis (1) Congestive heart failure Qualifiers: Heart failure type: diastolic Heart failure chronicity: acute Qualified Code(s): I50.31 - Acute diastolic (congestive) heart failure Is this a current diagnosis for this admission?: Yes Plan: With the continues to Lasix (2) Sepsis Qualifiers: Sepsis type: sepsis due to unspecified organism Qualified Code(s): A41.9 - Sepsis, unspecified organism Is this a current diagnosis for this admission?: Yes Plan: Waiting for the urine culture (3) Acute exacerbation of chronic obstructive pulmonary disease (COPD) Is this a current diagnosis for this admission?: Yes Plan: Continues to DuoNeb nebulizer treatments (4) Elevated troponin Is this a current diagnosis for this admission?: Yes Plan: Follow-up with cardiology (5) CVA, old, hemiparesis Is this a current diagnosis for this admission?: Yes Plan: CT of the head was all negative (6) Cardiac pacemaker Is this a current diagnosis for this admission?: Yes Plan: Follow with cardiology (7) Dementia Qualifiers: Dementia type: unspecified type Dementia behavioral disturbance: without behavioral disturbance Qualified Code(s): F03.90 - Unspecified dementia without behavioral disturbance Is this a current diagnosis for this admission?: Yes Plan: Continues current medication (8) Fall Qualifiers: Encounter type: initial encounter Qualified Code(s): W19.XXXA - Unspecified fall, initial encounter Is this a current diagnosis for this admission?: Yes Plan: Patient with significant dementia and the patient have a issue with the right- sided weakness from old strokes need of physical therapy and fall precautions (9) Pulmonary mass Is this a current diagnosis for this admission?: Yes Plan: Is currently see a Dr. Han as outpatients (10) Rhabdomyolysis Qualifiers: Rhabdomyolysis type: traumatic Encounter type: initial encounter Qualified Code(s): T79.6XXA - Traumatic ischemia of muscle, initial encounter Is this a current diagnosis for this admission?: Yes (11) Seizure disorder Is this a current diagnosis for this admission?: Yes Plan: Continues to Ayaz (12) Thrombocytosis Is this a current diagnosis for this admission?: Yes Plan: Patient is currently follow with the Dr. Han as outpatient (13) Benign prostate hyperplasia Qualifiers: Lower urinary tract symptom presence: symptoms absent Qualified Code(s): N40.0 - Benign prostatic hyperplasia without lower urinary tract symptoms Is this a current diagnosis for this admission?: Yes (14) CAD (coronary artery disease) Qualifiers: Coronary Disease-Associated Artery/Lesion type: unspecified vessel or lesion type Associated angina: without angina Is this a current diagnosis for this admission?: Yes - Time Time Spent with patient: 15-24 minutes Medications reviewed and adjusted accordingly: Yes Within: Other - Inpatient Certification Medical Necessity: Need Close Monitoring Due to Risk of Patient Decompensation Post Hospital Care: D/C Physician Scribe Documentation - Plan Summary Plan Summary: Changed IV Lasix to the p.o. Lasix twice a day
--- NOTE | 2018-07-27 13:29 | Physician Advisory Note ---
Physician Advisor ProgressNote .: [facility] medical [facility] for this patient. Physician Advisor Statement: Very nice documentation of chronic hemiparesis. Please consider documenting, if you agree: 1. "Acute Hypoxemic Respiratory Failure, evidenced by O2 sat 87% for EMS, accessory muscle use & need for O2 to support O2 sats in ED" 2. 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 Sepsis: A. most likely infectious cause (aspir PNA? UTI? ...), & any organ dysfunction due to sepsis B. all supporting evidence for dx +: leukocytosis, tachypnea up to 31, tachycardia, leukocytosis, elevated lactate level. There is (+) hypoxemia (tho' this isn't stated to be due to sepsis , & could potentially be due to another cause in this case) -: "NAD" in ED & H&P, no mention of acutely worsened mental status w/ details, no acute MAP<70 or thrombocytopenia or ANTONETTE or hyperbili 4. S/s supporting dx of "Acute syst/diast CHF", or state if this dx was ruled out. (Initial CXR neg, H&P states lungs CTAB & no pedal edema, CT chest neg, ... ) 5. S/s supporting dx of "aspiration PNA", or state if this dx was ruled out. (H&P doesn't mention any witnessed aspiration episode, CXR neg, H&P states lungs CTAB - after nebs/steroids in ED. Thanks! CK
--- NOTE | 2018-07-27 17:21 | RADIOLOGY REPORT (SQ) ---
EXAM DESCRIPTION: CHEST 2 VIEWS COMPLETED DATE/TIME: 07/27/2018 5:05 pm REASON FOR STUDY: chf/copd COMPARISON: 07/19/2018 EXAM PARAMETERS: NUMBER OF VIEWS: two views TECHNIQUE: Digital Frontal and Lateral radiographic views of the chest acquired. RADIATION DOSE: NA LIMITATIONS: none FINDINGS: LUNGS AND PLEURA: No opacities, masses or pneumothorax. No pleural effusion. MEDIASTINUM AND HILAR STRUCTURES: No masses or contour abnormalities. HEART AND VASCULAR STRUCTURES: Cardiomegaly. BONES: No acute findings. HARDWARE: Pacemaker/defibrillator. OTHER: No other significant finding. IMPRESSION: Cardiomegaly without CHF. TECHNICAL DOCUMENTATION: JOB ID: [id number]- All Rights Reserved Reading location - IP/workstation name: [email or web address]
[2018-07-27] MEDS: DONEPEZIL HCL 5 MG TABLET PO SCH (21:41)
[2018-07-27] MEDS: SIMVASTATIN 40 MG TABLET PO SCH (21:41)
[2018-07-28] MEDS: IPRATROPIUM/ALBUTEROL 0.5-2.5 MG/3 ML AMPUL NEB SCH ×4 (01:57→19:48)
[2018-07-28] MEDS: LANSOPRAZOLE 30 MG TAB.RAP.DR PO SCH (06:07)
[2018-07-28 06:15] LABS: HEMOGLOBIN 15.4 g/dL (13.5-17.0); MEAN CORPUSCULAR HEMOGLOBIN 32.3 pg (27.0-33.4); MEAN CORPUSCULAR HGB CONC 32.8 g/dL (32.0-36.0); MEAN CORPUSCULAR VOLUME 99 fl (80-97); PLATELET COUNT 534 10^3/uL (150-450); RED BLOOD COUNT 4.76 10^6/uL (4.35-5.55); RED CELL DISTRIBUTION WIDTH 15.9 % (11.5-14.0); WHITE BLOOD COUNT 7.7 10^3/uL (4.0-10.5)
[2018-07-28 06:35] LABS: ANION GAP 9 (5-19); BLOOD UREA NITROGEN 22 mg/dL (7-20); CALCIUM 8.4 mg/dL (8.4-10.2); CARBON DIOXIDE 24 mmol/L (22-30); CHLORIDE 106 mmol/L (98-107); GLUCOSE 84 mg/dL (75-110); POTASSIUM 4.1 mmol/L (3.6-5.0); SODIUM 139.2 mmol/L (137-145)
[2018-07-28 06:46] LABS: ABSOLUTE MONOCYTES # (MANUAL) 0.5 10^3/uL (0.1-1.4); ABSOLUTE NEUTROPHILS# (MANUAL) 6.1 10^3/uL (1.7-8.2); BASOPHILS % (MANUAL) 0 % (0-2); EOSINOPHILS % (MANUAL) 1 % (0-6); LYMPHOCYTES % (MANUAL) 13 % (13-45); MONOCYTES % (MANUAL) 7 % (3-13); SEGMENTED NEUTROPHILS % (MAN) 79 % (42-78); TOTAL CELLS COUNTED 100
[2018-07-28 06:48] LABS: ANISOCYTOSIS 1+; BURR CELLS SLIGHT; OVALOCYTES SLIGHT; POIKILOCYTOSIS 1+; POLYCHROMASIA SLIGHT
[2018-07-28 06:49] LABS: PLATELET COMMENT INCREASED; SCHISTOCYTES SLIGHT
[2018-07-28] MEDS: CEFUROXIME 500 MG TABLET PO SCH ×2 (09:19→22:17)
[2018-07-28] MEDS: ACETAZOLAMIDE 250 MG TABLET PO SCH (10:26)
[2018-07-28] MEDS: LEVETIRACETAM 500 MG TABLET PO SCH (10:26)
[2018-07-28] MEDS: FUROSEMIDE 20 MG TABLET PO SCH (10:26)
[2018-07-28] MEDS: ASPIRIN 81 MG TABLET, ENT COATED PO SCH (10:27)
[2018-07-28] MEDS: ALLOPURINOL 100 MG TABLET PO SCH (10:27)
[2018-07-28] MEDS: TAMSULOSIN HCL 0.4 MG CAP.SR.24H PO SCH (10:27)
[2018-07-28] MEDS: ENOXAPARIN SODIUM INJ 30 MG/0.3 ML DISP.SYRIN SUBCUT SCH (10:29)
--- NOTE | 2018-07-28 12:02 | PDOC PROGRESS REPORT ---
Subjective Progress Note for:: 07/28/18 Subjective:: Patient is maintaining sinus rhythm. Ventricular paced beats noted. No significant change in patient's condition. Patient remains intermittently confused. Review of systems: Rest review of systems negative. Medications: Medications have been reviewed. Reason For Visit: SEPSIS, ASPIRATION PNEUMONIA Physical Exam Vital Signs: Temp Pulse Resp BP Pulse Ox 98.0 F 77 16 114/64 93 07/28/18 07:57 07/28/18 08:37 07/28/18 08:37 07/28/18 07:57 07/28/18 07:57 Intake & Output 07/27/18 07/28/18 07/29/18 06:59 06:59 06:59 Intake Total 150 100 Output Total 150 200 Balance 0 -100 Weight 59 kg 62.9 kg Exam: GENERAL: well-nourished and in no acute distress. Patient is alert but not oriented to place time or person. HEAD: Atraumatic, normocephalic. EYES: Pupils equal round and reactive to light, extraocular movements intact, sclera anicteric, conjunctiva are normal. ENT: TMs normal, nares patent, oropharynx clear without exudates. Moist mucous membranes. No oral ulcerations or bleeding gums noted NECK: supple without lymphadenopathy or JVD. Trachea is central. No cervical or axillary lymphadenopathy noted. Carotids are 2+ LUNGS: Breath sounds bibasilar fine crackles at bases. No significant dullness noted. CHEST: Palpation of chest wall shows no significant chest wall tenderness. HEART: L[employer], No PSH, 2/6 TAMIKA aortic area, 1/6 sumner systolic murmur mitral area, rubs or gallops. ABDOMEN: Soft, no significant tenderness appreciated, normoactive bowel sounds. No guarding, no rebound. No rigidity noted . No masses appreciated. EXTREMITIES: Pedal pulses are 1-2+, no calf tenderness noted, Trace + pedal edema noted. No clubbing or cyanosis. NEUROLOGICAL: Patient is alert but is not able to participate in neurological exam because of patient's current mental status PSYCH: Patient cannot participate in a neurologic and psych exam because of the patient's current mental status SKIN: No significant ecchymosis, rash, ulcerations or signs of pruritus noted. MUSCULOSKELETAL EXAM: No significant joint swelling noted. Results Laboratory Results: 07/28/18 05:25 07/28/18 05:25 07/28/18 07/28/18 05:25 05:25 WBC 7.7 RBC 4.76 Hgb 15.4 Hct 47.0 MCV 99 H MCH 32.3 MCHC 32.8 RDW 15.9 H Plt Count 534 H Seg Neutrophils % Not Reportable Lymphocytes % Not Reportable Monocytes % Not Reportable Eosinophils % Not Reportable Basophils % Not Reportable Absolute Neutrophils Not Reportable Absolute Lymphocytes Not Reportable Absolute Monocytes Not Reportable Absolute Eosinophils Not Reportable Absolute Basophils Not Reportable Sodium 139.2 Potassium 4.1 Chloride 106 Carbon Dioxide 24 Anion Gap 9 BUN 22 H Creatinine 1.06 Est GFR ( Amer) > 60 Est GFR (Non-Af Amer) > 60 Glucose 84 Calcium 8.4 Magnesium 2.6 H 07/26/18 07/26/18 07/26/18 00:54 00:54 07:15 Creatine Kinase 577 H Cancelled CK-MB (CK-2) 6.06 H Troponin I 0.093 NT-Pro-B Natriuret Pep 07/26/18 07/26/18 07/26/18 07:15 07:15 07:15 Creatine Kinase 445 H CK-MB (CK-2) 5.00 H Troponin I 0.075 NT-Pro-B Natriuret Pep 70009 H Cancelled 07/26/18 07/26/18 13:56 13:56 Creatine Kinase 383 H CK-MB (CK-2) 4.23 Troponin I 0.063 NT-Pro-B Natriuret Pep Impressions: Cervical Spine CT 07/25/18 20:26 IMPRESSION: 1. No acute intracranial abnormality. 2. No acute fracture or static listhesis of the cervical spine. Head CT 07/25/18 20:26 IMPRESSION: 1. No acute intracranial abnormality. 2. No acute fracture or static listhesis of the cervical spine. Chest CT 07/25/18 21:21 IMPRESSION: There are underlying changes of COPD. In the right posteromedial upper lobe there is a semilunar mass measuring 2.2 x 1.2 x 1.3 cm, abutting the superior medial aspect of the right major fissure. This may represent a true lung base mass or may represent loculated pleural fluid in this portion of the right major fissure. Further evaluation of this finding with a contrast-enhanced CT of the chest is requested TECHNICAL DOCUMENTATION: Quality ID # 436: Final reports with documentation of one or more dose reduction techniques (e.g., Automated exposure control, adjustment of the mA and/or kV according to patient size, use of iterative reconstruction technique) 2010 [employer]- All Rights Reserved Chest X-Ray 07/27/18 00:00 IMPRESSION: Cardiomegaly without CHF. Assessment & Plan - Diagnosis (1) Congestive heart failure Qualifiers: Heart failure type: diastolic Heart failure chronicity: acute Qualified Code(s): I50.31 - Acute diastolic (congestive) heart failure Is this a current diagnosis for this admission?: Yes (2) Chronic obstructive pulmonary disease Qualifiers: COPD type: unspecified COPD Qualified Code(s): J44.9 - Chronic obstructive pulmonary disease, unspecified Is this a current diagnosis for this admission?: Yes (3) Dementia Qualifiers: Dementia type: unspecified type Dementia behavioral disturbance: without behavioral disturbance Qualified Code(s): F03.90 - Unspecified dementia without behavioral disturbance Is this a current diagnosis for this admission?: Yes (4) CAD (coronary artery disease) Qualifiers: Coronary Disease-Associated Artery/Lesion type: unspecified vessel or lesion type Associated angina: without angina Is this a current diagnosis for this admission?: Yes (5) Hyperlipemia Qualifiers: Hyperlipidemia type: unspecified Qualified Code(s): E78.5 - Hyperlipidemia , unspecified Is this a current diagnosis for this admission?: Yes (6) Hypertension Qualifiers: Hypertension type: essential hypertension Qualified Code(s): I10 - Essential (primary) hypertension Is this a current diagnosis for this admission?: Yes (7) Cardiac defibrillator in situ Is this a current diagnosis for this admission?: Yes - Notes Notes: No significant change noted. Patient seen at the request of Dr. Carreno again. Congestive heart failure: This is related to severe systolic dysfunction along with diastolic dysfunction. Continue current diuretic therapy. Continue other supportive therapy. Overall prognosis is however guarded because of patient's baseline poor status. COPD: This seems to be significant problems. Continue current therapy. CAD: 2D echo does show wall motion abnormalities. At this point will recommend medical management. Patient not a candidate for heart catheterization. Hyperlipidemia: Continue statin therapy Hypertension: Recommend liberal blood pressure control. Cardiac defibrillator in situ: Patient's daughter in the room. It seems patient defibrillator was interrogated during last admission and was noted to have depletion of the generator. They still do not want to do a defibrillator generator change out. Telemetry strips reviewed however shows normal pacing functioning. Currently patient been made a DNR. - Time Time with patient: 15-25 minutes - CODE STATUS : was discussed, patient remains DO NOT RESUSCITATE. Surrogate decision-maker unchanged. Multiple medical problems were addressed. More than 50% of the time spent coordinating care, discussing management plans with involved caregivers. Management plans discussed with involved personnels. Medical decision making was of moderate to high complexity, patient's has multiple comorbidities. Medications reviewed and adjusted accordingly: Yes
--- NOTE | 2018-07-28 12:51 | PDOC PROGRESS REPORT ---
Subjective Progress Note for:: 07/28/18 Subjective:: Patient is currently doing well denied any chest pain denied any shortness of the breath No fever no chills no other events happen Reason For Visit: SEPSIS, ASPIRATION PNEUMONIA Physical Exam Vital Signs: Temp Pulse Resp BP Pulse Ox 97.8 F 101 H 20 130/72 H 97 07/28/18 12:15 07/28/18 12:15 07/28/18 12:15 07/28/18 12:15 07/28/18 12:15 Intake & Output 07/27/18 07/28/18 07/29/18 06:59 06:59 06:59 Intake Total 150 100 50 Output Total 150 200 Balance 0 -100 50 Weight 59 kg 62.9 kg Physical Exam: Underlying pleasant dementia General appearance: PRESENT: no acute distress Head exam: PRESENT: atraumatic, normocephalic Eye exam: PRESENT: conjunctiva pink, EOMI, PERRLA. ABSENT: scleral icterus Ear exam: PRESENT: normal external ear exam Mouth exam: PRESENT: moist, tongue midline Neck exam: PRESENT: full ROM. ABSENT: carotid bruit, JVD, lymphadenopathy, thyromegaly Respiratory exam: PRESENT: clear to auscultation charley Cardiovascular exam: PRESENT: RRR. ABSENT: diastolic murmur, rubs, systolic murmur Pulses: PRESENT: normal dorsalis pedis pul, +2 pedal pulses bilateral Vascular exam: PRESENT: normal capillary refill GI/Abdominal exam: PRESENT: normal bowel sounds, soft. ABSENT: distended, guarding, mass, organolmegaly, rebound, tenderness Rectal exam: PRESENT: deferred Extremities exam: ABSENT: pedal edema Neurological exam: PRESENT: alert, awake, oriented to person, oriented to place , oriented to time, oriented to situation, CN II-XII grossly intact. ABSENT: motor sensory deficit Psychiatric exam: PRESENT: appropriate affect, normal mood. ABSENT: homicidal ideation, suicidal ideation Skin exam: PRESENT: dry, intact, warm. ABSENT: cyanosis, rash Results Laboratory Results: 07/28/18 05:25 07/28/18 05:25 07/28/18 07/28/18 05:25 05:25 WBC 7.7 RBC 4.76 Hgb 15.4 Hct 47.0 MCV 99 H MCH 32.3 MCHC 32.8 RDW 15.9 H Plt Count 534 H Seg Neutrophils % Not Reportable Lymphocytes % Not Reportable Monocytes % Not Reportable Eosinophils % Not Reportable Basophils % Not Reportable Absolute Neutrophils Not Reportable Absolute Lymphocytes Not Reportable Absolute Monocytes Not Reportable Absolute Eosinophils Not Reportable Absolute Basophils Not Reportable Sodium 139.2 Potassium 4.1 Chloride 106 Carbon Dioxide 24 Anion Gap 9 BUN 22 H Creatinine 1.06 Est GFR ( Amer) > 60 Est GFR (Non-Af Amer) > 60 Glucose 84 Calcium 8.4 Magnesium 2.6 H 07/26/18 01:30 Clean Catch Midstream Urine Culture - Final NO GROWTH 2 DAYS 07/26/18 07/26/18 07/26/18 00:54 00:54 07:15 Creatine Kinase 577 H Cancelled CK-MB (CK-2) 6.06 H Troponin I 0.093 NT-Pro-B Natriuret Pep 07/26/18 07/26/18 07/26/18 07:15 07:15 07:15 Creatine Kinase 445 H CK-MB (CK-2) 5.00 H Troponin I 0.075 NT-Pro-B Natriuret Pep 23314 H Cancelled 07/26/18 07/26/18 13:56 13:56 Creatine Kinase 383 H CK-MB (CK-2) 4.23 Troponin I 0.063 NT-Pro-B Natriuret Pep Impressions: Cervical Spine CT 07/25/18 20:26 IMPRESSION: 1. No acute intracranial abnormality. 2. No acute fracture or static listhesis of the cervical spine. Head CT 07/25/18 20:26 IMPRESSION: 1. No acute intracranial abnormality. 2. No acute fracture or static listhesis of the cervical spine. Chest CT 07/25/18 21:21 IMPRESSION: There are underlying changes of COPD. In the right posteromedial upper lobe there is a semilunar mass measuring 2.2 x 1.2 x 1.3 cm, abutting the superior medial aspect of the right major fissure. This may represent a true lung base mass or may represent loculated pleural fluid in this portion of the right major fissure. Further evaluation of this finding with a contrast-enhanced CT of the chest is requested TECHNICAL DOCUMENTATION: Quality ID # 436: Final reports with documentation of one or more dose reduction techniques (e.g., Automated exposure control, adjustment of the mA and/or kV according to patient size, use of iterative reconstruction technique) 2010 [employer]- All Rights Reserved Chest X-Ray 07/27/18 00:00 IMPRESSION: Cardiomegaly without CHF. Assessment & Plan - Diagnosis (1) Congestive heart failure Qualifiers: Heart failure type: diastolic Heart failure chronicity: acute Qualified Code(s): I50.31 - Acute diastolic (congestive) heart failure Is this a current diagnosis for this admission?: Yes Plan: Will switch IV to the p.o. Lasix follow-up with the cardiology (2) Sepsis Qualifiers: Sepsis type: sepsis due to unspecified organism Qualified Code(s): A41.9 - Sepsis, unspecified organism Is this a current diagnosis for this admission?: Yes Plan: Culture is negative will be switched to the IV antibiotic the p.o. for underlying bronchitis (3) Acute exacerbation of chronic obstructive pulmonary disease (COPD) Is this a current diagnosis for this admission?: Yes Plan: Continues to DuoNeb nebulizer treatments (4) Elevated troponin Is this a current diagnosis for this admission?: Yes Plan: Follow-up with cardiology (5) CVA, old, hemiparesis Is this a current diagnosis for this admission?: Yes Plan: CT of the head was all negative (6) Cardiac pacemaker Is this a current diagnosis for this admission?: Yes Plan: Follow with the cardiology (7) Dementia Qualifiers: Dementia type: unspecified type Dementia behavioral disturbance: without behavioral disturbance Qualified Code(s): F03.90 - Unspecified dementia without behavioral disturbance Is this a current diagnosis for this admission?: Yes Plan: Continues current medication (8) Fall Qualifiers: Encounter type: initial encounter Qualified Code(s): W19.XXXA - Unspecified fall, initial encounter Is this a current diagnosis for this admission?: Yes Plan: Patient with significant dementia and the patient have a issue with the right- sided weakness from old strokes need of physical therapy and fall precautions (9) Pulmonary mass Is this a current diagnosis for this admission?: Yes Plan: Is currently see a Dr. Han as outpatients (10) Rhabdomyolysis Qualifiers: Rhabdomyolysis type: traumatic Encounter type: initial encounter Qualified Code(s): T79.6XXA - Traumatic ischemia of muscle, initial encounter Is this a current diagnosis for this admission?: Yes Plan: With the recent fall (11) Seizure disorder Is this a current diagnosis for this admission?: Yes Plan: Continues to Ayaz (12) Thrombocytosis Is this a current diagnosis for this admission?: Yes Plan: Patient is currently follow with the Dr. Han as outpatient (13) Benign prostate hyperplasia Qualifiers: Lower urinary tract symptom presence: symptoms absent Qualified Code(s): N40.0 - Benign prostatic hyperplasia without lower urinary tract symptoms Is this a current diagnosis for this admission?: Yes (14) CAD (coronary artery disease) Qualifiers: Coronary Disease-Associated Artery/Lesion type: unspecified vessel or lesion type Associated angina: without angina Is this a current diagnosis for this admission?: Yes Plan: Currently all stable - Time Time Spent with patient: 15-24 minutes Medications reviewed and adjusted accordingly: Yes Anticipated discharge: SNF Within: within 48 hours - Inpatient Certification Medical Necessity: Need Close Monitoring Due to Risk of Patient Decompensation Post Hospital Care: D/C Stack Clerk Documentation - Plan Summary Plan Summary: To this current medication
[2018-07-28] MEDS: DONEPEZIL HCL 5 MG TABLET PO SCH (22:17)
[2018-07-28] MEDS: SIMVASTATIN 40 MG TABLET PO SCH (22:18)
[2018-07-29] MEDS: IPRATROPIUM/ALBUTEROL 0.5-2.5 MG/3 ML AMPUL NEB SCH ×4 (01:41→20:56)
[2018-07-29] MEDS: LANSOPRAZOLE 30 MG TAB.RAP.DR PO SCH (05:23)
[2018-07-29 05:46] LABS: ANION GAP 9 (5-19); BLOOD UREA NITROGEN 26 mg/dL (7-20); CARBON DIOXIDE 24 mmol/L (22-30); CHLORIDE 106 mmol/L (98-107); GLUCOSE 110 mg/dL (75-110); POTASSIUM 4.8 mmol/L (3.6-5.0); SODIUM 138.5 mmol/L (137-145)
[2018-07-29] MEDS: ACETAZOLAMIDE 250 MG TABLET PO SCH (10:02)
[2018-07-29] MEDS: CEFUROXIME 500 MG TABLET PO SCH ×2 (10:02→21:18)
[2018-07-29] MEDS: ENOXAPARIN SODIUM INJ 30 MG/0.3 ML DISP.SYRIN SUBCUT SCH (10:03)
[2018-07-29] MEDS: ALLOPURINOL 100 MG TABLET PO SCH (10:03)
[2018-07-29] MEDS: FUROSEMIDE 20 MG TABLET PO SCH (10:03)
[2018-07-29] MEDS: LEVETIRACETAM 500 MG TABLET PO SCH (10:03)
[2018-07-29] MEDS: TAMSULOSIN HCL 0.4 MG CAP.SR.24H PO SCH (10:03)
[2018-07-29] MEDS: ASPIRIN 81 MG TABLET, ENT COATED PO SCH (10:03)
--- NOTE | 2018-07-29 14:23 | PDOC PROGRESS REPORT ---
Subjective Progress Note for:: 07/29/18 Subjective:: No chest pain or difficulty with breathing. No reported fever or chills. No seizure activity. Reason For Visit: SEPSIS, ASPIRATION PNEUMONIA Physical Exam Vital Signs: Temp Pulse Resp BP Pulse Ox 97.9 F 96 20 128/83 H 99 07/29/18 12:08 07/29/18 14:03 07/29/18 14:03 07/29/18 12:08 07/29/18 14:03 Intake & Output 07/28/18 07/29/18 07/30/18 06:59 06:59 06:59 Intake Total 100 522 791 Output Total 200 Balance -100 522 791 Weight 62.9 kg 63.3 kg General appearance: PRESENT: no acute distress Head exam: PRESENT: atraumatic, normocephalic Ear exam: PRESENT: normal external ear exam Mouth exam: PRESENT: moist Respiratory exam: PRESENT: decreased breath sounds - at lung bases Cardiovascular exam: PRESENT: RRR, +S1, +S2 Vascular exam: ABSENT: pallor GI/Abdominal exam: PRESENT: normal bowel sounds, soft Extremities exam: ABSENT: pedal edema Neurological exam: PRESENT: alert, awake, oriented to person, oriented to place , oriented to time, oriented to situation, CN II-XII grossly intact. ABSENT: motor sensory deficit Psychiatric exam: PRESENT: appropriate affect, normal mood. ABSENT: homicidal ideation, suicidal ideation Skin exam: PRESENT: dry, warm Results Laboratory Results: 07/28/18 05:25 07/29/18 04:48 07/29/18 04:48 Sodium 138.5 Potassium 4.8 Chloride 106 Carbon Dioxide 24 Anion Gap 9 BUN 26 H Creatinine 1.05 Est GFR ( Amer) > 60 Est GFR (Non-Af Amer) > 60 Glucose 110 Calcium 9.0 07/26/18 01:30 Clean Catch Midstream Urine Culture - Final NO GROWTH 2 DAYS 07/26/18 07/26/18 07/26/18 00:54 00:54 07:15 Creatine Kinase 577 H Cancelled CK-MB (CK-2) 6.06 H Troponin I 0.093 NT-Pro-B Natriuret Pep 07/26/18 07/26/18 07/26/18 07:15 07:15 07:15 Creatine Kinase 445 H CK-MB (CK-2) 5.00 H Troponin I 0.075 NT-Pro-B Natriuret Pep 88733 H Cancelled 07/26/18 07/26/18 13:56 13:56 Creatine Kinase 383 H CK-MB (CK-2) 4.23 Troponin I 0.063 NT-Pro-B Natriuret Pep Impressions: Cervical Spine CT 07/25/18 20:26 IMPRESSION: 1. No acute intracranial abnormality. 2. No acute fracture or static listhesis of the cervical spine. Head CT 07/25/18 20:26 IMPRESSION: 1. No acute intracranial abnormality. 2. No acute fracture or static listhesis of the cervical spine. Chest CT 07/25/18 21:21 IMPRESSION: There are underlying changes of COPD. In the right posteromedial upper lobe there is a semilunar mass measuring 2.2 x 1.2 x 1.3 cm, abutting the superior medial aspect of the right major fissure. This may represent a true lung base mass or may represent loculated pleural fluid in this portion of the right major fissure. Further evaluation of this finding with a contrast-enhanced CT of the chest is requested TECHNICAL DOCUMENTATION: Quality ID # 436: Final reports with documentation of one or more dose reduction techniques (e.g., Automated exposure control, adjustment of the mA and/or kV according to patient size, use of iterative reconstruction technique) 2010 [employer]- All Rights Reserved Chest X-Ray 07/27/18 00:00 IMPRESSION: Cardiomegaly without CHF. Assessment & Plan - Diagnosis (1) Congestive heart failure Qualifiers: Heart failure type: diastolic Heart failure chronicity: acute Qualified Code(s): I50.31 - Acute diastolic (congestive) heart failure Is this a current diagnosis for this admission?: Yes Plan: Continue current medication management. (2) Sepsis Qualifiers: Sepsis type: sepsis due to unspecified organism Qualified Code(s): A41.9 - Sepsis, unspecified organism Is this a current diagnosis for this admission?: Yes Plan: Continue current medication management. (3) Seizure disorder Is this a current diagnosis for this admission?: Yes Plan: Continue current medication management. - Time Time Spent with patient: 25-34 minutes Medications reviewed and adjusted accordingly: Yes Anticipated discharge: Other Within: Other - Inpatient Certification Based on my medical assessment, after consideration of the patient's comorbidities, presenting symptoms, or acuity I expect that the services needed warrant INPATIENT care.: Yes I certify that my determination is in accordance with my understanding of Medicare's requirements for reasonable and necessary INPATIENT services [42 CFR 412.3e].: Yes Medical Necessity: Need Close Monitoring Due to Risk of Patient Decompensation, Need For Continuous Telemetry Monitoring, Need for Nebulizer Therapy and Monitoring of Response, Risk of Complication if Not Cared For in Hospital Post Hospital Care: D/C or Transfer Summary - Plan Summary Plan Summary: Continue current medication management.
--- NOTE | 2018-07-29 15:02 | PDOC PROGRESS REPORT ---
Subjective Progress Note for:: 07/27/18 Subjective:: Patient is maintaining sinus rhythm. Ventricular paced beats noted. Patient remains intermittently confused but voicing no complaints. Review of systems: Rest review of systems negative. Medications: Medications have been reviewed. Reason For Visit: SEPSIS, ASPIRATION PNEUMONIA Physical Exam Vital Signs: Temp Pulse Resp BP Pulse Ox 98.6 F 92 20 111/75 98 07/27/18 12:00 07/27/18 14:00 07/27/18 13:53 07/27/18 12:00 07/27/18 13:53 Intake & Output 07/26/18 07/27/18 07/28/18 06:59 06:59 06:59 Intake Total 1100 150 100 Output Total 100 150 Balance 1000 0 100 Weight 60.3 kg 59 kg Exam: GENERAL: well-nourished and in no acute distress. Patient is alert but not oriented to place time or person. HEAD: Atraumatic, normocephalic. EYES: Pupils equal round and reactive to light, extraocular movements intact, sclera anicteric, conjunctiva are normal. ENT: TMs normal, nares patent, oropharynx clear without exudates. Moist mucous membranes. No oral ulcerations or bleeding gums noted NECK: supple without lymphadenopathy or JVD. Trachea is central. No cervical or axillary lymphadenopathy noted. Carotids are 2+ LUNGS: Breath sounds bibasilar fine crackles at bases. No significant dullness noted. CHEST: Palpation of chest wall shows no significant chest wall tenderness. 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 ABDOMEN: Soft, no significant tenderness appreciated, normoactive bowel sounds. No guarding, no rebound. No rigidity noted . No masses appreciated. EXTREMITIES: Pedal pulses are 1-2+, no calf tenderness noted, Trace + pedal edema noted. No clubbing or cyanosis. NEUROLOGICAL: Patient is alert but is not able to participate in neurological exam because of patient's current mental status PSYCH: Patient cannot participate in a neurologic and psych exam because of the patient's current mental status SKIN: No significant ecchymosis, rash, ulcerations or signs of pruritus noted. MUSCULOSKELETAL EXAM: No significant joint swelling noted. Results Laboratory Results: 07/27/18 03:37 07/26/18 07:15 07/27/18 07/27/18 03:37 03:37 WBC 9.4 RBC 4.86 Hgb 15.5 Hct 47.4 MCV 98 H MCH 31.8 MCHC 32.6 RDW 15.7 H Plt Count 674 H Seg Neutrophils % Not Reportable Lymphocytes % Not Reportable Monocytes % Not Reportable Eosinophils % Not Reportable Basophils % Not Reportable Absolute Neutrophils Not Reportable Absolute Lymphocytes Not Reportable Absolute Monocytes Not Reportable Absolute Eosinophils Not Reportable Absolute Basophils Not Reportable Magnesium 2.3 07/26/18 07/26/18 07/26/18 00:54 00:54 07:15 Creatine Kinase 577 H Cancelled CK-MB (CK-2) 6.06 H Troponin I 0.093 NT-Pro-B Natriuret Pep 07/26/18 07/26/18 07/26/18 07:15 07:15 07:15 Creatine Kinase 445 H CK-MB (CK-2) 5.00 H Troponin I 0.075 NT-Pro-B Natriuret Pep 77348 H Cancelled 07/26/18 07/26/18 13:56 13:56 Creatine Kinase 383 H CK-MB (CK-2) 4.23 Troponin I 0.063 NT-Pro-B Natriuret Pep EKG Comments: Telemetry shows sinus rhythm with ventricular paced beats Impressions: Cervical Spine CT 07/25/18 20:26 IMPRESSION: 1. No acute intracranial abnormality. 2. No acute fracture or static listhesis of the cervical spine. Head CT 07/25/18 20:26 IMPRESSION: 1. No acute intracranial abnormality. 2. No acute fracture or static listhesis of the cervical spine. Chest CT 07/25/18 21:21 IMPRESSION: There are underlying changes of COPD. In the right posteromedial upper lobe there is a semilunar mass measuring 2.2 x 1.2 x 1.3 cm, abutting the superior medial aspect of the right major fissure. This may represent a true lung base mass or may represent loculated pleural fluid in this portion of the right major fissure. Further evaluation of this finding with a contrast-enhanced CT of the chest is requested TECHNICAL DOCUMENTATION: Quality ID # 436: Final reports with documentation of one or more dose reduction techniques (e.g., Automated exposure control, adjustment of the mA and/or kV according to patient size, use of iterative reconstruction technique) 2010 [employer]- All Rights Reserved Chest X-Ray 07/27/18 00:00 IMPRESSION: Cardiomegaly without CHF. Assessment & Plan - Diagnosis (1) Congestive heart failure Qualifiers: Heart failure type: diastolic Heart failure chronicity: acute Qualified Code(s): I50.31 - Acute diastolic (congestive) heart failure Is this a current diagnosis for this admission?: Yes (2) Chronic obstructive pulmonary disease Qualifiers: COPD type: unspecified COPD Qualified Code(s): J44.9 - Chronic obstructive pulmonary disease, unspecified Is this a current diagnosis for this admission?: Yes (3) Dementia Qualifiers: Dementia type: unspecified type Dementia behavioral disturbance: without behavioral disturbance Qualified Code(s): F03.90 - Unspecified dementia without behavioral disturbance Is this a current diagnosis for this admission?: Yes (4) CAD (coronary artery disease) Qualifiers: Coronary Disease-Associated Artery/Lesion type: unspecified vessel or lesion type Associated angina: without angina Is this a current diagnosis for this admission?: Yes (5) Hyperlipemia Qualifiers: Hyperlipidemia type: unspecified Qualified Code(s): E78.5 - Hyperlipidemia , unspecified Is this a current diagnosis for this admission?: Yes (6) Hypertension Qualifiers: Hypertension type: essential hypertension Qualified Code(s): I10 - Essential (primary) hypertension Is this a current diagnosis for this admission?: Yes (7) Cardiac defibrillator in situ Is this a current diagnosis for this admission?: Yes - Notes Notes: Congestive heart failure: This is related to severe systolic dysfunction along with diastolic dysfunction. Continue current diuretic therapy. Continue other supportive therapy. Overall prognosis is however guarded because of patient's baseline poor status. COPD: This seems to be significant problems. Continue current therapy. CAD: 2D echo does show wall motion abnormalities. At this point will recommend medical management. Patient not a candidate for heart catheterization. Hyperlipidemia: Continue statin therapy Hypertension: Recommend liberal blood pressure control. Cardiac defibrillator in situ: Patient's daughter in the room. It seems patient defibrillator was interrogated during last admission and was noted to have depletion of the generator. They still do not want to do a defibrillator generator change out. Telemetry strips reviewed however shows normal pacing functioning. Currently patient been made a DNR. - Time Time with patient: 15-25 minutes - CODE STATUS : was discussed, patient remains DO NOT RESUSCITATE. Surrogate decision-maker unchanged. Multiple medical problems were addressed. More than 50% of the time spent coordinating care, discussing management plans with involved caregivers. Management plans discussed with involved personnels. Medical decision making was of moderate to high complexity, patient's has multiple comorbidities. Medications reviewed and adjusted accordingly: Yes
--- NOTE | 2018-07-29 15:11 | PDOC PROGRESS REPORT ---
Subjective Progress Note for:: 07/29/18 Subjective:: Patient remained stable without any significant change. Patient is maintaining sinus rhythm. Ventricular paced beats noted. No significant change in patient's condition. Patient remains intermittently confused. Review of systems: Rest review of systems negative. Medications: Medications have been reviewed. Reason For Visit: SEPSIS, ASPIRATION PNEUMONIA Physical Exam Vital Signs: Temp Pulse Resp BP Pulse Ox 97.9 F 96 20 128/83 H 99 07/29/18 12:08 07/29/18 14:03 07/29/18 14:03 07/29/18 12:08 07/29/18 14:03 Intake & Output 07/28/18 07/29/18 07/30/18 06:59 06:59 06:59 Intake Total 100 522 791 Output Total 200 Balance -100 522 791 Weight 62.9 kg 63.3 kg Exam: GENERAL: well-nourished and in no acute distress. Patient is alert but not oriented to place time or person. HEAD: Atraumatic, normocephalic. EYES: Pupils equal round and reactive to light, extraocular movements intact, sclera anicteric, conjunctiva are normal. ENT: TMs normal, nares patent, oropharynx clear without exudates. Moist mucous membranes. No oral ulcerations or bleeding gums noted NECK: supple without lymphadenopathy or JVD. Trachea is central. No cervical or axillary lymphadenopathy noted. Carotids are 2+ LUNGS: Breath sounds bibasilar fine crackles at bases. No significant dullness noted. CHEST: Palpation of chest wall shows no significant chest wall tenderness. 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 ABDOMEN: Soft, no significant tenderness appreciated, normoactive bowel sounds. No guarding, no rebound. No rigidity noted . No masses appreciated. EXTREMITIES: Pedal pulses are 1-2+, no calf tenderness noted, Trace + pedal edema noted. No clubbing or cyanosis. NEUROLOGICAL: Patient is alert but is not able to participate in neurological exam because of patient's current mental status PSYCH: Patient cannot participate in a neurologic and psych exam because of the patient's current mental status SKIN: No significant ecchymosis, rash, ulcerations or signs of pruritus noted. MUSCULOSKELETAL EXAM: No significant joint swelling noted. Results Laboratory Results: 07/28/18 05:25 07/29/18 04:48 07/29/18 04:48 Sodium 138.5 Potassium 4.8 Chloride 106 Carbon Dioxide 24 Anion Gap 9 BUN 26 H Creatinine 1.05 Est GFR ( Amer) > 60 Est GFR (Non-Af Amer) > 60 Glucose 110 Calcium 9.0 07/26/18 01:30 Clean Catch Midstream Urine Culture - Final NO GROWTH 2 DAYS 07/26/18 07/26/18 07/26/18 00:54 00:54 07:15 Creatine Kinase 577 H Cancelled CK-MB (CK-2) 6.06 H Troponin I 0.093 NT-Pro-B Natriuret Pep 07/26/18 07/26/18 07/26/18 07:15 07:15 07:15 Creatine Kinase 445 H CK-MB (CK-2) 5.00 H Troponin I 0.075 NT-Pro-B Natriuret Pep 21215 H Cancelled 07/26/18 07/26/18 13:56 13:56 Creatine Kinase 383 H CK-MB (CK-2) 4.23 Troponin I 0.063 NT-Pro-B Natriuret Pep EKG Comments: Shows sinus rhythm with ventricular paced beats. No sustained tachycardia or bradycardia arrhythmias noted. Impressions: Cervical Spine CT 07/25/18 20:26 IMPRESSION: 1. No acute intracranial abnormality. 2. No acute fracture or static listhesis of the cervical spine. Head CT 07/25/18 20:26 IMPRESSION: 1. No acute intracranial abnormality. 2. No acute fracture or static listhesis of the cervical spine. Chest CT 07/25/18 21:21 IMPRESSION: There are underlying changes of COPD. In the right posteromedial upper lobe there is a semilunar mass measuring 2.2 x 1.2 x 1.3 cm, abutting the superior medial aspect of the right major fissure. This may represent a true lung base mass or may represent loculated pleural fluid in this portion of the right major fissure. Further evaluation of this finding with a contrast-enhanced CT of the chest is requested TECHNICAL DOCUMENTATION: Quality ID # 436: Final reports with documentation of one or more dose reduction techniques (e.g., Automated exposure control, adjustment of the mA and/or kV according to patient size, use of iterative reconstruction technique) 2010 [employer]- All Rights Reserved Chest X-Ray 07/27/18 00:00 IMPRESSION: Cardiomegaly without CHF. Assessment & Plan - Diagnosis (1) Congestive heart failure Qualifiers: Heart failure type: diastolic Heart failure chronicity: acute Qualified Code(s): I50.31 - Acute diastolic (congestive) heart failure Is this a current diagnosis for this admission?: Yes (2) Chronic obstructive pulmonary disease Qualifiers: COPD type: unspecified COPD Qualified Code(s): J44.9 - Chronic obstructive pulmonary disease, unspecified Is this a current diagnosis for this admission?: Yes (3) Dementia Qualifiers: Dementia type: unspecified type Dementia behavioral disturbance: without behavioral disturbance Qualified Code(s): F03.90 - Unspecified dementia without behavioral disturbance Is this a current diagnosis for this admission?: Yes (4) CAD (coronary artery disease) Qualifiers: Coronary Disease-Associated Artery/Lesion type: unspecified vessel or lesion type Associated angina: without angina Is this a current diagnosis for this admission?: Yes (5) Hyperlipemia Qualifiers: Hyperlipidemia type: unspecified Qualified Code(s): E78.5 - Hyperlipidemia , unspecified Is this a current diagnosis for this admission?: Yes (6) Hypertension Qualifiers: Hypertension type: essential hypertension Qualified Code(s): I10 - Essential (primary) hypertension Is this a current diagnosis for this admission?: Yes (7) Cardiac defibrillator in situ Is this a current diagnosis for this admission?: Yes - Notes Notes: Patient has remained stable for last several days. At this point, will sign off. Patient can follow-up with me if family wishes. Will sign off. Please reconsult if needed. Congestive heart failure: This is related to severe systolic dysfunction along with diastolic dysfunction. Continue current diuretic therapy. Continue other supportive therapy. Overall prognosis is however guarded because of patient's baseline poor status. COPD: This seems to be significant problems. Continue current therapy. CAD: 2D echo does show wall motion abnormalities. At this point will recommend medical management. Patient not a candidate for heart catheterization. Hyperlipidemia: Continue statin therapy Hypertension: Recommend liberal blood pressure control. Cardiac defibrillator in situ: Patient's daughter in the room. It seems patient defibrillator was interrogated during last admission and was noted to have depletion of the generator. They still do not want to do a defibrillator generator change out. Telemetry strips reviewed however shows normal pacing functioning. Currently patient been made a DNR. - Time Time with patient: 15-25 minutes - CODE STATUS : was discussed, patient remains DO NOT RESUSCITATE. Surrogate decision-maker unchanged. Multiple medical problems were addressed. More than 50% of the time spent coordinating care, discussing management plans with involved caregivers. Management plans discussed with involved personnels. Medical decision making was of moderate to high complexity, patient's has multiple comorbidities. Medications reviewed and adjusted accordingly: Yes
[2018-07-29] MEDS: SIMVASTATIN 40 MG TABLET PO SCH (21:18)
[2018-07-29] MEDS: DONEPEZIL HCL 5 MG TABLET PO SCH (21:18)
[2018-07-30] MEDS: IPRATROPIUM/ALBUTEROL 0.5-2.5 MG/3 ML AMPUL NEB SCH ×4 (02:22→20:13)
[2018-07-30] MEDS: LANSOPRAZOLE 30 MG TAB.RAP.DR PO SCH (05:32)
[2018-07-30 06:03] LABS: ANION GAP 10 (5-19); BLOOD UREA NITROGEN 34 mg/dL (7-20); CALCIUM 9.3 mg/dL (8.4-10.2); CARBON DIOXIDE 27 mmol/L (22-30); CHLORIDE 104 mmol/L (98-107); GLUCOSE 111 mg/dL (75-110); SODIUM 140.8 mmol/L (137-145)
[2018-07-30] MEDS: CEFUROXIME 500 MG TABLET PO SCH ×2 (09:32→21:19)
[2018-07-30] MEDS: FUROSEMIDE 20 MG TABLET PO SCH (09:33)
[2018-07-30] MEDS: ALLOPURINOL 100 MG TABLET PO SCH (09:33)
[2018-07-30] MEDS: ENOXAPARIN SODIUM INJ 30 MG/0.3 ML DISP.SYRIN SUBCUT SCH (09:33)
[2018-07-30] MEDS: ACETAZOLAMIDE 250 MG TABLET PO SCH (09:33)
[2018-07-30] MEDS: ASPIRIN 81 MG TABLET, ENT COATED PO SCH (09:33)
[2018-07-30] MEDS: LEVETIRACETAM 500 MG TABLET PO SCH (09:33)
[2018-07-30] MEDS: TAMSULOSIN HCL 0.4 MG CAP.SR.24H PO SCH (09:33)
--- NOTE | 2018-07-30 10:43 | PDOC PROGRESS REPORT ---
Subjective Progress Note for:: 07/30/18 Subjective:: No chest pain or difficulty with breathing. No reported fever or chills. No seizure activity. Reason For Visit: SEPSIS, ASPIRATION PNEUMONIA Physical Exam Vital Signs: Temp Pulse Resp BP Pulse Ox 99.0 F 98 20 123/75 100 07/30/18 07:45 07/30/18 08:06 07/30/18 08:06 07/30/18 07:45 07/30/18 08:06 Intake & Output 07/29/18 07/30/18 07/31/18 06:59 06:59 06:59 Intake Total 522 1467 Output Total 250 Balance 522 1217 Weight 63.3 kg 62.2 kg Physical Exam: General appearance: PRESENT: no acute distress Head exam: PRESENT: atraumatic, normocephalic Ear exam: PRESENT: normal external ear exam Mouth exam: PRESENT: moist Respiratory exam: PRESENT: decreased breath sounds - at lung bases Cardiovascular exam: PRESENT: RRR, +S1, +S2 Vascular exam: ABSENT: pallor GI/Abdominal exam: PRESENT: normal bowel sounds, soft Extremities exam: ABSENT: pedal edema Neurological exam: PRESENT: alert, awake, oriented to person, oriented to place , oriented to time, oriented to situation, CN II-XII grossly intact. ABSENT: motor sensory deficit Psychiatric exam: PRESENT: appropriate affect, normal mood. ABSENT: homicidal ideation, suicidal ideation Skin exam: PRESENT: dry, warm Results Laboratory Results: 07/28/18 05:25 07/30/18 04:16 07/30/18 04:16 Sodium 140.8 Potassium 5.0 Chloride 104 Carbon Dioxide 27 Anion Gap 10 BUN 34 H Creatinine 1.08 Est GFR ( Amer) > 60 Est GFR (Non-Af Amer) > 60 Glucose 111 H Calcium 9.3 07/26/18 07/26/18 07/26/18 00:54 00:54 07:15 Creatine Kinase 577 H Cancelled CK-MB (CK-2) 6.06 H Troponin I 0.093 NT-Pro-B Natriuret Pep 07/26/18 07/26/18 07/26/18 07:15 07:15 07:15 Creatine Kinase 445 H CK-MB (CK-2) 5.00 H Troponin I 0.075 NT-Pro-B Natriuret Pep 15076 H Cancelled 07/26/18 07/26/18 13:56 13:56 Creatine Kinase 383 H CK-MB (CK-2) 4.23 Troponin I 0.063 NT-Pro-B Natriuret Pep Impressions: Cervical Spine CT 07/25/18 20:26 IMPRESSION: 1. No acute intracranial abnormality. 2. No acute fracture or static listhesis of the cervical spine. Head CT 07/25/18 20:26 IMPRESSION: 1. No acute intracranial abnormality. 2. No acute fracture or static listhesis of the cervical spine. Chest CT 07/25/18 21:21 IMPRESSION: There are underlying changes of COPD. In the right posteromedial upper lobe there is a semilunar mass measuring 2.2 x 1.2 x 1.3 cm, abutting the superior medial aspect of the right major fissure. This may represent a true lung base mass or may represent loculated pleural fluid in this portion of the right major fissure. Further evaluation of this finding with a contrast-enhanced CT of the chest is requested TECHNICAL DOCUMENTATION: Quality ID # 436: Final reports with documentation of one or more dose reduction techniques (e.g., Automated exposure control, adjustment of the mA and/or kV according to patient size, use of iterative reconstruction technique) 2010 [employer]- All Rights Reserved Chest X-Ray 07/27/18 00:00 IMPRESSION: Cardiomegaly without CHF. Assessment & Plan - Diagnosis (1) Congestive heart failure Qualifiers: Heart failure type: diastolic Heart failure chronicity: acute Qualified Code(s): I50.31 - Acute diastolic (congestive) heart failure Is this a current diagnosis for this admission?: Yes (2) Sepsis Qualifiers: Sepsis type: sepsis due to unspecified organism Qualified Code(s): A41.9 - Sepsis, unspecified organism Is this a current diagnosis for this admission?: Yes (3) Seizure disorder Is this a current diagnosis for this admission?: Yes - Time Time Spent with patient: 25-34 minutes Medications reviewed and adjusted accordingly: Yes Anticipated discharge: SNF Within: Other - Inpatient Certification Based on my medical assessment, after consideration of the patient's comorbidities, presenting symptoms, or acuity I expect that the services needed warrant INPATIENT care.: Yes I certify that my determination is in accordance with my understanding of Medicare's requirements for reasonable and necessary INPATIENT services [42 CFR 412.3e].: Yes Medical Necessity: Need Close Monitoring Due to Risk of Patient Decompensation, Need For Continuous Telemetry Monitoring, Risk of Complication if Not Cared For in Hospital Post Hospital Care: D/C or Transfer Summary - Plan Summary Plan Summary: Continue current medication management.
[2018-07-30] MEDS: DONEPEZIL HCL 5 MG TABLET PO SCH (21:17)
[2018-07-30] MEDS: SIMVASTATIN 40 MG TABLET PO SCH (21:18)
[2018-07-31] MEDS: IPRATROPIUM/ALBUTEROL 0.5-2.5 MG/3 ML AMPUL NEB SCH ×3 (02:10→13:42)
[2018-07-31] MEDS: LANSOPRAZOLE 30 MG TAB.RAP.DR PO SCH (05:54)
--- NOTE | 2018-07-31 08:18 | PDOC TRANSFER SUMMARY ---
General - Admit/Disc Date/PCP Admission Date/Primary Care Provider: 07/25/18 21:25 ALANNA MONTE MD Discharge Date: 07/31/18 - Discharge Diagnosis (1) Congestive heart failure Is this a current diagnosis for this admission?: Yes Summary: Patient is a combined systolic and diastolic heart failure with a EF is less than 40% Continues to Lasix Follow outpatients Dr. Gongora (2) Sepsis Is this a current diagnosis for this admission?: Yes Summary: Currently all resolved (3) Acute exacerbation of chronic obstructive pulmonary disease (COPD) Is this a current diagnosis for this admission?: Yes Summary: Continues to nebulizer treatments and as needed oxygen's (4) Elevated troponin Is this a current diagnosis for this admission?: Yes Summary: Medical management follow with the Dr. Gongora or Erica (5) CVA, old, hemiparesis Is this a current diagnosis for this admission?: Yes Summary: Fall precautions (6) Cardiac pacemaker Is this a current diagnosis for this admission?: Yes Summary: As per discussed with the cardiology to the family did not need to do anything further evaluations (7) Dementia Is this a current diagnosis for this admission?: Yes Summary: Continues to current medication (8) Fall Is this a current diagnosis for this admission?: Yes Summary: Fall precautions due to the related to the stroke weakness (9) Pulmonary mass Is this a current diagnosis for this admission?: Yes Summary: Follow outpatients Dr. Han (10) Rhabdomyolysis Is this a current diagnosis for this admission?: Yes Summary: Currently all resolved (11) Seizure disorder Is this a current diagnosis for this admission?: Yes Summary: Continues to Ayaz (12) Thrombocytosis Is this a current diagnosis for this admission?: Yes Summary: Currently stable patients follow outpatients Dr. Han (13) Benign prostate hyperplasia Is this a current diagnosis for this admission?: Yes Summary: Continues to current medications (14) CAD (coronary artery disease) Is this a current diagnosis for this admission?: Yes Summary: Currently all stable follow outpatients cardiology - Additional Information Resuscitation Status: Do Not Resuscitate Discharge Diet: Cardiac Discharge Activity: Activity As Tolerated, Balance Activity w/Rest Prescriptions: Cefuroxime Axetil [Ceftin 500 mg Tablet] 500 mg PO Q12 #14 tablet Furosemide [Lasix 20 mg Tablet] 20 mg PO DAILY #30 tablet Home Medications: Acetazolamide [Diamox 250 mg Tab] 250 mg PO DAILY 07/26/18 Allopurinol [Zyloprim 100 mg Tablet] 100 mg PO DAILY 07/26/18 Aspirin [Aspirin EC] 81 mg PO DAILY 07/26/18 Donepezil HCl [Aricept] 10 mg PO QHS 07/26/18 Furosemide [Lasix 20 mg Tablet] 20 mg PO DAILYP PRN 07/26/18 Ipratropium/Albuterol Sulfate [Duoneb 3 ml Ampul] 1 vial NEB Q6HP PRN 07/26/18 Levetiracetam [Keppra] 1,000 mg PO DAILY 07/26/18 Omeprazole 40 mg PO DAILY 07/26/18 Simvastatin [Zocor 40 mg Tablet] 40 mg PO QHS 07/26/18 Tamsulosin HCl [Flomax 0.4 mg Cap.sr] 0.4 mg PO DAILY 07/26/18 Cefuroxime Axetil [Ceftin 500 mg Tablet] 500 mg PO Q12 #14 tablet 07/31/18 Furosemide [Lasix 20 mg Tablet] 20 mg PO DAILY #30 tablet 07/31/18 History of Present Illness Admission Date/PCP: 07/25/18 21:25 ALANNA MONTE MD History of Present Illness: HEMANT GRIFFITH is a 87 year old male This is a 87-year-old male with a significant history of the dementia history of the coronary artery disease cardiac pacemaker and a history of the pulmonary mass and multiple medical issues just recently admitted by the UTI and discharge couple of days in a [facility] brought to the ER by EMS because of the history of the couple of fall without any witness In the mcc Patients also hypoxic to 87% on room air per EMS in the emergency department patient have a CT of the head was negative for any acute finding CT of the C- spine is also negative and patient CT of the chest primus continues with the pulmonary mass Patient having no other broken injury when I saw the patient on the floor patient is back to the baseline denied any chest pain denied any shortness of the breath patient's currently in the room air with a 94%'s Patient also have a questionable pneumonia versus infections with a possible UTI with the lactic acid is 2.4 and patient's white count was 12 Patient's otherwise denied any chest pain denied any shortness of the breath Hospital Course Hospital Course: This is a 37-year-old male presenting the emergency department with the shortness of the breath and hypoxia in patients diagnosed with acute systolic and congestive heart failure with EF is 35%'s Patient also have a sepsis possible underlying bronchitis patient was started on IV antibiotic and then DC after that no culture grew back and put in the p.o. antibiotic for bronchitis and patient's also put on IV Lasix and switch to the p.o. Lasix Patient seen by the cardiology and suggest to continue some medical management as per discussed with the family Patient's otherwise remained stable continues to medication as able Physical Exam Vital Signs: Temp Pulse Resp BP Pulse Ox 98.6 F 82 20 110/70 96 07/31/18 04:00 07/31/18 04:00 07/31/18 04:00 07/31/18 04:00 07/31/18 04:00 Intake & Output 07/30/18 07/31/18 08/01/18 06:59 06:59 06:59 Intake Total 1467 731 Output Total 250 Balance 1217 731 Weight 62.2 kg 59.2 kg General appearance: PRESENT: no acute distress Head exam: PRESENT: atraumatic, normocephalic Eye exam: PRESENT: conjunctiva pink, EOMI, PERRLA. ABSENT: scleral icterus Ear exam: PRESENT: normal external ear exam Mouth exam: PRESENT: moist, tongue midline Neck exam: ABSENT: carotid bruit, JVD, lymphadenopathy, thyromegaly Respiratory exam: PRESENT: clear to auscultation charley. ABSENT: rales, rhonchi, wheezes Cardiovascular exam: PRESENT: RRR. ABSENT: diastolic murmur, rubs, systolic murmur Pulses: PRESENT: normal dorsalis pedis pul Vascular exam: PRESENT: normal capillary refill GI/Abdominal exam: PRESENT: normal bowel sounds, soft. ABSENT: distended, guarding, mass, organolmegaly, rebound, tenderness Rectal exam: PRESENT: deferred Extremities exam: PRESENT: full ROM. ABSENT: calf tenderness, clubbing, pedal edema Neurological exam: PRESENT: alert, awake, oriented to person. ABSENT: motor sensory deficit Psychiatric exam: PRESENT: appropriate affect, normal mood. ABSENT: homicidal ideation, suicidal ideation Skin exam: PRESENT: dry, intact, warm. ABSENT: cyanosis, rash Results Laboratory Results: 07/28/18 05:25 07/30/18 04:16 07/26/18 00:54 Blood Blood Culture - Final NO GROWTH IN 5 DAYS 07/26/18 07/26/18 07/26/18 00:54 00:54 07:15 Creatine Kinase 577 H Cancelled CK-MB (CK-2) 6.06 H Troponin I 0.093 NT-Pro-B Natriuret Pep 07/26/18 07/26/18 07/26/18 07:15 07:15 07:15 Creatine Kinase 445 H CK-MB (CK-2) 5.00 H Troponin I 0.075 NT-Pro-B Natriuret Pep 55897 H Cancelled 07/26/18 07/26/18 13:56 13:56 Creatine Kinase 383 H CK-MB (CK-2) 4.23 Troponin I 0.063 NT-Pro-B Natriuret Pep Impressions: Cervical Spine CT 07/25/18 20:26 IMPRESSION: 1. No acute intracranial abnormality. 2. No acute fracture or static listhesis of the cervical spine. Head CT 07/25/18 20:26 IMPRESSION: 1. No acute intracranial abnormality. 2. No acute fracture or static listhesis of the cervical spine. Chest CT 07/25/18 21:21 IMPRESSION: There are underlying changes of COPD. In the right posteromedial upper lobe there is a semilunar mass measuring 2.2 x 1.2 x 1.3 cm, abutting the superior medial aspect of the right major fissure. This may represent a true lung base mass or may represent loculated pleural fluid in this portion of the right major fissure. Further evaluation of this finding with a contrast-enhanced CT of the chest is requested TECHNICAL DOCUMENTATION: Quality ID # 436: Final reports with documentation of one or more dose reduction techniques (e.g., Automated exposure control, adjustment of the mA and/or kV according to patient size, use of iterative reconstruction technique) 2010 [employer]- All Rights Reserved Chest X-Ray 07/27/18 00:00 IMPRESSION: Cardiomegaly without CHF. Transfer Plan - Time Spent with Patient Time spent with patient: Greater than 30 Minutes Qualifiers - * PATIENT BEING DISCHARGED WITH ANY OF THE FOLLOWING DIAGNOSIS: Heart Failure VTE patient discharged on overlapping Therapy?: Yes HF Pt being discharged on ACEI for LVEF less than 40%?: No Reason(s) for not prescribing ACEI:: Contraindicated HF Pt being discharged on ARBS for LVEF less than 40%?: No Reason(s) for not prescribing ARBS:: Contraindicated HF Pt with Afib discharged with Warfarin?: No Reason(s) for not prescribing Warfarin:: Not indicated HF Pt discharged on evidence-based Beta Antoinette:: Yes Plan Time Spent: Greater than 30 Minutes - Patient is discharged to the nursing facilities
[2018-07-31] MEDS: ALLOPURINOL 100 MG TABLET PO SCH (12:28)
[2018-07-31] MEDS: LEVETIRACETAM 500 MG TABLET PO SCH (12:31)
[2018-07-31] MEDS: CEFUROXIME 500 MG TABLET PO SCH (12:32)
[2018-07-31] MEDS: ASPIRIN 81 MG TABLET, ENT COATED PO SCH (12:32)
[2018-07-31] MEDS: FUROSEMIDE 20 MG TABLET PO SCH (12:33)
[2018-07-31] MEDS: ACETAZOLAMIDE 250 MG TABLET PO SCH (12:33)
[2018-07-31] MEDS: TAMSULOSIN HCL 0.4 MG CAP.SR.24H PO SCH (12:36)
[2018-07-31] MEDS: ENOXAPARIN SODIUM INJ 30 MG/0.3 ML DISP.SYRIN SUBCUT SCH (12:38)
[2018-07-31 16:12] VITALS: BP 114/69
== END 2018-07-31 18:01 | DRG 291 ==
LOC: ER 20:02 → EH 21:25 → 4N 22:40
PROVIDERS: ADMIT Family Medicine; ATTEND Family Medicine
PROC: 3E0F73Z Introduction of Anti-inflammatory into Respiratory Tract, Via Natural or Artificial Opening (ICD-10-PCS; principal; 2018-07-26)
DX: I13.0 Hypertensive heart and chronic kidney disease with heart failure and stage 1 through stage 4 chronic kidney disease, or unspecified chronic kidney disease (principal); I50.33 Acute on chronic diastolic (congestive) heart failure; I69.351 Hemiplegia and hemiparesis following cerebral infarction affecting right dominant side; K21.9 Gastro-esophageal reflux disease without esophagitis; M19.90 Unspecified osteoarthritis, unspecified site; F03.90 Unspecified dementia, unspecified severity, without behavioral disturbance, psychotic disturbance, mood disturbance, and anxiety; F32.9 Major depressive disorder, single episode, unspecified; J44.9 Chronic obstructive pulmonary disease, unspecified; F41.9 Anxiety disorder, unspecified; N40.0 Benign prostatic hyperplasia without lower urinary tract symptoms; I25.10 Atherosclerotic heart disease of native coronary artery without angina pectoris; G40.909 Epilepsy, unspecified, not intractable, without status epilepticus; N18.9 Chronic kidney disease, unspecified; E11.22 Type 2 diabetes mellitus with diabetic chronic kidney disease; T79.6XXA Traumatic ischemia of muscle, initial encounter; W19.XXXA Unspecified fall, initial encounter; D47.3 Essential (hemorrhagic) thrombocythemia; R74.8 Abnormal levels of other serum enzymes; R91.8 Other nonspecific abnormal finding of lung field; E78.5 Hyperlipidemia, unspecified; Z66 Do not resuscitate; Z79.899 Other long term (current) drug therapy; Z87.820 Personal history of traumatic brain injury; Z95.810 Presence of automatic (implantable) cardiac defibrillator
CPT/HCPCS: 36415; 70450; 71045; 71046; 71250; 72125; 80048; 80053; 81001; 82550; 82553; 82803; 83605; 83735; 83880; 84484; 85025; 87040; 87086; 93005; 93010; 93306; 94640; 96361; 96374; 99285; G8978-GP; G8979-GP; J0692; J1650; J1940; J2543; J2930; J3490; J7030; J7620